=== PATIENT | female | born 1990 | race Caucasian/White ===

== ENCOUNTER 2021-09-10 18:12 | Inpatient (IN) | payer OTHER, SELFPAY ==
--- NOTE | ~2021-09-10 | CT_ITS ---
EXAMINATION: CT HEAD WITHOUT CONTRAST CLINICAL INFORMATION: Altered mental status. COMPARISON: CT head from 08/01/2019. TECHNIQUE: Contiguous axial imaging was performed from the skull base to vertex without intravenous administration of contrast. This CT examination was performed using dose optimization techniques as appropriate, variously including the following: *Automated exposure control. *Adjustment of mA and/or kV according to patient size (this includes techniques or standardized protocols for targeted exams where dose is matched to indication/reason for exam; i.e. extremities or head). *Use of iterative reconstruction technique. DLP: 600 mGy-cm FINDINGS: There is no evidence of acute intracranial hemorrhage or edematous territorial infarction. Chronic small white matter hypoattenuation within the deep white matter of the left parietal lobe. No additional attenuation within the brain parenchyma. Garcia-white matter differentiation is preserved. The ventricles are normal in size and configuration. No evidence for obstructive hydrocephalus. No abnormal mass effect or midline shift. No extra-axial fluid collections. No acute soft tissue or osseous abnormalities. The mastoid air cells and paranasal sinuses are clear. CT/CT head/brain wo con IMPRESSION: 1. No evidence of acute intracranial hemorrhage or edematous territorial infarction. 2. Chronic single nonspecific focus of hypoattenuation within the deep white matter of the left parietal lobe. No additional CT abnormalities to explain the patient's symptoms.
--- NOTE | ~2021-09-10 | XR_ITS ---
EXAMINATION: XR FOOT, RIGHT CLINICAL INFORMATION: Second toe swollen. COMPARISON: None TECHNIQUE: AP, lateral, and oblique views of the right foot. FINDINGS: There is no acute fracture or dislocation. Mild soft tissue swelling is seen in the second digit. The joint spaces are unremarkable. No radiopaque foreign body is seen. XR/XR foot RT 2V IMPRESSION: Mild soft tissue swelling in the second digit without acute underlying osseous abnormality.
[2021-09-10 18:26] VITALS: BP 118/72; PULSE 97; O2SAT 98
[2021-09-10 18:51] VITALS: BP 107/74; PULSE 88; RESP 16; O2SAT 100; BMI 23.1
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
[2021-09-10 20:15] LABS: Appearance Urine CLEAR; Color Urine YELLOW; Glucose Urine UA NEG (NEG); Leukocyte Esterase Urine NEG (NEG); Nitrite Urine NEG (NEG); Specific Gravity - Urine 1.015 (1.005-1.025); Urine Blood NEG (NEG); Urine Ketones 15 MG/DL (NEG); Urine Protein NEG (NEG-TRACE)
[2021-09-10 20:17] LABS: UPreg QC Valid YES; Urine Pregnancy NEGATIVE (NEGATIVE)
[2021-09-10 20:22] LABS: Amphetamine Screen Urine POSITIVE (Not Detect); Barbiturates, Urine Not Detected (Not Detect); Benzodiazepines Screen Urine Not Detected (Not Detect); Cannabinoid Screen Urine Not Detected (Not Detect); Cocaine Screen Urine Not Detected (Not Detect); Fentanyl, urine Not Detected (Not Detect); Opiate Screen Urine Not Detected (Not Detect); Phencyclidine Screen Urine Not Detected (Not Detect)
[2021-09-10 20:31] LABS: COVID-19 Test Negative (Negative)
--- NOTE | 2021-09-11 04:52 | PC.NURSE ---
Patient slept through the night, no distress observed/reported, behavior appropriate and non concerning at this time, med rec completed/pending provider's approval, disposition per [facility] is section 12 inpatient bed search, VSS, patient encouraged to shower but refused, will continue to monitor.
[2021-09-11 06:28] VITALS: BP 113/64; PULSE 59; RESP 18; TEMP 36.9; O2SAT 99
--- NOTE | 2021-09-11 07:01 | PC.NURSE ---
patient appears to remain asleep at present respirations appear to be even and unlabored, patient appears in no distress
[2021-09-11] MEDS: ARIPiprazole 30 MG TABLET PO (12:22)
[2021-09-11 12:44] LABS: COVID-19 Test Negative (Negative); IDNOW Serial# 9DD0AD1C
[2021-09-11 16:00] LABS: MANUAL DIFF FLAG NO
[2021-09-11 16:08] LABS: Basophils Percent Auto 0.5 % (0-2); Eosinophils Absolute Auto 0.1 X10*3/uL (0.0-0.4); Eosinophils Percent Auto 1.1 % (0-4); Hematocrit 38.7 % (37.0-47.0); Hemoglobin 13.1 g/dl (12.0-16.0); Imm Gran Abs Auto 0.01 X10*3/uL (0.00-0.03); Imm Gran Pct Auto 0.2 % (0.0-0.4); Lymphocytes Absolute Auto 1.3 X10*3/uL (1.2-4.9); Lymphocytes Percent Auto 23.3 % (20-40); Mean Corpuscular HGB Conc 33.9 g/dl (31.0-35.0); Mean Corpuscular Hemoglobin 31.5 pg (27.0-33.0); Mean Platelet Volume 10.7 fL (9.4-12.3); Monocytes Absolute Auto 0.3 X10*3/uL (0.1-1.2); Neutrophils Absolute Auto 3.8 x10*3/uL (2.0-8.3); Neutrophils Percent Auto 68.9 % (45-73); Platelet Count 245 X10*3/uL (160-400); Red Blood Count 4.16 X10*6/uL (4.20-5.50); Red Cell Distribution Width 12.1 % (11.0-16.0); White Blood Count 5.5 X10*3/uL (4.8-10.8)
[2021-09-11 16:18] LABS: Alanine Aminotransferase 9 U/L (0-31); Albumin Level 3.6 g/dL (3.5-5.0); Alkaline Phosphatase 58 U/L (39-117); Anion Gap 8 (12-20); Aspartate Amino Transferase 11 U/L (5-31); Bilirubin Total 0.8 mg/dL (0.0-1.0); Blood Urea Nitrogen 7 mg/dL (9-16); Calcium 9.1 mg/dL (8.4-10.2); Carbon Dioxide 27 mmol/L (22-29); Chloride 107 mmol/L (96-108); Creatinine Clr Calc Pharmacy 95.9; Estimated Glomerular Filt Rate > 60; Glucose Random 106 mg/dL (60-115); Sodium 138 mmol/L (135-145); Total Protein 5.8 g/dL (6.5-8.0)
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
[2021-09-12 06:00] VITALS: BP 86/61; PULSE 55; RESP 16; TEMP 36.3; O2SAT 100
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
[2021-09-12 09:03] LABS: Cholesterol 151 mg/dL; HDL Cholesterol 44 mg/dL; LDL Cholesterol Calculated 95 mg/dl; Triglycerides 60 mg/dL
[2021-09-12 09:04] LABS: Estimated Average Glucose 88 mg/dL; Hemoglobin A1c % 4.7 %
[2021-09-12 11:32] LABS: Folate 9.1 ng/mL (> or = 4.0); Vitamin B12 496 pg/mL (200-900)
[2021-09-12 21:51] VITALS: BP 102/64; PULSE 92; TEMP 36.8; O2SAT 98
--- NOTE | 2021-09-12 23:42 | PC.NURSE ---
REFUSED hs risperdal stating she takes abilify.
[2021-09-13 08:57] VITALS: BP 152/68; PULSE 84; RESP 16; TEMP 36.2; O2SAT 97
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
[2021-09-13 20:24] VITALS: BP 108/65; PULSE 98; TEMP 36.6; O2SAT 99
[2021-09-13] MEDS: risperiDONE 1 MG TABLET PO (21:59)
[2021-09-14 10:10] VITALS: BP 116/71; PULSE 101; RESP 14; TEMP 36.8; O2SAT 100
[2021-09-14] MEDS: risperiDONE 1 MG TABLET PO ×2 (10:12→21:59)
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
[2021-09-14 21:50] VITALS: BP 83/61; PULSE 99; TEMP 36.4; O2SAT 96
[2021-09-15] MEDS: risperiDONE 1 MG TABLET PO (10:01)
[2021-09-15 10:55] VITALS: BP 108/69; PULSE 111; RESP 20; TEMP 36.2; O2SAT 100
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
[2021-09-15] MEDS: risperiDONE 2 MG TABLET PO (22:24)
[2021-09-15 22:30] VITALS: BP 119/65; PULSE 112; TEMP 36.6; O2SAT 97
[2021-09-16 09:00] VITALS: BP 104/72; PULSE 105; RESP 20; TEMP 36.6; O2SAT 99
[2021-09-16] MEDS: risperiDONE 2 MG TABLET PO ×2 (09:34→21:11)
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
--- NOTE | 2021-09-16 15:46 | PC.NURSE ---
Patient reports she does not smoke.
[2021-09-16 18:00] VITALS: BP 116/80; PULSE 104; RESP 18; TEMP 36.8; O2SAT 98
--- NOTE | 2021-09-16 18:12 | PC.NURSE ---
Patient agreed to shower and have clothes laundered, linens changed.
[2021-09-16] MEDS: traZODone HCL 50 MG TABLET PO (21:11)
[2021-09-17 10:00] VITALS: BP 119/68; PULSE 117; RESP 16; TEMP 36.8; O2SAT 96
[2021-09-17] MEDS: risperiDONE 2 MG TABLET PO ×2 (10:07→20:04)
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
[2021-09-17 20:08] VITALS: BP 111/83; PULSE 120; TEMP 36.8; O2SAT 99
[2021-09-18 09:30] VITALS: BP 95/53; PULSE 79; RESP 16; TEMP 36.2; O2SAT 98
[2021-09-18] MEDS: risperiDONE 2 MG TABLET PO ×2 (09:32→20:41)
[2021-09-18 12:02] VITALS: BMI 23.6
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
[2021-09-18 20:59] VITALS: BP 125/75; PULSE 120; TEMP 36.6; O2SAT 95
[2021-09-19] MEDS: risperiDONE 2 MG TABLET PO ×2 (08:46→20:47)
[2021-09-19 11:38] VITALS: BP 118/72; PULSE 119; RESP 16; TEMP 36.4; O2SAT 95
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
[2021-09-19 20:51] VITALS: BP 118/79; PULSE 109; TEMP 36.6; O2SAT 96
[2021-09-20 09:49] VITALS: BP 125/76; PULSE 111; RESP 16; TEMP 36.5; O2SAT 98
[2021-09-20] MEDS: risperiDONE 2 MG TABLET PO ×2 (09:49→20:34)
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
[2021-09-20 20:35] VITALS: BP 116/84; PULSE 116; RESP 15; TEMP 36.7; O2SAT 100
[2021-09-21] MEDS: risperiDONE 2 MG TABLET PO ×2 (10:32→21:12)
[2021-09-21 11:09] VITALS: BP 122/73; PULSE 111; RESP 18; TEMP 36.4; O2SAT 95
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
[2021-09-21 18:00] VITALS: BP 139/70; PULSE 98; RESP 18; TEMP 37; O2SAT 98
[2021-09-22] MEDS: risperiDONE 2 MG TABLET PO ×2 (10:04→20:31)
[2021-09-22 10:11] VITALS: BP 125/73; PULSE 123; RESP 16; TEMP 36.6; O2SAT 98
[2021-09-22 18:00] VITALS: BP 107/69; PULSE 114; RESP 16; TEMP 36.8; O2SAT 98
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
[2021-09-23] MEDS: risperiDONE 2 MG TABLET PO ×2 (10:08→21:11)
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
[2021-09-23 22:12] VITALS: BP 127/73; PULSE 112; TEMP 36.6; O2SAT 98
[2021-09-24 08:00] VITALS: BP 120/76; PULSE 104; RESP 14; TEMP 36.4; O2SAT 98
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
[2021-09-24] MEDS: risperiDONE 2 MG TABLET PO (09:38)
[2021-09-24 20:59] VITALS: BP 116/71; PULSE 102; O2SAT 97
[2021-09-24] MEDS: risperiDONE 3 MG TABLET PO (21:06)
[2021-09-24] MEDS: Acetaminophen 325 MG TABLET 650 MG PO (21:14)
[2021-09-24 21:25] VITALS: TEMP 36.6
[2021-09-24] MEDS: guaiFENesin DM 600/30 1 TAB TAB.ER.12H PO (22:46)
[2021-09-24 22:59] LABS: COVID-19 Test Negative (Negative)
[2021-09-25 07:00] VITALS: BMI 24.0
[2021-09-25] MEDS: risperiDONE 3 MG TABLET PO ×2 (10:55→21:24)
[2021-09-25 11:25] VITALS: BP 114/75; PULSE 102; RESP 18; TEMP 36.2; O2SAT 96
[2021-09-25] MEDS: guaiFENesin DM 600/30 1 TAB TAB.ER.12H PO ×2 (12:55→21:24)
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
[2021-09-25 18:00] VITALS: BP 118/67; PULSE 108; RESP 18; TEMP 36.8; O2SAT 97
[2021-09-25] MEDS: Acetaminophen 325 MG TABLET 650 MG PO (21:24)
[2021-09-26] MEDS: risperiDONE 3 MG TABLET PO ×2 (09:59→20:18)
[2021-09-26] MEDS: guaiFENesin DM 600/30 1 TAB TAB.ER.12H PO ×2 (10:04→20:18)
[2021-09-26] MEDS: Acetaminophen 325 MG TABLET 650 MG PO ×2 (10:04→20:18)
[2021-09-26 10:27] VITALS: BP 111/68; PULSE 96; RESP 17; TEMP 36.3; O2SAT 96
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
[2021-09-26 20:14] VITALS: BP 116/70; PULSE 110; TEMP 36.6; O2SAT 96
[2021-09-27 08:30] VITALS: BP 115/62; PULSE 90; RESP 16; TEMP 36.8; O2SAT 96
[2021-09-27] MEDS: risperiDONE 3 MG TABLET PO ×2 (08:30→21:20)
[2021-09-27] MEDS: guaiFENesin DM 600/30 1 TAB TAB.ER.12H PO ×2 (08:33→21:20)
[2021-09-27] MEDS: Acetaminophen 325 MG TABLET 650 MG PO ×2 (08:33→21:20)
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
[2021-09-27] MEDS: Loratadine 10 MG TABLET PO (16:27)
[2021-09-27 21:00] VITALS: BP 113/60; PULSE 112; TEMP 36.7; O2SAT 97
[2021-09-28] MEDS: risperiDONE 3 MG TABLET PO ×2 (08:26→21:09)
[2021-09-28] MEDS: Loratadine 10 MG TABLET PO (08:26)
[2021-09-28 08:30] VITALS: BP 106/71; PULSE 76; RESP 16; TEMP 36.6; O2SAT 97
[2021-09-28] MEDS: Acetaminophen 325 MG TABLET 650 MG PO ×2 (08:44→21:09)
[2021-09-28] MEDS: guaiFENesin DM 600/30 1 TAB TAB.ER.12H PO ×2 (08:44→21:09)
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
[2021-09-28 18:00] VITALS: BP 109/72; PULSE 102; RESP 18; TEMP 36.8; O2SAT 99
[2021-09-29] MEDS: risperiDONE 3 MG TABLET PO ×2 (10:22→21:29)
[2021-09-29] MEDS: Loratadine 10 MG TABLET PO (10:22)
[2021-09-29] MEDS: Acetaminophen 325 MG TABLET 650 MG PO ×2 (10:25→21:29)
[2021-09-29 10:28] VITALS: BP 106/58; PULSE 91; RESP 14; TEMP 36.1; O2SAT 96
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
[2021-09-29 18:00] VITALS: BP 127/65; PULSE 104; RESP 18; TEMP 36.6; O2SAT 99
[2021-09-29] MEDS: guaiFENesin DM 600/30 1 TAB TAB.ER.12H PO (21:29)
[2021-09-30] MEDS: Loratadine 10 MG TABLET PO ×2 (10:09→21:44)
[2021-09-30] MEDS: risperiDONE 3 MG TABLET PO ×2 (10:09→21:50)
[2021-09-30 10:10] VITALS: BP 116/76; PULSE 110; RESP 16; TEMP 36.7; O2SAT 97
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
[2021-09-30 18:00] VITALS: BP 108/43; PULSE 140; RESP 18; TEMP 36.6; O2SAT 98
[2021-09-30] MEDS: Acetaminophen 325 MG TABLET 650 MG PO (23:43)
[2021-10-01 01:40] VITALS: BP 97/56; PULSE 102; RESP 14; O2SAT 97
[2021-10-01 08:37] VITALS: BP 114/72; PULSE 91; RESP 16; TEMP 36.7; O2SAT 98
[2021-10-01] MEDS: guaiFENesin DM 600/30 1 TAB TAB.ER.12H PO ×2 (08:39→20:40)
[2021-10-01] MEDS: risperiDONE 3 MG TABLET PO ×2 (08:40→20:36)
[2021-10-01] MEDS: Loratadine 10 MG TABLET PO (08:55)
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
[2021-10-01 18:00] VITALS: BP 101/68; PULSE 131; RESP 20; TEMP 36.6; O2SAT 98
--- NOTE | 2021-10-01 20:12 | PC.NURSE ---
At 20:00 pt was seen with money in her hand. T/w asked pt how much money she had, stated $21. Pt refused to give t/w the money to be put in the safe with security. Pt reported she has been carrying it around for days
[2021-10-01] MEDS: Acetaminophen 325 MG TABLET 650 MG PO (22:04)
--- NOTE | 2021-10-02 00:20 | PC.NURSE ---
Pt was noted by PC to be tracking blood on the floor from a cut upon her foot. Upon assessment by this RN, pt was found to have a round cut on the tip of her 2nd right toe. Wound was cleansed with normal saline, bacitracin applied and bandaids also applied. Pt was monitored throughout shift. Pt stated no pain.
[2021-10-02 08:30] VITALS: BP 123/78; PULSE 80; RESP 16; TEMP 36.3; O2SAT 99
[2021-10-02] MEDS: risperiDONE 3 MG TABLET PO ×2 (08:38→20:11)
[2021-10-02] MEDS: guaiFENesin DM 600/30 1 TAB TAB.ER.12H PO ×2 (08:38→20:11)
[2021-10-02] MEDS: Loratadine 10 MG TABLET PO (08:38)
[2021-10-02 09:00] VITALS: BMI 24.9
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
[2021-10-02 18:00] VITALS: BP 131/59; PULSE 137; RESP 18; TEMP 36.7; O2SAT 96
[2021-10-02] MEDS: Acetaminophen 325 MG TABLET 650 MG PO (20:11)
[2021-10-03 09:50] VITALS: BP 116/78; PULSE 97; RESP 15; TEMP 36.9; O2SAT 95
[2021-10-03] MEDS: risperiDONE 3 MG TABLET PO (09:53)
[2021-10-03] MEDS: Loratadine 10 MG TABLET PO (09:53)
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
[2021-10-03 18:00] VITALS: BP 116/72; PULSE 106; RESP 18; O2SAT 98
[2021-10-03] MEDS: Benztropine Mesylate 1 MG TABLET PO (18:25)
[2021-10-03] MEDS: Lithium Carbonate ER 450 MG TABLET.ER PO (20:39)
[2021-10-03] MEDS: OLANZapine ODT 10 MG TAB.RAPDIS TRANSLINGU (20:39)
[2021-10-03] MEDS: Acetaminophen 325 MG TABLET 650 MG PO (21:12)
[2021-10-04 08:30] VITALS: BP 108/66; PULSE 107; RESP 16; TEMP 36.6; O2SAT 96
[2021-10-04] MEDS: risperiDONE 1 MG TABLET PO (09:35)
[2021-10-04] MEDS: Loratadine 10 MG TABLET PO (09:35)
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
[2021-10-04] MEDS: Benztropine Mesylate 1 MG TABLET PO (18:02)
[2021-10-04] MEDS: Lithium Carbonate ER 450 MG TABLET.ER PO (20:22)
[2021-10-04] MEDS: OLANZapine ODT 10 MG TAB.RAPDIS TRANSLINGU (20:22)
[2021-10-04] MEDS: Acetaminophen 325 MG TABLET 650 MG PO (20:22)
[2021-10-04 20:26] VITALS: BP 96/74; PULSE 120; RESP 16; TEMP 36.3; O2SAT 98
[2021-10-05 08:15] VITALS: BP 112/77; PULSE 78; RESP 14; TEMP 36.9; O2SAT 97
[2021-10-05] MEDS: Loratadine 10 MG TABLET PO (08:36)
[2021-10-05] MEDS: risperiDONE 1 MG TABLET PO (08:37)
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
[2021-10-05 18:00] VITALS: BP 110/66; PULSE 108; RESP 16; TEMP 36.3; O2SAT 95
[2021-10-05] MEDS: Lithium Carbonate ER 450 MG TABLET.ER PO (20:10)
[2021-10-05] MEDS: OLANZapine ODT 10 MG TAB.RAPDIS TRANSLINGU (20:10)
[2021-10-06 08:14] VITALS: BP 102/68; PULSE 107; RESP 16; TEMP 37.1; O2SAT 97
[2021-10-06] MEDS: Loratadine 10 MG TABLET PO (08:15)
[2021-10-06] MEDS: risperiDONE 1 MG TABLET PO (08:15)
[2021-10-06 18:00] VITALS: BP 105/69; PULSE 108; RESP 16; TEMP 36.8; O2SAT 96
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
[2021-10-06 19:11] LABS: Lithium 0.22 mmol/L (0.60-1.20)
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
[2021-10-06] MEDS: OLANZapine ODT 10 MG TAB.RAPDIS TRANSLINGU (20:24)
[2021-10-06] MEDS: Lithium Carbonate ER 450 MG TABLET.ER PO (20:24)
[2021-10-06] MEDS: HaloperidoL 5 MG TABLET PO (20:24)
[2021-10-07 08:19] VITALS: BP 106/66; PULSE 87; RESP 16; O2SAT 98
[2021-10-07] MEDS: Loratadine 10 MG TABLET PO (08:25)
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
[2021-10-07 20:42] VITALS: BP 87/52; PULSE 84; TEMP 36.2; O2SAT 96
[2021-10-07] MEDS: Lithium Carbonate ER 450 MG TABLET.ER PO (20:53)
[2021-10-07] MEDS: OLANZapine ODT 10 MG TAB.RAPDIS TRANSLINGU (20:53)
[2021-10-07] MEDS: HaloperidoL 5 MG TABLET PO (20:53)
[2021-10-07 22:56] VITALS: BP 92/51; PULSE 90
[2021-10-08 08:19] VITALS: BP 85/56; PULSE 58; RESP 16; TEMP 36.6; O2SAT 98
[2021-10-08 08:34] VITALS: BP 79/50; PULSE 71
[2021-10-08 08:35] VITALS: BP 91/65; BP 97/66; PULSE 77; PULSE 99
[2021-10-08] MEDS: Loratadine 10 MG TABLET PO (08:38)
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
[2021-10-08] MEDS: Benztropine Mesylate 1 MG TABLET PO (20:47)
[2021-10-08] MEDS: OLANZapine ODT 10 MG TAB.RAPDIS TRANSLINGU (21:38)
[2021-10-08] MEDS: Lithium Carbonate ER 450 MG TABLET.ER PO (21:39)
[2021-10-08] MEDS: HaloperidoL 5 MG TABLET PO (21:39)
[2021-10-08 21:45] VITALS: BP 103/69; PULSE 97; RESP 18; TEMP 36.7; O2SAT 97
[2021-10-09] MEDS: Loratadine 10 MG TABLET PO (09:01)
[2021-10-09 09:03] VITALS: BP 110/69; PULSE 65; RESP 15; TEMP 36.4; O2SAT 100
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
[2021-10-09] MEDS: Benztropine Mesylate 1 MG TABLET PO ×2 (16:44→22:03)
[2021-10-09] MEDS: HaloperidoL 5 MG TABLET PO (20:40)
[2021-10-09] MEDS: OLANZapine ODT 10 MG TAB.RAPDIS TRANSLINGU (20:40)
[2021-10-09] MEDS: Lithium Carbonate ER 450 MG TABLET.ER PO (20:40)
[2021-10-09 20:41] VITALS: BP 105/66; PULSE 111; RESP 18; TEMP 36.5; O2SAT 94
[2021-10-09] MEDS: traZODone HCL 50 MG TABLET PO (21:19)
[2021-10-10] MEDS: Loratadine 10 MG TABLET PO (08:30)
[2021-10-10 08:41] VITALS: BP 97/55; PULSE 56; RESP 16; TEMP 36.8; O2SAT 100
[2021-10-10 12:07] LABS: Erythrocyte Sedimentation Rate 2 MM/HR (0-20)
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
[2021-10-10] MEDS: LORazepam 2 MG/ML VIAL IM (17:38)
[2021-10-10 20:15] VITALS: BP 103/51; PULSE 93; RESP 16; TEMP 36.7; O2SAT 95
[2021-10-10] MEDS: hydrOXYzine HCL 25 MG TABLET PO (21:07)
[2021-10-10] MEDS: OLANZapine ODT 10 MG TAB.RAPDIS 15 MG TRANSLINGU (21:08)
[2021-10-10] MEDS: LORazepam 1 MG TABLET PO (21:08)
[2021-10-10] MEDS: Lithium Carbonate ER 450 MG TABLET.ER PO (21:08)
[2021-10-11 09:20] VITALS: BP 108/73; PULSE 92; RESP 16; TEMP 36.1; O2SAT 97
[2021-10-11] MEDS: Loratadine 10 MG TABLET PO (09:20)
[2021-10-11] MEDS: LORazepam 1 MG TABLET PO ×2 (09:20→21:01)
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
[2021-10-11 20:11] VITALS: BP 91/51; PULSE 91; RESP 16; TEMP 36.8; O2SAT 98
[2021-10-11] MEDS: Lithium Carbonate ER 450 MG TABLET.ER PO (21:01)
[2021-10-11] MEDS: OLANZapine ODT 10 MG TAB.RAPDIS 15 MG TRANSLINGU (21:01)
[2021-10-11] MEDS: hydrOXYzine HCL 25 MG TABLET PO (21:58)
[2021-10-12 09:47] VITALS: BP 96/57; PULSE 72; RESP 15; TEMP 36.1; O2SAT 97
[2021-10-12] MEDS: Loratadine 10 MG TABLET PO (09:49)
[2021-10-12] MEDS: LORazepam 1 MG TABLET PO ×2 (09:49→21:12)
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
[2021-10-12 21:04] VITALS: BP 102/55; PULSE 87; RESP 18; TEMP 36.4; O2SAT 98
[2021-10-12] MEDS: Lithium Carbonate ER 450 MG TABLET.ER PO (21:12)
[2021-10-12] MEDS: OLANZapine ODT 10 MG TAB.RAPDIS 15 MG TRANSLINGU (21:14)
[2021-10-12] MEDS: hydrOXYzine HCL 25 MG TABLET PO (21:25)
[2021-10-13 08:45] VITALS: BP 102/67; PULSE 75; RESP 12; TEMP 36.6; O2SAT 97
[2021-10-13] MEDS: Loratadine 10 MG TABLET PO (08:50)
[2021-10-13] MEDS: LORazepam 1 MG TABLET PO ×2 (08:50→21:51)
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
[2021-10-13] MEDS: Benztropine Mesylate 1 MG TABLET PO (18:59)
[2021-10-13] MEDS: Lithium Carbonate ER 450 MG TABLET.ER PO (21:51)
[2021-10-13] MEDS: hydrOXYzine HCL 25 MG TABLET PO (21:52)
[2021-10-13] MEDS: OLANZapine ODT 10 MG TAB.RAPDIS 15 MG TRANSLINGU (21:52)
[2021-10-13 21:53] VITALS: BP 105/73; PULSE 110; RESP 17; TEMP 36.4; O2SAT 96
[2021-10-14] MEDS: Acetaminophen 325 MG TABLET 650 MG PO (00:52)
[2021-10-14 08:00] VITALS: BP 96/59; PULSE 72; RESP 16; TEMP 36.3; O2SAT 99
[2021-10-14] MEDS: Loratadine 10 MG TABLET PO (08:27)
[2021-10-14] MEDS: LORazepam 1 MG TABLET PO ×2 (08:27→21:02)
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
--- NOTE | 2021-10-14 10:00 | PM.EVENT ---
Event Note Date of Service: 10/14/21 Event Note: For [employer] Application- Section 3 Ms. Zhang is a 31 year-old woman with hx of schizoaffective disorder. Pt admitted to [facility] on 09/25 due to pentecostal preoccupation, inability to care for herself- poor hygiene, mostly in room. Pt had trial of risperidone up to 3mg po BID for about 3-4 weeks with no response. Pt continued to present as disheveled, religiously preoccupied, minimal interaction with peers. Pt declined switching medications. She was committed on 10/09. She was started on olanzapine, lithium. Ativan added for catatonic like symptoms including long periods of staring, mutism (minimally spontaneous speech), psychomotor retardation. No change in presentation so far.
[2021-10-14 11:01] LABS: Anti Nuclear Antibody Screen NEGATIVE (NEGATIVE)
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
[2021-10-14 20:51] VITALS: BP 106/57; PULSE 84; RESP 16; TEMP 36.6; O2SAT 96
[2021-10-14] MEDS: Lithium Carbonate ER 450 MG TABLET.ER PO (21:02)
[2021-10-14] MEDS: hydrOXYzine HCL 25 MG TABLET PO (21:02)
[2021-10-14] MEDS: OLANZapine ODT 10 MG TAB.RAPDIS 15 MG TRANSLINGU (21:03)
[2021-10-15] MEDS: Acetaminophen 325 MG TABLET 650 MG PO ×3 (01:22→20:45)
[2021-10-15 07:45] VITALS: BP 111/73; BP 112/67; BP 85/51; PULSE 110; PULSE 74; PULSE 90; RESP 14; TEMP 36.6; O2SAT 98
[2021-10-15] MEDS: LORazepam 1 MG TABLET PO ×2 (07:59→20:45)
[2021-10-15] MEDS: Loratadine 10 MG TABLET PO (07:59)
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
[2021-10-15 14:17] LABS: Cardiolipin IgG Ab <2.0 GPL-U/mL; Cardiolipin IgM Ab 2.5 MPL-U/mL
[2021-10-15] MEDS: Benztropine Mesylate 1 MG TABLET PO (18:32)
[2021-10-15 19:23] LABS: MANUAL DIFF FLAG NO
[2021-10-15 19:25] LABS: Basophils Absolute Auto 0.1 X10*3/uL (0.0-0.2); Basophils Percent Auto 0.8 % (0-2); Eosinophils Absolute Auto 0.3 X10*3/uL (0.0-0.4); Eosinophils Percent Auto 4.7 % (0-4); Hematocrit 39.2 % (37.0-47.0); Imm Gran Abs Auto 0.03 X10*3/uL (0.00-0.03); Imm Gran Pct Auto 0.5 % (0.0-0.4); Lymphocytes Absolute Auto 1.7 X10*3/uL (1.2-4.9); Lymphocytes Percent Auto 25.5 % (20-40); Mean Corpuscular HGB Conc 33.2 g/dl (31.0-35.0); Mean Corpuscular Volume 96.6 fL (80.0-98.0); Mean Platelet Volume 10.9 fL (9.4-12.3); Monocytes Absolute Auto 0.5 X10*3/uL (0.1-1.2); Monocytes Percent Auto 8.1 % (2-11); Neutrophils Percent Auto 60.4 % (45-73); Platelet Count 255 X10*3/uL (160-400); Red Blood Count 4.06 X10*6/uL (4.20-5.50); Red Cell Distribution Width 12.3 % (11.0-16.0); White Blood Count 6.6 X10*3/uL (4.8-10.8)
[2021-10-15 19:40] LABS: Lithium 0.21 mmol/L (0.60-1.20)
[2021-10-15 19:48] LABS: Alanine Aminotransferase 59 U/L (0-31); Albumin Level 4.1 g/dL (3.5-5.0); Alkaline Phosphatase 81 U/L (39-117); Anion Gap 14 (12-20); Aspartate Amino Transferase 27 U/L (5-31); Bilirubin Total 0.7 mg/dL (0.0-1.0); Blood Urea Nitrogen 12 mg/dL (9-16); Calcium 9.3 mg/dL (8.4-10.2); Carbon Dioxide 25 mmol/L (22-29); Chloride 104 mmol/L (96-108); Creatinine Clr Calc Pharmacy 97.2; Estimated Glomerular Filt Rate > 60; Glucose Random 134 mg/dL (60-115); Potassium 4.2 mmol/L (3.3-5.1); Sodium 139 mmol/L (135-145); Total Protein 6.7 g/dL (6.5-8.0)
[2021-10-15 20:11] LABS: Thyroid Stimulating Hormone 1.36 uIU/mL (0.32-4.0)
[2021-10-15] MEDS: hydrOXYzine HCL 25 MG TABLET PO (20:45)
[2021-10-15] MEDS: HaloperidoL 5 MG TABLET PO (20:45)
[2021-10-15] MEDS: Lithium Carbonate ER 450 MG TABLET.ER PO (20:45)
[2021-10-15 21:10] VITALS: BP 109/75; PULSE 112; RESP 18; TEMP 36.4; O2SAT 96
[2021-10-15] MEDS: traZODone HCL 100 MG TABLET PO (23:48)
[2021-10-16] MEDS: Benztropine Mesylate 1 MG TABLET PO ×2 (01:46→18:48)
[2021-10-16 06:00] VITALS: BP 106/72; PULSE 84; RESP 16; TEMP 34.8; O2SAT 100
[2021-10-16 07:00] VITALS: BMI 26.4
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
[2021-10-16 18:00] VITALS: BP 114/72; PULSE 118; RESP 16; TEMP 36.4; O2SAT 97
[2021-10-16] MEDS: Lithium Carbonate ER 450 MG TABLET.ER PO (20:47)
[2021-10-16] MEDS: HaloperidoL 5 MG TABLET PO (20:47)
[2021-10-16] MEDS: LORazepam 1 MG TABLET PO (20:47)
[2021-10-16] MEDS: hydrOXYzine HCL 25 MG TABLET PO (20:48)
[2021-10-16] MEDS: traZODone HCL 100 MG TABLET PO (22:31)
[2021-10-17 08:00] VITALS: BP 103/71; BP 98/76; PULSE 106; PULSE 80; RESP 16; TEMP 36.7; O2SAT 98
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
[2021-10-17] MEDS: Benztropine Mesylate 1 MG TABLET PO (15:10)
[2021-10-17 20:05] VITALS: BP 110/68; PULSE 95; RESP 17; TEMP 36.4; O2SAT 97
[2021-10-17] MEDS: HaloperidoL 5 MG TABLET PO (20:12)
[2021-10-17] MEDS: Lithium Carbonate ER 450 MG TABLET.ER PO (20:12)
[2021-10-17] MEDS: LORazepam 1 MG TABLET PO (20:12)
[2021-10-17] MEDS: hydrOXYzine HCL 25 MG TABLET PO (20:12)
[2021-10-17] MEDS: Acetaminophen 325 MG TABLET 650 MG PO (20:30)
[2021-10-17] MEDS: traZODone HCL 100 MG TABLET PO (22:43)
[2021-10-18 09:33] VITALS: BP 116/70; PULSE 85; RESP 20; TEMP 36.1; O2SAT 96
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
[2021-10-18] MEDS: Benztropine Mesylate 1 MG TABLET PO (16:28)
[2021-10-18] MEDS: HaloperidoL 5 MG TABLET PO ×2 (17:12→20:30)
[2021-10-18 18:00] VITALS: BP 104/70; PULSE 72; RESP 20; TEMP 36.6; O2SAT 97
[2021-10-18] MEDS: Acetaminophen 325 MG TABLET 650 MG PO (18:33)
[2021-10-18] MEDS: Lithium Carbonate ER 450 MG TABLET.ER PO (20:31)
[2021-10-18] MEDS: LORazepam 1 MG TABLET PO (20:31)
[2021-10-18] MEDS: hydrOXYzine HCL 25 MG TABLET PO (20:31)
[2021-10-19 06:00] VITALS: BP 82/54; PULSE 75; RESP 16; TEMP 36.6; O2SAT 97
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
[2021-10-19] MEDS: Benztropine Mesylate 1 MG TABLET PO (15:22)
[2021-10-19] MEDS: HaloperidoL 5 MG TABLET PO ×3 (16:22→22:22)
[2021-10-19] MEDS: Acetaminophen 325 MG TABLET 650 MG PO (18:28)
[2021-10-19 21:14] VITALS: BP 106/54; PULSE 101; RESP 16; TEMP 36.4; O2SAT 98
[2021-10-19] MEDS: Lithium Carbonate ER 450 MG TABLET.ER PO (21:19)
[2021-10-19] MEDS: LORazepam 1 MG TABLET PO (21:19)
[2021-10-19] MEDS: hydrOXYzine HCL 25 MG TABLET PO (21:35)
[2021-10-20 06:00] VITALS: BP 98/51; PULSE 64; RESP 18; TEMP 36.4; O2SAT 96
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
[2021-10-20] MEDS: Benztropine Mesylate 1 MG TABLET PO (15:07)
[2021-10-20] MEDS: Acetaminophen 325 MG TABLET 650 MG PO (15:23)
[2021-10-20] MEDS: HaloperidoL 5 MG TABLET PO (21:10)
[2021-10-20] MEDS: hydrOXYzine HCL 25 MG TABLET PO (21:11)
[2021-10-20] MEDS: cloZAPine 25 MG TABLET 12.5 MG PO (21:11)
[2021-10-20] MEDS: LORazepam 1 MG TABLET PO (21:11)
[2021-10-20 21:30] VITALS: BP 108/71; PULSE 111; RESP 18; TEMP 36.6; O2SAT 98
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
[2021-10-21 09:40] VITALS: BP 102/58; PULSE 70; RESP 17; TEMP 35.9; O2SAT 95
[2021-10-21] MEDS: Acetaminophen 325 MG TABLET 650 MG PO (14:56)
[2021-10-21] MEDS: Benztropine Mesylate 1 MG TABLET PO (14:56)
[2021-10-21] MEDS: LORazepam 1 MG TABLET PO ×2 (18:06→20:17)
[2021-10-21 20:17] VITALS: BP 111/68; PULSE 118; RESP 20; TEMP 36.6; O2SAT 98
[2021-10-21] MEDS: HaloperidoL 5 MG TABLET PO (20:17)
[2021-10-21] MEDS: hydrOXYzine HCL 25 MG TABLET PO (20:17)
[2021-10-21] MEDS: cloZAPine 25 MG TABLET 12.5 MG PO (20:17)
[2021-10-22 08:30] VITALS: BP 106/70; PULSE 72; RESP 16; TEMP 36.7; O2SAT 98
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
[2021-10-22 09:01] LABS: Neut%MD 52.8 %; Neutrophils Absolute Auto 3.4 x10*3/uL (2.0-8.3); WBCANC 6.5 X10*3/uL
[2021-10-22] MEDS: LORazepam 1 MG TABLET PO ×2 (15:48→20:11)
[2021-10-22] MEDS: Benztropine Mesylate 1 MG TABLET PO (19:28)
[2021-10-22 20:05] VITALS: BP 116/78; PULSE 129; RESP 18; TEMP 36.3; O2SAT 97
[2021-10-22] MEDS: HaloperidoL 5 MG TABLET PO (20:11)
[2021-10-22] MEDS: hydrOXYzine HCL 25 MG TABLET PO (20:11)
[2021-10-22] MEDS: cloZAPine 25 MG TABLET PO (20:11)
[2021-10-23] MEDS: traZODone HCL 100 MG TABLET PO (00:39)
[2021-10-23] MEDS: LORazepam 1 MG TABLET PO (00:39)
[2021-10-23 08:37] VITALS: BP 87/52; PULSE 87; RESP 16; TEMP 36.5; O2SAT 96
[2021-10-23 12:05] VITALS: BMI 26.9
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
[2021-10-23 18:00] VITALS: BP 98/56; PULSE 106; RESP 18; TEMP 36.8; O2SAT 97
[2021-10-23] MEDS: LORazepam 1 MG TABLET 2 MG PO (20:41)
[2021-10-23] MEDS: cloZAPine 25 MG TABLET PO (20:41)
[2021-10-23] MEDS: Benztropine Mesylate 1 MG TABLET PO (20:41)
[2021-10-23] MEDS: hydrOXYzine HCL 25 MG TABLET PO (20:41)
[2021-10-23] MEDS: HaloperidoL 5 MG TABLET 2.5 MG PO (20:43)
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
[2021-10-24 11:19] VITALS: BP 87/52; PULSE 79
[2021-10-24 11:24] VITALS: BP 103/72; BP 117/74; PULSE 120; PULSE 94
[2021-10-24] MEDS: LORazepam 1 MG TABLET PO (14:31)
[2021-10-24 17:51] VITALS: BP 117/74; PULSE 80
[2021-10-24 17:52] VITALS: BP 119/83; PULSE 89
[2021-10-24 17:53] VITALS: BP 133/78; PULSE 98
[2021-10-24] MEDS: Benztropine Mesylate 1 MG TABLET PO (18:21)
[2021-10-24] MEDS: HaloperidoL 5 MG TABLET 2.5 MG PO (20:14)
[2021-10-24] MEDS: LORazepam 1 MG TABLET 2 MG PO (20:14)
[2021-10-24] MEDS: cloZAPine 25 MG TABLET PO (20:15)
[2021-10-24] MEDS: hydrOXYzine HCL 25 MG TABLET PO (20:18)
[2021-10-24 20:22] VITALS: BP 117/64; PULSE 105; TEMP 36.8; O2SAT 95
[2021-10-25] MEDS: LORazepam 1 MG TABLET PO ×3 (00:35→23:42)
[2021-10-25] MEDS: traZODone HCL 100 MG TABLET PO (00:35)
[2021-10-25 09:59] VITALS: BP 85/53; PULSE 68; TEMP 36.6; O2SAT 97
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
[2021-10-25 20:09] VITALS: BP 115/61; PULSE 102; TEMP 36.6; O2SAT 95
[2021-10-25] MEDS: cloZAPine 25 MG TABLET 37.5 MG PO (20:12)
[2021-10-25] MEDS: HaloperidoL 5 MG TABLET 2.5 MG PO (20:13)
[2021-10-26 13:02] VITALS: BP 101/60; PULSE 96; RESP 12; TEMP 35.9; O2SAT 100
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
--- NOTE | 2021-10-26 16:04 | ECG_ITS ---
Test Reason : medication trial Blood Pressure : / mmHG Vent. Rate : 102 BPM Atrial Rate : 102 BPM P-R Int : 134 ms QRS Dur : 078 ms QT Int : 346 ms P-R-T Axes : 073 074 053 degrees QTc Int : 450 ms Sinus tachycardia with occasional Premature ventricular complexes Otherwise normal ECG No previous ECGs available Referred By: Elida Jackson Electronically Signed By:BOLIVAR HOLDEN
[2021-10-26] MEDS: Benztropine Mesylate 1 MG TABLET PO (16:23)
[2021-10-26] MEDS: LORazepam 1 MG TABLET PO ×2 (17:30→20:21)
[2021-10-26 20:17] VITALS: BP 112/68; PULSE 138; RESP 18; TEMP 36.4; O2SAT 97
[2021-10-26] MEDS: HaloperidoL 5 MG TABLET 2.5 MG PO (20:20)
[2021-10-26] MEDS: cloZAPine 25 MG TABLET 37.5 MG PO (20:20)
[2021-10-26] MEDS: hydrOXYzine HCL 25 MG TABLET PO (20:21)
[2021-10-26] MEDS: traZODone HCL 100 MG TABLET PO (21:55)
[2021-10-27 09:16] VITALS: BP 109/70; PULSE 74; RESP 18; TEMP 36.4; O2SAT 98
[2021-10-27] MEDS: LORazepam 1 MG TABLET PO ×2 (15:32→20:09)
[2021-10-27] MEDS: Benztropine Mesylate 1 MG TABLET PO (15:32)
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
[2021-10-27 20:08] VITALS: BP 117/72; PULSE 133; RESP 18; TEMP 36.6; O2SAT 99
[2021-10-27] MEDS: HaloperidoL 5 MG TABLET 2.5 MG PO (20:09)
[2021-10-27] MEDS: cloZAPine 25 MG TABLET 50 MG PO (20:09)
[2021-10-27] MEDS: hydrOXYzine HCL 25 MG TABLET PO (20:10)
[2021-10-27] MEDS: traZODone HCL 100 MG TABLET PO ×2 (20:10→23:32)
[2021-10-28] MEDS: LORazepam 1 MG TABLET PO ×3 (01:20→21:24)
[2021-10-28 09:21] LABS: Neut%MD 50.5 %; Neutrophils Absolute Auto 3.1 x10*3/uL (2.0-8.3); WBCANC 6.1 X10*3/uL
[2021-10-28 10:00] VITALS: BP 90/55; PULSE 68; RESP 18; TEMP 36.2; O2SAT 98
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
[2021-10-28] MEDS: Benztropine Mesylate 1 MG TABLET PO (16:29)
[2021-10-28 20:40] VITALS: BP 125/82; PULSE 124; RESP 20; TEMP 36.6; O2SAT 97
[2021-10-28] MEDS: HaloperidoL 5 MG TABLET 2.5 MG PO (21:24)
[2021-10-28] MEDS: hydrOXYzine HCL 25 MG TABLET PO (21:24)
[2021-10-28] MEDS: cloZAPine 25 MG TABLET 50 MG PO (21:24)
[2021-10-28] MEDS: traZODone HCL 100 MG TABLET PO (21:26)
[2021-10-28] MEDS: Acetaminophen 325 MG TABLET 650 MG PO (23:17)
[2021-10-29] MEDS: traZODone HCL 100 MG TABLET PO ×2 (00:04→20:17)
[2021-10-29] MEDS: LORazepam 1 MG TABLET PO ×3 (00:04→20:18)
[2021-10-29 12:23] VITALS: BP 97/59; PULSE 88; RESP 16; TEMP 36.5; O2SAT 97
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
[2021-10-29 20:14] VITALS: BP 111/85; PULSE 120; TEMP 36.7; O2SAT 94
[2021-10-29] MEDS: cloZAPine 25 MG TABLET 62.5 MG PO (20:17)
[2021-10-29] MEDS: hydrOXYzine HCL 25 MG TABLET PO (20:18)
[2021-10-30 08:30] VITALS: BP 100/62; PULSE 116; RESP 16; TEMP 36.6; O2SAT 97
[2021-10-30 10:00] VITALS: BMI 27.3
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
[2021-10-30] MEDS: Propranolol HCL 10 MG TABLET PO ×2 (15:45→20:22)
[2021-10-30 18:00] VITALS: BP 104/61; PULSE 103; RESP 18; TEMP 36.7; O2SAT 99
[2021-10-30] MEDS: Acetaminophen 325 MG TABLET 650 MG PO (18:00)
[2021-10-30] MEDS: traZODone HCL 100 MG TABLET PO (20:21)
[2021-10-30] MEDS: LORazepam 1 MG TABLET PO (20:22)
[2021-10-30] MEDS: hydrOXYzine HCL 25 MG TABLET PO (20:22)
[2021-10-30] MEDS: cloZAPine 25 MG TABLET 62.5 MG PO (20:22)
[2021-10-31 08:19] VITALS: BP 100/59; PULSE 75; RESP 16; TEMP 36.1; O2SAT 96
[2021-10-31] MEDS: Propranolol HCL 10 MG TABLET PO ×2 (08:21→20:43)
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
[2021-10-31] MEDS: LORazepam 1 MG TABLET PO ×2 (16:11→20:43)
[2021-10-31 20:38] VITALS: BP 106/66; PULSE 130; RESP 18; TEMP 36.4; O2SAT 96
[2021-10-31] MEDS: traZODone HCL 100 MG TABLET PO (20:42)
[2021-10-31] MEDS: cloZAPine 25 MG TABLET 75 MG PO (20:42)
[2021-10-31] MEDS: hydrOXYzine HCL 25 MG TABLET PO (20:42)
[2021-10-31] MEDS: Acetaminophen 325 MG TABLET 650 MG PO (21:59)
[2021-11-01 09:00] VITALS: BP 109/58; PULSE 80; RESP 20; TEMP 36.1; O2SAT 97
[2021-11-01] MEDS: Propranolol HCL 10 MG TABLET PO ×2 (09:11→20:31)
[2021-11-01] MEDS: LORazepam 1 MG TABLET PO ×2 (15:30→20:31)
[2021-11-01] MEDS: Benztropine Mesylate 1 MG TABLET PO (15:30)
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
[2021-11-01 20:28] VITALS: BP 106/66; PULSE 126; RESP 18; TEMP 36.6; O2SAT 98
[2021-11-01] MEDS: hydrOXYzine HCL 25 MG TABLET PO (20:31)
[2021-11-01] MEDS: traZODone HCL 100 MG TABLET PO (20:31)
[2021-11-01] MEDS: cloZAPine 25 MG TABLET 75 MG PO (20:31)
[2021-11-01] MEDS: Acetaminophen 325 MG TABLET 650 MG PO (20:31)
[2021-11-02 08:45] VITALS: BP 109/69; PULSE 78; RESP 20; O2SAT 97
[2021-11-02] MEDS: Propranolol HCL 10 MG TABLET PO ×2 (08:58→20:32)
[2021-11-02] MEDS: LORazepam 1 MG TABLET PO ×2 (15:15→20:32)
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
[2021-11-02 18:00] VITALS: BP 121/60; PULSE 112; RESP 18; TEMP 36.6; O2SAT 98
[2021-11-02] MEDS: traZODone HCL 100 MG TABLET PO (20:32)
[2021-11-02] MEDS: cloZAPine 25 MG TABLET 75 MG PO (20:32)
[2021-11-02] MEDS: hydrOXYzine HCL 25 MG TABLET PO (20:33)
[2021-11-02] MEDS: Acetaminophen 325 MG TABLET 650 MG PO (20:33)
[2021-11-02] MEDS: Benztropine Mesylate 1 MG TABLET PO (20:33)
[2021-11-03] MEDS: Propranolol HCL 10 MG TABLET PO ×2 (10:22→21:23)
[2021-11-03 10:35] VITALS: BP 109/59; PULSE 114; RESP 16; TEMP 36.8; O2SAT 94
[2021-11-03] MEDS: LORazepam 1 MG TABLET PO ×2 (12:21→21:23)
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
[2021-11-03 18:00] VITALS: BP 102/60; PULSE 98; RESP 16; TEMP 36.7; O2SAT 95
[2021-11-03] MEDS: cloZAPine 25 MG TABLET 75 MG PO (21:23)
[2021-11-03] MEDS: traZODone HCL 100 MG TABLET PO (21:23)
[2021-11-03] MEDS: Benztropine Mesylate 1 MG TABLET PO (21:23)
[2021-11-03] MEDS: hydrOXYzine HCL 25 MG TABLET PO (21:23)
[2021-11-04 08:33] VITALS: BP 83/53; PULSE 78; RESP 16; TEMP 36.7; O2SAT 96
[2021-11-04 09:06] LABS: Neut%MD 46.7 %; Neutrophils Absolute Auto 1.6 x10*3/uL (2.0-8.3); WBCANC 3.5 X10*3/uL
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
[2021-11-04 20:14] VITALS: BP 117/75; PULSE 110; TEMP 36.8; O2SAT 98
[2021-11-04] MEDS: Acetaminophen 325 MG TABLET 650 MG PO (20:23)
[2021-11-04] MEDS: cloZAPine 25 MG TABLET 75 MG PO (20:24)
[2021-11-04] MEDS: Propranolol HCL 10 MG TABLET PO (20:24)
[2021-11-04] MEDS: hydrOXYzine HCL 25 MG TABLET PO (20:24)
[2021-11-04] MEDS: LORazepam 1 MG TABLET PO (20:24)
[2021-11-04] MEDS: traZODone HCL 100 MG TABLET PO (20:24)
--- NOTE | 2021-11-05 03:33 | PC.NURSE ---
anc 1.6 will address level with team in am
[2021-11-05 08:39] VITALS: BP 83/51; PULSE 80; RESP 16; TEMP 36.6; O2SAT 97
[2021-11-05] MEDS: LORazepam 1 MG TABLET PO ×2 (14:02→20:34)
[2021-11-05 17:45] LABS: Neut%MD 52.2 %; Neutrophils Absolute Auto 2.5 x10*3/uL (2.0-8.3); WBCANC 4.8 X10*3/uL
[2021-11-05] MEDS: cloZAPine 25 MG TABLET 75 MG PO (20:33)
[2021-11-05] MEDS: traZODone HCL 100 MG TABLET PO (20:34)
[2021-11-05] MEDS: Acetaminophen 325 MG TABLET 650 MG PO (20:34)
[2021-11-05] MEDS: Propranolol HCL 10 MG TABLET PO (20:34)
[2021-11-05] MEDS: hydrOXYzine HCL 25 MG TABLET PO (20:34)
[2021-11-05 20:37] VITALS: BP 106/66; PULSE 109; TEMP 36.6; O2SAT 97
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
[2021-11-06 08:40] VITALS: BP 87/54; PULSE 71; RESP 17; TEMP 36.6; O2SAT 98
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
[2021-11-06 13:26] VITALS: BMI 27.5
[2021-11-06] MEDS: LORazepam 1 MG TABLET PO ×2 (13:45→20:40)
[2021-11-06 20:35] VITALS: BP 95/66; PULSE 120; RESP 17; TEMP 36.2; O2SAT 97
[2021-11-06] MEDS: Acetaminophen 325 MG TABLET 650 MG PO (20:40)
[2021-11-06] MEDS: hydrOXYzine HCL 25 MG TABLET PO (20:40)
[2021-11-06] MEDS: traZODone HCL 100 MG TABLET PO (20:40)
[2021-11-06] MEDS: cloZAPine 25 MG TABLET 75 MG PO (20:40)
[2021-11-06] MEDS: Propranolol HCL 10 MG TABLET PO (20:41)
[2021-11-07 08:37] LABS: Neut%MD 47.4 %; Neutrophils Absolute Auto 2.7 x10*3/uL (2.0-8.3); WBCANC 5.7 X10*3/uL
[2021-11-07 08:57] VITALS: BP 81/50; PULSE 76; RESP 15; TEMP 36.7; O2SAT 97
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
[2021-11-07 12:59] VITALS: BP 100/60; PULSE 92
[2021-11-07] MEDS: LORazepam 1 MG TABLET PO ×2 (13:47→20:19)
[2021-11-07 18:00] VITALS: BP 107/63; PULSE 110; TEMP 36.7; O2SAT 96
[2021-11-07] MEDS: cloZAPine 100 MG TABLET PO (20:19)
[2021-11-07] MEDS: Acetaminophen 325 MG TABLET 650 MG PO (20:19)
[2021-11-07] MEDS: Lithium Carbonate ER 300 MG TABLET.ER PO (20:20)
[2021-11-07] MEDS: hydrOXYzine HCL 25 MG TABLET PO (20:20)
[2021-11-07] MEDS: traZODone HCL 100 MG TABLET PO (20:20)
[2021-11-08 08:43] VITALS: BP 93/53; PULSE 69; RESP 16; TEMP 36.8; O2SAT 97
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
[2021-11-08] MEDS: LORazepam 1 MG TABLET PO ×2 (14:17→20:52)
[2021-11-08] MEDS: Acetaminophen 325 MG TABLET 650 MG PO (20:51)
[2021-11-08] MEDS: Lithium Carbonate ER 300 MG TABLET.ER PO (20:52)
[2021-11-08] MEDS: hydrOXYzine HCL 25 MG TABLET PO (20:52)
[2021-11-08] MEDS: traZODone HCL 100 MG TABLET PO (20:52)
[2021-11-08] MEDS: cloZAPine 100 MG TABLET PO (20:52)
[2021-11-08 20:55] VITALS: BP 108/65; PULSE 107; TEMP 36.7; O2SAT 97
[2021-11-09 08:00] VITALS: BP 93/57; PULSE 80; RESP 16; TEMP 36.2; O2SAT 95
[2021-11-09] MEDS: LORazepam 1 MG TABLET PO ×2 (12:41→20:33)
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
[2021-11-09 20:25] VITALS: BP 110/76; PULSE 130; RESP 18; TEMP 36.2; O2SAT 96
[2021-11-09] MEDS: cloZAPine 100 MG TABLET PO (20:33)
[2021-11-09] MEDS: traZODone HCL 100 MG TABLET PO (20:33)
[2021-11-09] MEDS: hydrOXYzine HCL 25 MG TABLET PO (20:34)
[2021-11-09] MEDS: Acetaminophen 325 MG TABLET 650 MG PO (20:34)
[2021-11-09] MEDS: Lithium Carbonate ER 300 MG TABLET.ER PO (20:34)
[2021-11-09] MEDS: Propranolol HCL 10 MG TABLET PO (20:34)
--- NOTE | 2021-11-10 | EEG_ITS ---
Waking background activity consists of a moderate voltage of 8 hertz alpha frequencies seen from the posterior quadrants intermixed with low voltage fast frequencies anteriorly. Photic stimulation is without activation. Hyperventilation was omitted. No focal, lateralizing, or paroxysmal discharges seen. IMPRESSION: This waking EEG is considered within normal limits. MD JAZMIN Mcmullen/PILAR / [id number]
[2021-11-10 08:10] VITALS: BP 107/64; PULSE 80; RESP 17; TEMP 36.7; O2SAT 97
[2021-11-10] MEDS: LORazepam 1 MG TABLET PO ×2 (08:11→20:53)
[2021-11-10] MEDS: Propranolol HCL 10 MG TABLET PO ×2 (08:11→20:53)
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
[2021-11-10 16:45] LABS: Alanine Aminotransferase 27 U/L (0-31); Alkaline Phosphatase 70 U/L (39-117); Anion Gap 12 (12-20); Aspartate Amino Transferase 18 U/L (5-31); Bilirubin Total 0.5 mg/dL (0.0-1.0); Blood Urea Nitrogen 11 mg/dL (9-16); Calcium 9.4 mg/dL (8.4-10.2); Carbon Dioxide 26 mmol/L (22-29); Chloride 107 mmol/L (96-108); Creatinine Clr Calc Pharmacy 107.6; Estimated Glomerular Filt Rate > 60; Glucose Random 131 mg/dL (60-115); Potassium 4.4 mmol/L (3.3-5.1); Rheumatoid Factor < 15.0 IU/mL (<15.0); Sodium 141 mmol/L (135-145); Total Protein 6.5 g/dL (6.5-8.0)
[2021-11-10 17:01] LABS: Syphilis Screen Nonreactive (Nonreactive)
[2021-11-10 20:48] VITALS: BP 108/73; PULSE 117; RESP 18; TEMP 36.6; O2SAT 96
[2021-11-10] MEDS: traZODone HCL 100 MG TABLET PO (20:53)
[2021-11-10] MEDS: Lithium Carbonate ER 300 MG TABLET.ER PO (20:53)
[2021-11-10] MEDS: hydrOXYzine HCL 25 MG TABLET PO (20:53)
[2021-11-10] MEDS: Acetaminophen 325 MG TABLET 650 MG PO (20:53)
[2021-11-10] MEDS: cloZAPine 100 MG TABLET PO (20:53)
[2021-11-11 04:51] LABS: HIV AB/AG Nonreactive (Nonreactive); HIV Num 1 0.08 S/CO (0.00-0.99)
[2021-11-11 08:00] VITALS: BP 107/72; PULSE 92; RESP 16; TEMP 36.3; O2SAT 98
[2021-11-11] MEDS: Propranolol HCL 10 MG TABLET PO ×2 (08:51→20:21)
[2021-11-11] MEDS: LORazepam 1 MG TABLET PO ×2 (08:55→20:20)
[2021-11-11 11:41] LABS: Neut%MD 65.2 %; WBCANC 9.2 X10*3/uL
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
[2021-11-11 20:00] VITALS: BP 108/70; PULSE 114; RESP 16; TEMP 36.8; O2SAT 97
[2021-11-11] MEDS: Lithium Carbonate ER 300 MG TABLET.ER PO (20:20)
[2021-11-11] MEDS: cloZAPine 100 MG TABLET PO (20:21)
[2021-11-11] MEDS: traZODone HCL 100 MG TABLET PO (20:34)
[2021-11-11] MEDS: Acetaminophen 325 MG TABLET 650 MG PO (20:34)
[2021-11-11] MEDS: hydrOXYzine HCL 25 MG TABLET PO (20:34)
[2021-11-12 04:57] LABS: Lyme Abs Screen <0.90 index
[2021-11-12 08:30] VITALS: BP 88/54; PULSE 97; RESP 16; TEMP 36.6; O2SAT 97
[2021-11-12] MEDS: LORazepam 1 MG TABLET PO ×2 (11:16→20:34)
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
[2021-11-12 20:26] VITALS: BP 98/68; PULSE 102; TEMP 36.8; O2SAT 98
[2021-11-12 20:28] VITALS: BP 94/72; PULSE 121; O2SAT 98
[2021-11-12] MEDS: Acetaminophen 325 MG TABLET 650 MG PO (20:33)
[2021-11-12] MEDS: hydrOXYzine HCL 25 MG TABLET PO (20:34)
[2021-11-12] MEDS: Lithium Carbonate ER 300 MG TABLET.ER PO (20:34)
[2021-11-12] MEDS: cloZAPine 100 MG TABLET PO (20:34)
[2021-11-12] MEDS: traZODone HCL 100 MG TABLET PO (20:34)
[2021-11-13 07:00] VITALS: BMI 27.8
[2021-11-13] MEDS: cloZAPine 25 MG TABLET PO (08:21)
[2021-11-13 08:48] VITALS: BP 97/58; PULSE 75; RESP 14; TEMP 36.5; O2SAT 95
[2021-11-13] MEDS: LORazepam 1 MG TABLET PO ×2 (09:08→20:43)
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
[2021-11-13 18:26] LABS: Lithium 0.16 mmol/L (0.60-1.20)
[2021-11-13] MEDS: Acetaminophen 325 MG TABLET 650 MG PO (20:17)
[2021-11-13] MEDS: cloZAPine 100 MG TABLET PO (20:18)
[2021-11-13] MEDS: hydrOXYzine HCL 25 MG TABLET PO (20:18)
[2021-11-13] MEDS: Lithium Carbonate ER 300 MG TABLET.ER PO (20:18)
[2021-11-13] MEDS: traZODone HCL 100 MG TABLET PO (20:18)
[2021-11-13 20:22] VITALS: BP 131/60; PULSE 120; TEMP 36.5; O2SAT 95
[2021-11-14] MEDS: cloZAPine 25 MG TABLET PO (09:06)
[2021-11-14] MEDS: LORazepam 1 MG TABLET PO ×2 (09:09→20:20)
[2021-11-14 10:13] VITALS: BP 85/53; PULSE 80; RESP 17; TEMP 36.6; O2SAT 98
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
[2021-11-14] MEDS: Acetaminophen 325 MG TABLET 650 MG PO (20:19)
[2021-11-14] MEDS: Lithium Carbonate ER 300 MG TABLET.ER PO (20:19)
[2021-11-14] MEDS: traZODone HCL 100 MG TABLET PO (20:20)
[2021-11-14] MEDS: hydrOXYzine HCL 25 MG TABLET PO (20:20)
[2021-11-14] MEDS: cloZAPine 100 MG TABLET PO (20:20)
[2021-11-14 20:40] VITALS: BP 119/66; PULSE 130; RESP 20; TEMP 36.4; O2SAT 96
--- NOTE | 2021-11-14 22:44 | PC.NURSE ---
Pt found to have an abrasion on each middle toe, bilaterally. Cleansed both, applied bacitracin and applied bandaids.
[2021-11-15 09:11] VITALS: BP 104/66; PULSE 73; RESP 20; TEMP 36.2; O2SAT 97
[2021-11-15] MEDS: cloZAPine 25 MG TABLET 50 MG PO (09:18)
[2021-11-15] MEDS: LORazepam 1 MG TABLET PO ×2 (09:29→21:19)
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
[2021-11-15 21:10] VITALS: BP 106/77; PULSE 120; RESP 18; TEMP 36.8; O2SAT 98
[2021-11-15] MEDS: hydrOXYzine HCL 25 MG TABLET PO (21:18)
[2021-11-15] MEDS: Lithium Carbonate ER 300 MG TABLET.ER PO (21:18)
[2021-11-15] MEDS: traZODone HCL 100 MG TABLET PO (21:18)
[2021-11-15] MEDS: cloZAPine 100 MG TABLET PO (21:19)
[2021-11-15] MEDS: Acetaminophen 325 MG TABLET 650 MG PO (21:19)
[2021-11-16 08:40] VITALS: BP 120/74; PULSE 88; RESP 20; TEMP 36.4; O2SAT 98
[2021-11-16] MEDS: LORazepam 1 MG TABLET PO ×2 (09:10→21:10)
[2021-11-16] MEDS: cloZAPine 25 MG TABLET 50 MG PO (09:10)
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
[2021-11-16 21:05] VITALS: BP 100/74; PULSE 116; RESP 18; TEMP 36.1; O2SAT 98
[2021-11-16] MEDS: traZODone HCL 100 MG TABLET PO (21:10)
[2021-11-16] MEDS: Acetaminophen 325 MG TABLET 650 MG PO (21:10)
[2021-11-16] MEDS: Lithium Carbonate ER 450 MG TABLET.ER PO (21:10)
[2021-11-16] MEDS: cloZAPine 100 MG TABLET PO (21:10)
[2021-11-16] MEDS: diphenhydrAMINE HCL 25 MG TABLET PO (22:59)
[2021-11-17] MEDS: cloZAPine 25 MG TABLET 50 MG PO (09:36)
[2021-11-17] MEDS: LORazepam 1 MG TABLET PO ×2 (09:36→20:26)
[2021-11-17 09:38] VITALS: BP 117/70; PULSE 106; RESP 20; TEMP 36.4; O2SAT 94
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
[2021-11-17] MEDS: Acetaminophen 325 MG TABLET 650 MG PO (20:25)
[2021-11-17] MEDS: traZODone HCL 100 MG TABLET PO (20:26)
[2021-11-17] MEDS: diphenhydrAMINE HCL 25 MG TABLET PO (20:26)
[2021-11-17] MEDS: cloZAPine 100 MG TABLET PO (20:26)
[2021-11-17] MEDS: Lithium Carbonate ER 450 MG TABLET.ER PO (20:26)
[2021-11-17 20:37] VITALS: BP 132/76; PULSE 120; TEMP 36.6; O2SAT 97
[2021-11-18 08:00] VITALS: BP 97/58; PULSE 85; RESP 16; TEMP 36.6; O2SAT 96
[2021-11-18] MEDS: cloZAPine 25 MG TABLET 50 MG PO (08:29)
[2021-11-18 08:47] LABS: Neut%MD 55.4 %; Neutrophils Absolute Auto 3.7 x10*3/uL (2.0-8.3); WBCANC 6.7 X10*3/uL
[2021-11-18] MEDS: Acetaminophen 325 MG TABLET 650 MG PO ×2 (09:31→20:17)
[2021-11-18] MEDS: LORazepam 1 MG TABLET PO ×2 (09:33→20:17)
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
[2021-11-18 18:00] VITALS: BP 101/72; PULSE 92; RESP 18; TEMP 36.6; O2SAT 97
[2021-11-18] MEDS: diphenhydrAMINE HCL 25 MG TABLET PO (20:16)
[2021-11-18] MEDS: cloZAPine 100 MG TABLET PO (20:16)
[2021-11-18] MEDS: Lithium Carbonate ER 450 MG TABLET.ER PO (20:17)
[2021-11-18] MEDS: traZODone HCL 100 MG TABLET PO (20:17)
[2021-11-18 20:21] VITALS: BP 109/74; PULSE 99; TEMP 36.2; O2SAT 97
[2021-11-19] MEDS: cloZAPine 25 MG TABLET 50 MG PO (08:50)
[2021-11-19 08:51] VITALS: BP 106/57; RESP 16; TEMP 36.4; O2SAT 97
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
[2021-11-19] MEDS: LORazepam 1 MG TABLET PO (20:55)
[2021-11-19] MEDS: cloZAPine 100 MG TABLET PO (20:55)
[2021-11-19] MEDS: Lithium Carbonate ER 450 MG TABLET.ER PO (20:55)
[2021-11-19 21:06] VITALS: BP 120/55; PULSE 130; RESP 18; TEMP 36.6; O2SAT 96
[2021-11-19] MEDS: Acetaminophen 325 MG TABLET 650 MG PO (21:19)
[2021-11-19] MEDS: diphenhydrAMINE HCL 25 MG TABLET PO (21:20)
[2021-11-19] MEDS: traZODone HCL 100 MG TABLET PO (21:20)
[2021-11-20 08:21] VITALS: BP 95/56; PULSE 70; RESP 14; TEMP 36.4; O2SAT 98
[2021-11-20] MEDS: cloZAPine 25 MG TABLET 50 MG PO (08:23)
[2021-11-20] MEDS: LORazepam 1 MG TABLET PO ×2 (08:23→20:41)
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
[2021-11-20 20:35] VITALS: BP 108/81; PULSE 131; RESP 18; TEMP 36.2; O2SAT 97
[2021-11-20] MEDS: Acetaminophen 325 MG TABLET 650 MG PO (20:41)
[2021-11-20] MEDS: diphenhydrAMINE HCL 25 MG TABLET PO (20:41)
[2021-11-20] MEDS: Lithium Carbonate ER 450 MG TABLET.ER PO (20:41)
[2021-11-20] MEDS: traZODone HCL 100 MG TABLET PO (20:41)
[2021-11-20] MEDS: cloZAPine 100 MG TABLET PO (20:41)
[2021-11-21] MEDS: cloZAPine 25 MG TABLET 50 MG PO (08:51)
[2021-11-21] MEDS: LORazepam 1 MG TABLET PO ×2 (08:52→20:14)
[2021-11-21 09:00] VITALS: BP 107/82; PULSE 96; RESP 18; TEMP 36.4; O2SAT 96
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
--- NOTE | 2021-11-21 14:14 | PC.NURSE ---
PPD planted right forearm Lot [id number] exp 16 Jan 2023 without difficulty.
--- NOTE | 2021-11-21 19:12 | PC.NURSE ---
Patient declined to shower or change linens throughout the day.
[2021-11-21 20:11] VITALS: BP 139/69; PULSE 100; TEMP 36.4; O2SAT 100
[2021-11-21] MEDS: cloZAPine 100 MG TABLET PO (20:13)
[2021-11-21] MEDS: diphenhydrAMINE HCL 25 MG TABLET PO (20:13)
[2021-11-21] MEDS: Lithium Carbonate ER 450 MG TABLET.ER PO (20:13)
[2021-11-21] MEDS: Acetaminophen 325 MG TABLET 650 MG PO (20:13)
[2021-11-21] MEDS: traZODone HCL 100 MG TABLET PO (20:14)
[2021-11-22 06:00] VITALS: BP 92/50; PULSE 111; RESP 16; TEMP 36.6; O2SAT 100
[2021-11-22] MEDS: Acetaminophen 325 MG TABLET 650 MG PO ×2 (08:38→20:38)
[2021-11-22] MEDS: cloZAPine 25 MG TABLET 50 MG PO (08:39)
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
[2021-11-22 20:28] VITALS: PULSE 120; TEMP 36.6; O2SAT 96
[2021-11-22 20:30] VITALS: BP 111/75
[2021-11-22] MEDS: traZODone HCL 100 MG TABLET PO (20:38)
[2021-11-22] MEDS: diphenhydrAMINE HCL 25 MG TABLET PO (20:38)
[2021-11-22] MEDS: cloZAPine 100 MG TABLET PO (20:38)
[2021-11-22] MEDS: LORazepam 1 MG TABLET PO (20:38)
[2021-11-22] MEDS: Lithium Carbonate ER 450 MG TABLET.ER PO (20:39)
[2021-11-23 08:50] VITALS: BP 81/51; PULSE 95; RESP 16; TEMP 36.2; O2SAT 96
[2021-11-23] MEDS: cloZAPine 25 MG TABLET 50 MG PO (08:51)
[2021-11-23] MEDS: LORazepam 1 MG TABLET PO ×2 (10:03→20:41)
[2021-11-23] MEDS: Acetaminophen 325 MG TABLET 650 MG PO ×2 (10:03→20:41)
[2021-11-23 11:54] LABS: Influenza A PCR NEGATIVE (Negative); Influenza B PCR NEGATIVE (Negative); Resp Syncy Virus RNA Qual PCR NEGATIVE (Negative); SARS COV2 PCR INHOUSE NEGATIVE (Negative)
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
--- NOTE | 2021-11-23 15:16 | PC.NURSE ---
PPD negative. 0mm. No induration.
[2021-11-23 16:59] LABS: Lithium 0.22 mmol/L (0.60-1.20)
[2021-11-23 17:26] LABS: TSH reflex Free T4 1.24 uIU/mL (0.32-4.0)
[2021-11-23 18:00] VITALS: BP 118/68; PULSE 108; RESP 18; TEMP 36.6; O2SAT 97
[2021-11-23] MEDS: Lithium Carbonate ER 450 MG TABLET.ER PO (20:41)
[2021-11-23] MEDS: traZODone HCL 100 MG TABLET PO (20:41)
[2021-11-23] MEDS: cloZAPine 100 MG TABLET PO (20:41)
[2021-11-23] MEDS: diphenhydrAMINE HCL 25 MG TABLET PO (20:41)
[2021-11-24 08:47] VITALS: BP 123/60; PULSE 84; RESP 18; TEMP 36.6; O2SAT 98
[2021-11-24] MEDS: cloZAPine 25 MG TABLET 50 MG PO (08:57)
[2021-11-24] MEDS: LORazepam 1 MG TABLET PO ×2 (09:04→20:37)
[2021-11-24] MEDS: Acetaminophen 325 MG TABLET 650 MG PO ×2 (09:04→20:37)
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
--- NOTE | 2021-11-24 15:49 | PC.NURSE ---
Patient had supervised shower, linens changed, clothes laundered.
[2021-11-24 18:00] VITALS: BP 118/64; PULSE 118; RESP 18; TEMP 36.7; O2SAT 97
[2021-11-24] MEDS: cloZAPine 100 MG TABLET PO (20:37)
[2021-11-24] MEDS: diphenhydrAMINE HCL 25 MG TABLET PO (20:37)
[2021-11-24] MEDS: Lithium Carbonate ER 450 MG TABLET.ER PO (20:37)
[2021-11-24] MEDS: traZODone HCL 100 MG TABLET PO (20:38)
[2021-11-25 08:54] LABS: COVID-19 Test Negative (Negative); IDNOW Serial# 55D5AD1C
[2021-11-25 08:55] LABS: Neut%MD 55.7 %; Neutrophils Absolute Auto 3.8 x10*3/uL (2.0-8.3); WBCANC 6.9 X10*3/uL
[2021-11-25] MEDS: cloZAPine 25 MG TABLET 50 MG PO (09:03)
[2021-11-25 09:11] VITALS: BP 121/83; PULSE 107; RESP 18; TEMP 35.9; O2SAT 98
[2021-11-25] MEDS: LORazepam 1 MG TABLET PO (10:16)
--- NOTE | 2021-11-25 11:24 | PC.NURSE ---
Patient alert, oriented x3. Denies SI/HI, denies AH/VH. Patient aware of upcoming discharge, denies having any anxiety related to transfer. Reviewed discharge instructions w/ patient- no concerns or questions reported.
--- NOTE | 2021-11-25 11:44 | PC.NURSE ---
EMS in to transfer patient to . Patient cooperative, and aware of discharge. No concerns reported.
--- NOTE | 2021-11-25 12:07 | PC.NURSE ---
Report given to JOAQUÍN Talavera at [facility].
[2021-11-25 15:36] LABS: Clozapine (Clozaril) 320 mcg/L; Norclozapine 184 mcg/L (25-400)
== END 2021-11-25 11:45 | disposition home or self-care (01) | DRG 750 ==
LOC: HO.ED 09-11 00:31 → HO.PADLT16 09-11 16:56
PROVIDERS: Physician Assistant; Registered Nurse; Admitting Provider Psychiatry & Neurology Psychiatry; Emergency Provider Internal Medicine; PCP Internal Medicine; Visit Provider Social Worker
DX: F25.0 Schizoaffective disorder, bipolar type (principal); Z20.822 Contact with and (suspected) exposure to COVID-19; Z88.0 Allergy status to penicillin; Z88.8 Allergy status to other drugs, medicaments and biological substances; Z79.899 Other long term (current) drug therapy
CPT/HCPCS: 0241U; 36415; 70450; 73620; 80053; 80061; 80159; 80178; 80307; 81003; 81025; 82607; 82746; 83036; 84443; 85025; 85048; 85652; 86038; 86039; 86147; 86431; 86617; 86618; 86780; 87389; 87635; 93005; 95816; 99285; J2060; Q0163

== ENCOUNTER 2023-02-12 11:13 | Outpatient (AMB) | payer OTHER, SELFPAY ==
--- NOTE | 2023-02-12 11:14 | A.OFFPC_ITS ---
Vital Signs 02/12/23 11:16 Height 5 ft 3 in Weight 182 lb BMI 32.2 BP 126/70 Blood Pressure Location Lt brachial Position Sitting Respiration 12 Pulse 109 H Pulse Source Pulse Oximeter Temp 98.2 F Temp Source Temporal Artery Scan Pulse Oximetry (%) 97 Oxygen Delivery Method Room Air Intake Visit Reasons: New patient- Med review Intake Note: Patient needs 2 new scripts for Tylenol 650MG and Claritin 10MG. Prospecting Driller Required: No Accompanied by: Self / Same As Patient Allergies penicillin V Allergy (Unknown, Verified 02/12/23 11:50) hives paroxetine [Paxil] Adverse Reaction (Unknown, Verified 02/12/23 11:50) anorgasmia Medication List - Last Reconciled 02/12/23 by Sandro Price CNP acetaminophen ER (Tylenol 8 Hour) 650 mg PO Q4H clozapine 50 mg (2 x 25 mg) PO DAILY clozapine 100 mg PO BEDTIME clozapine 300 mg PO BEDTIME dextroamphetamine-amphetamine 25 mg ER (Adderall XR) 25 mg PO BID fluoxetine (Prozac) 80 mg PO BEDTIME lamotrigine ER (Lamictal XR) 300 mg PO DAILY lithium carbonate 600 mg PO BEDTIME lithium carbonate ER 450 mg PO BEDTIME lithium carbonate ER 450 mg PO DAILY loratadine (Claritin) 10 mg PO DAILY Tobacco use date assessed: 02/12/23 Dental Screening Dental Screen Date: 02/12/23 Did you have a dental visit in the last 12 months?: No Did you have a dental problem in the last 6 months where you did not have access to dental care?: No HPI HPI Comments History of Present Illness Details 32-year-old female presents to [facility] She lives in [facility]. She was accompanied by the site technician She is a transfer by Dr. Oviedo; she notes that she was last evaluated in a year ago. She does not recall her last routine blood work She has history of ADD, schizoaffective disorder, bipolar type, psychosis, psoriasis She is followed by a psychiatrist who manages her psychotrophic medications She notes that she has been taking her medications as prescribed She states she uses an OTC shampoo for her psoriasis with significant improvement No acute symptoms today She notes she is not sexually active She notes that her last pap smear test was 3 years ago: normal [facility] Medical History (Updated 02/12/23 @ 12:29 by Sandro Price CNP) Generalized headaches Psoriasis Surgical History (Updated 02/12/23 @ 11:42 by Bess Gonzales MA) Hx of tonsillectomy Family History (Updated 02/12/23 @ 11:44 by Bess Gonzales MA) Father No problems noted. Mother Asthma Maternal Grandfather CVD (cardiovascular disease) Brother No problems noted. Brother No problems noted. Brother No problems noted. Brother No problems noted. Social History (Updated 02/12/23 @ 11:39 by Bess Gonzales MA) Household Members: Family Caregiver staying overnight: Yes Housing: Other Housing Other:: [facility] Are you a primary health care specialist to a significant other at home: No Do you presently have visiting nurse or other home services: No 75 years or older and lives alone: No Unable to assess alcohol history related to: Refusing to respond Alcohol intake: never Patient Tobacco Use Status: Former Tobacco user e-Cigarette/Vaping Use: Never Used Special kaylan needs: No Agree to transfusion: Yes service: No Current occupational status: disabled Sexual orientation: Straight/Heterosexual Gender identity: Female Cognitive needs: No Hearing needs: No Vision needs: No Questionnaire PHQ-9 Over the last 2 weeks, how often have you been bothered by any of the following problems? 1. Little interest or pleasure in doing things: not at all 2. Feeling down, depressed, or hopeless: not at all 3. Trouble falling or staying asleep, or sleeping too much: not at all 4. Feeling tired or having little energy: several days 5. Poor appetite or overeating: several days 6. Feeling bad about yourself - or that you are a failure or have let yourself or your family down: not at all 7. Trouble concentrating on things, such as reading the newspaper or watching television: several days 8. Moving or speaking so slowly that other people could have noticed. Or the opposite - being so fidgety or restless that you have been moving around a lot more than usual: not at all 9. Thoughts that you would be better off or of hurting yourself in some way: not at all Total score: 3 Depression Screening Interpretation: Negative Source: Developed by Drs. Trey Contreras, Steve Miller and colleagues, with an educational jose from [employer]. Thrive Questionnaire Date Thrive assessed: 02/12/23 I am a: Patient What is your living situation today?: I have a steady place to live Within the past 12 months, did the food you bought not last and you didn't have the money to get more?: Often true Within the past 12 months, did you worry whether your food would run out before you got money to buy more?: Often true Do you have trouble paying for medicines?: No Do you have trouble getting transportation to medical appointments?: No Do you have trouble paying your heating and electricity bill?: No Do you have trouble taking care of your child, family member or friend?: No Do you have trouble with day-to-day activities such as bathing, preparing meals, shopping, managing finances, etc.?: No Are you currently unemployed and looking for a job?: I choose not to answer this question Are you interested in more education?: Yes Please select the resources that you would like help with: Food and Education AUDIT C Alcohol Use Questionnaire (AUDIT-C) 1. How often do you have a drink containing alcohol?: Never 3. How often do you have six or more drinks on one occasion?: Never Total Score: 0 TONYA-7 AMB Questionnaire TONYA-7 Date TONYA - 7 assessed: 02/12/23 Feeling nervous, anxious, or on edge: 0 = Not at all Not being able to stop or control worryin = Several days Worrying too much about different things: 1 = Several days Trouble relaxin = Several days Being so restless that it is hard to sit still: 0 = Not at all Becoming easily annoyed or irritable: 1 = Several days Feeling afraid as if something awful might happen: 0 = Not at all Total TONYA-7 score (0-4 normal; 5-9 mild; 10-14 moderate; 15-21 severe): 4 Source: Developed by Drs. Trey Contreras, Steve Miller and colleagues, with an educational jose from [employer]. Review of Systems Const Details: Denies chills, Denies fatigue, Denies fever(s), Denies headache(s) and Denies weakness HEENT Denies change in vision, Denies dizziness, Denies headache(s), Denies hearing loss, Denies nasal congestion, Denies sinus pain, Denies sinus pressure and Denies sore throat Card Denies chest pain, Denies lightheadedness, Denies dyspnea and Denies other (palpitations) Resp Denies cough, Denies dyspnea and Denies wheezing GI Denies abdominal pain, Denies melena, Denies hematochezia, Denies change in bowel habits, Denies dyspepsia and Denies nausea Denies hematuria and Denies dysuria Musc Denies abnormal gait, Denies myalgias, Denies arthralgias, Denies numbness and Denies tingling Skin/Breast Reports psoriasis, Denies unusual bruising and Denies wounds Neuro Denies abnormal gait, Denies dizziness, Denies headache(s), Denies memory loss, Denies numbness, Denies Sensory deficit (Neuro), Denies tingling and Denies weakness Psych Denies anxiety, Denies depression and Denies memory loss Endo Denies cold intolerance, Denies fatigue, Denies heat intolerance, Denies polydipsia and Denies polyuria Louis/Lymph Denies easy bleeding and Denies easy bruising Aller/Immun Denies wheezing Physical exam (Primary Care) Vital Signs: Last Vital Signs Temp 98.2 F 02/12/23 11:16 Pulse 109 H 02/12/23 11:16 Resp 12 02/12/23 11:16 BP 126/70 02/12/23 11:16 Pulse Ox 97 02/12/23 11:16 Oxygen Delivery Method Room Air 02/12/23 11:16 BMI result Body Mass Index 32.2 Tobacco/Smoking Status: Tobacco use Status Tobacco use date assessed 02/12/23 02/12/23 11:40 Patient Tobacco Use Status Former Tobacco user 02/12/23 11:40 e-Cigarette/Vaping Use Never Used 02/12/23 11:40 PHQ-9: PHQ-9 Score PHQ-9: Total score 3 02/12/23 11:46 Depression Screening Interpretation: Negative Thrive Assessment: Date of Thrive Assessment Date Thrive assessed 02/12/23 02/12/23 11:46 Const Other: General: no acute distress, well developed, alert and awake Nutritional Appearance: well nourished Orientation/consciousness: patient oriented x3 HENMT Head: Yes normocephalic and Yes atraumatic Ears: hearing grossly normal bilaterally and TM's normal bilaterally General nose exam: Normal external nose present and Normal nares present Mouth: Normal oral and palatal mucosa present and moist mucous membranes Teeth and gingiva: dentition normal Throat: Yes oropharynx normal Eyes Pupils: Equal, round and reactive pupils present and Pupil accommodation reflex normal EOM: EOMs intact bilaterally Neck Neck: Yes normal visual inspection, Yes no lymphadenopathy and Yes trachea midline Thyroid: Thyroid normal Carotids: no bruits Lymphatic: no lymphadenopathy noted Chest Chest palpation & inspection: normal inspection of the chest Resp Effort & Inspection: normal respiratory effort Auscultation: clear to auscultation bilaterally Cardio Rate: regular rate Rhythm: regular rhythm Heart sounds: S1 normal heart sound present, S2 normal heart sound present, no gallops, no murmurs and no rubs Bruits: no abdominal aortic bruits and no carotid bruits GI Palpation (GI): No Abdominal aortic bruit present, Soft to palpation, nontender, No hepatosplenomegaly present and No Rebound tenderness present Auscultation: normal bowel sounds General: Yes no CVA tenderness Back/Spine/Pelvis Back: no CVA tenderness Cervical Spine: cervical ROM normal and No Cervical spine tenderness Thoracic/Lumbar Spine: thoraco-lumbar ROM normal, No pain with thoraco-lumbar ROM, No thoracic spinal tenderness and No lumbar spinal tenderness Skin General: warm and dry. Normal skin color. Normal skin turgor Lesions: no lesions Rashes: Dry, scaly patches on a red base noted on anterior and posterior hairline, significant with psoriasis Trauma: no lacerations or abrasions Wounds: no wounds Nails: normal Neuro General: patient oriented x3, gait normal and CN's II-XI intact bilaterally Cranial nerves: Yes Equal, round and reactive pupils present Cognition (Neuro): normal cognition Gait exam (Neuro): Normal gait present Motor exam (neuro): 5/5 motor strength present throughout Sensory Exam: No Sensory deficit (Neuro) Deep tendon reflexes (DTR's): Right patellar reflex intensity grade: 2+ and Left patellar reflex intensity grade: 2+ Extrem General: Yes normal to inspection, No edema and No calf tenderness Psych Appearance: grossly normal Affect: normal affect Attitude: cooperative Thought process: Normal thought process present Assessment and Plan Assessment & Plan (1) Normal physical examination, routine: Code(s): Z00.00 - Encounter for general adult medical examination without abnormal findings Plan: No significant physical restrictions or limitations noted Advised to get fasting blood work done before next visit Follow-up in 1 month for labs review Return sooner with symptoms or concerns Verbalized understanding and agreed with treatment plan. (2) Schizoaffective disorder, bipolar type: Code(s): F25.0 - Schizoaffective disorder, bipolar type Plan: Reports history of schizoaffective disorder and ADD No acute symptoms PHQ-9 and TONYA-7 scores are normal She is followed by a psychiatrist who manages her psychotrophic medications Continue to take medications as prescribed Continue follow-up with psychiatrist as planned Return with new or worsening symptoms Verbalized understanding and agreed with treatment plan. (3) ADD (attention deficit disorder): Code(s): F98.8 - Other specified behavioral and emotional disorders with onset usually occurring in childhood and adolescence Plan: As above (4) Psoriasis: Code(s): L40.9 - Psoriasis, unspecified Plan: Reports psoriasis for which she uses an OTC shampoo for her psoriasis with significant improvement Dry, scaly patches on a red base noted on anterior and posterior hairline, significant with psoriasis Continue with current regimen as needed Follow-up with new or worsening signs and symptoms Verbalized understanding and agreed with treatment plan. (5) Laboratory tests ordered as part of a complete physical exam (CPE): Code(s): Z00.00 - Encounter for general adult medical examination without abnormal findings Plan: Fasting labs ordered as part of a complete physical exam. Advised to fast for at least 10 hours before getting labs drawn. May drink water Verbalized understanding and agreed with treatment plan. (6) Pap smear for cervical cancer screening: Code(s): Z12.4 - Encounter for screening for malignant neoplasm of cervix Plan: She notes that her last pap smear test was 3 years ago: normal Referred to gynecology Orders: Orders Comprehensive [place]. Panel Fast Today Z00.00 - Encounter for general adult medical examination without abnormal findings Lipid Panel Today Z00.00 - Encounter for general adult medical examination without abnormal findings TSH reflex Free T4 Today Z00.00 - Encounter for general adult medical examination without abnormal findings Complete Blood Count Auto Diff Today Z00.00 - Encounter for general adult medical examination without abnormal findings UA CC w/rflx Micro + Cult Today Z00.00 - Encounter for general adult medical examination without abnormal findings Referrals CONTENT CURATOR Referral Z12.4 - Encounter for screening for malignant neoplasm of cervix Medications: New acetaminophen ER (Tylenol 8 Hour) 650 mg PO Q4H 60 tabs 4RF loratadine (Claritin) 10 mg PO DAILY 90 tabs 1RF 90 days Coding Level of Care Code Est Pt Prev Care 18-39y(01905) Diagnoses Normal physical examination, routine Z00.00 Schizoaffective disorder, bipolar type F25.0 ADD (attention deficit disorder) F98.8 Psoriasis L40.9 Laboratory tests ordered as part of a complete physical exam (CPE) Z00.00 Pap smear for cervical cancer screening Z12.4
[2023-02-12 11:16] VITALS: BP 126/70; PULSE 109; RESP 12; TEMP 36.8; O2SAT 97; BMI 32.2
== END 2023-02-12 12:24 | disposition home or self-care (01) ==
PROVIDERS: PCP Nurse Practitioner Family; Visit Provider Nurse Practitioner Family
DX: Z00.00 Encounter for general adult medical examination without abnormal findings (principal); F25.0 Schizoaffective disorder, bipolar type; F98.8 Other specified behavioral and emotional disorders with onset usually occurring in childhood and adolescence; L40.9 Psoriasis, unspecified; Z12.4 Encounter for screening for malignant neoplasm of cervix
CPT/HCPCS: 99395

== ENCOUNTER 2023-03-25 11:36 | Outpatient (AMB) | payer OTHER, SELFPAY ==
[2023-03-25 11:41] VITALS: BP 102/64; PULSE 102; RESP 12; TEMP 36.4; O2SAT 98; BMI 32.4
--- NOTE | 2023-03-25 11:41 | MHC.PC.OV ---
Vital Signs 03/25/23 11:41 Height 5 ft 3 in Weight 183 lb BMI 32.4 BP 102/64 Blood Pressure Location Lt brachial Position Sitting Respiration 12 Pulse 102 H Pulse Source Pulse Oximeter Temp 97.5 F Temp Source Temporal Artery Scan Pulse Oximetry (%) 98 Oxygen Delivery Method Room Air Intake Visit Reasons: 1 mos labs review [place] Required: No Accompanied by: Self / Same As Patient Allergies penicillin V Allergy (Unknown, Verified 03/25/23 12:30) hives paroxetine [Paxil] Adverse Reaction (Unknown, Verified 03/25/23 12:30) anorgasmia Medication List - Last Reconciled 03/25/23 by Sandro Price CNP acetaminophen ER 650 mg PO DAILY clozapine 50 mg (2 x 25 mg) PO DAILY clozapine 100 mg PO BEDTIME clozapine 300 mg PO BEDTIME dextroamphetamine-amphetamine 25 mg ER (Adderall XR) 25 mg PO BID fluoxetine (Prozac) 80 mg PO BEDTIME lamotrigine ER (Lamictal XR) 300 mg PO DAILY lithium carbonate 600 mg PO BEDTIME lithium carbonate ER 450 mg PO DAILY loratadine (Claritin) 10 mg PO DAILY 90 days Tobacco use date assessed: 02/12/23 Dental Screening Dental Screen Date: 03/25/23 Did you have a dental visit in the last 12 months?: No Did you have a dental problem in the last 6 months where you did not have access to dental care?: No Was dental information given to patient?: Yes HPI HPI Comments History of Present Illness Details 32-year-old female presents recent blood work follow up. She resides in [facility]. She has history of ADD, schizoaffective disorder, bipolar type, and psychosis. She is followed by a psychiatrist every 3 months. Her psychiatrist manages her psychotropic medications. She has not followed by therapist. She notes that she has been taking her medications as prescribed. According to the staff, the company has therapist available if the patient decides to connect with one. Acute symptoms today. She has an appointment with application development intern for pap smear test in May. [facility] Medical History Generalized headaches Psoriasis Surgical History Hx of tonsillectomy Family History Father No problems noted. Mother Asthma Maternal Grandfather CVD (cardiovascular disease) Brother No problems noted. Brother No problems noted. Brother No problems noted. Brother No problems noted. Social History Household Members: Family Caregiver staying overnight: Yes Housing: Other Housing Other:: [facility] Are you a primary md do resident urgent care to a significant other at home: No Do you presently have visiting nurse or other home services: No 75 years or older and lives alone: No Unable to assess alcohol history related to: Refusing to respond Alcohol intake: never Patient Tobacco Use Status: Former Tobacco user e-Cigarette/Vaping Use: Never Used Special kaylan needs: No Agree to transfusion: Yes service: No Current occupational status: disabled Sexual orientation: Straight/Heterosexual Gender identity: Female Cognitive needs: No Hearing needs: No Vision needs: No Questionnaire Thrive Questionnaire Date Thrive assessed: 02/12/23 TONYA-7 AMB Questionnaire TONYA-7 Date TONYA - 7 assessed: 02/12/23 Source: Developed by Drs. Trey Contreras, Lyly Kang, Steve Canchola and colleagues, with an educational jose from [employer]. Review of Systems Const Details: Const Denies chills, Denies fatigue, Denies fever(s), Denies headache(s) and Denies weakness ENT Denies dizziness and Denies headache(s) Card Denies chest pain, Denies lightheadedness, Denies dyspnea and Denies other (Palpitations) Resp Denies cough, Denies dyspnea, Denies wheezing and Denies other ( shortness of breath) GI Denies abdominal pain, Denies melena, Denies hematochezia, Denies change in bowel habits, Denies dyspepsia and Denies nausea Denies hematuria and Denies dysuria Musc Denies abnormal gait, Denies myalgias, Denies arthralgias, Denies numbness and Denies tingling Skin/Breast Denies rash, Denies unusual bruising and Denies wounds Neuro Denies abnormal gait, Denies dizziness, Denies headache(s), Denies memory loss, Denies numbness, Denies Sensory deficit (Neuro), Denies tingling and Denies weakness Psych Denies anxiety, Denies depression, Denies memory loss Endo Denies cold intolerance, Denies fatigue, Denies heat intolerance, Denies polydipsia and Denies polyuria Aller/Immun Denies wheezing Physical exam (Primary Care) Vital Signs: Last Vital Signs Temp 97.5 F 03/25/23 11:41 Pulse 102 H 03/25/23 11:41 Resp 12 03/25/23 11:41 BP 102/64 03/25/23 11:41 Pulse Ox 98 03/25/23 11:41 Oxygen Delivery Method Room Air 03/25/23 11:41 BMI result Body Mass Index 32.4 Tobacco/Smoking Status: Tobacco use Status Tobacco use date assessed 02/12/23 03/25/23 11:49 Patient Tobacco Use Status Former Tobacco user 03/25/23 11:49 e-Cigarette/Vaping Use Never Used 03/25/23 11:49 Thrive Assessment: Date of Thrive Assessment Date Thrive assessed 02/12/23 03/25/23 11:49 Const Other: General: no acute distress and well developed Nutritional Appearance: well nourished Orientation/consciousness: patient oriented x3 HENMT Head: Yes normocephalic and Yes atraumatic Eyes General: appearance normal, both eyes and all related structures Pupils: Equal, round and reactive pupils present EOM: EOMs intact bilaterally Resp Effort & Inspection: normal respiratory effort Auscultation: clear to auscultation bilaterally Cardio Rate: regular rate Rhythm: regular rhythm Heart sounds: S1 normal heart sound present, S2 normal heart sound present, no gallops, no murmurs and no rubs GI Palpation (GI): No Abdominal aortic bruit present, Soft to palpation, nontender, No hepatosplenomegaly present and No Rebound tenderness present Auscultation: normal bowel sounds General: Yes no CVA tenderness Back/Spine/Pelvis Back: no CVA tenderness Cervical Spine: cervical ROM normal and No Cervical spine tenderness Thoracic/Lumbar Spine: thoraco-lumbar ROM normal, No pain with thoraco-lumbar ROM, No thoracic spinal tenderness and No lumbar spinal tenderness Extrem General: Yes normal to inspection, No edema and No calf tenderness Skin General: warm and dry. Normal skin color. Normal skin turgor Lesions: no lesions Rashes: no rashes Trauma: no lacerations or abrasions Wounds: no wounds Nails: normal Neuro General: patient oriented x3, gait normal and no focal neuro deficit Cranial nerves: Yes Equal, round and reactive pupils present Cognition (Neuro): normal cognition Gait exam (Neuro): Normal gait present Sensory Exam: No Sensory deficit (Neuro) Psych Appearance: grossly normal Affect: normal affect Attitude: cooperative Thought process: Normal thought process present Assessment and Plan Assessment & Plan (1) Laboratory tests ordered as part of a complete physical exam (CPE): Code(s): Z00.00 - Encounter for general adult medical examination without abnormal findings Plan: Recent lab results reviewed the patient. Results were unremarkable. Encouraged to continue to take her medications as prescribed Continue to follow up with Psychiatry as planned May connect with therapist as needed Advised to schedule her next physical for neck year Follow-up with OBGYN as planned Return with symptoms or concerns Verbalized understanding and agreed with treatment plan. Coding Level of Care Code Est Pt Level 3 (70156) Diagnoses Laboratory tests ordered as part of a complete physical exam (CPE) Z00.00
== END 2023-03-25 12:48 | disposition home or self-care (01) ==
PROVIDERS: PCP Nurse Practitioner Family; Visit Provider Nurse Practitioner Family
DX: F25.0 Schizoaffective disorder, bipolar type (principal); F98.8 Other specified behavioral and emotional disorders with onset usually occurring in childhood and adolescence
CPT/HCPCS: 99213

== ENCOUNTER 2024-04-13 09:59 | Outpatient (AMB) | payer OTHER, SELFPAY ==
--- NOTE | 2024-04-13 10:03 | MHC.PC.OV ---
Vital Signs 04/13/24 10:24 Height 5 ft 3 in Weight 186 lb 2 oz BMI 33.0 BP 114/70 Blood Pressure Location Rt brachial Position Sitting Respiration 16 Pulse 101 H Pulse Source Pulse Oximeter Temp 98.1 F Temp Source Oral Pulse Oximetry (%) 95 Oxygen Delivery Method Room Air Intake Visit Reasons: cpe with excersize clearance Intake Note: patient here for CPE with exercise clearance. 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 Is last menstrual period known: Yes Last menstrual period: 04/13/24 Post menopausal: No Patient : No Allergies penicillin V Allergy (Unknown, Verified 04/13/24 10:26) hives paroxetine [Paxil] Adverse Reaction (Unknown, Verified 04/13/24 10:26) anorgasmia Medication List - Last Reconciled 04/13/24 by Sandro Price CNP acetaminophen ER 650 mg PO DAILY clozapine 50 mg (2 x 25 mg) PO DAILY clozapine 100 mg PO BEDTIME clozapine 300 mg PO BEDTIME dextroamphetamine-amphetamine 25 mg ER (Adderall XR) 25 mg PO BID fluoxetine (Prozac) 80 mg PO BEDTIME lamotrigine ER (Lamictal XR) 300 mg PO DAILY lithium carbonate ER 450 mg PO DAILY loratadine (Claritin) 10 mg PO DAILY 90 days Tobacco use date assessed: 04/13/24 Dental Screening Dental Screen Date: 04/13/24 Did you have a dental visit in the last 12 months?: No Did you have a dental problem in the last 6 months where you did not have access to dental care?: No Was dental information given to patient?: Yes HPI HPI Comments History of Present Illness Details 33-year-old female presents for an extended physical exam She lives in a long-term and accompanied by long-term staff She has history of ADD, schizoaffective disorder, bipolar type, and psychosis She is followed by a psychiatrist every 3 months and therapist weekly at [facility]. Her psychiatrist manages her psychotropic medications She notes that she has been taking her medications as prescribed without adverse reactions She notes that she generally eats and sleeps well. She has not been exercising. She plans to join a wellness center for physical exercise and nutritional coaching once her physical exam is update She offers no complaints and denies acute symptoms at this time Former smoker. She does not drink alcohol. No recreational drugs Last Pap smear test is unknown. She was referred last January but did not go for her appointment She has not had an eye exam in several years r. [facility] Medical History Psoriasis Generalized headaches Surgical History Hx of tonsillectomy Family History Father No problems noted. Mother Asthma Maternal Grandfather CVD (cardiovascular disease) Brother No problems noted. Brother No problems noted. Brother No problems noted. Brother No problems noted. Social History Household Members: Family Housing: Other Housing Other:: [facility] Are you a primary restorative care technician to a significant other at home: No Do you presently have visiting nurse or other home services: No Unable to assess alcohol history related to: Refusing to respond Alcohol intake: never Patient Tobacco Use Status: Former Tobacco user e-Cigarette/Vaping Use: Never Used Special kaylan needs: No Agree to transfusion: Yes service: No Current occupational status: disabled Current occupational exposures/hazards: No Sexual orientation: Straight/Heterosexual Gender identity: Female Cognitive needs: No Hearing needs: No Vision needs: No Female Reproductive History Menstrual Date of last menstrual period: 04/13/24 Questionnaire PHQ-9 Over the last 2 weeks, how often have you been bothered by any of the following problems? 1. Little interest or pleasure in doing things: not at all 2. Feeling down, depressed, or hopeless: not at all 3. Trouble falling or staying asleep, or sleeping too much: not at all 4. Feeling tired or having little energy: several days 5. Poor appetite or overeating: not at all 6. Feeling bad about yourself - or that you are a failure or have let yourself or your family down: not at all 7. Trouble concentrating on things, such as reading the newspaper or watching television: several days 8. Moving or speaking so slowly that other people could have noticed. Or the opposite - being so fidgety or restless that you have been moving around a lot more than usual: several days 9. Thoughts that you would be better off or of hurting yourself in some way: not at all Total score: 3 Depression Screening Interpretation: Negative Depression Screening Done: Yes 35286 - PHQ-9 Billing: Yes Source: Developed by Drs. Trey Contreras, Lyly Kang, Steve Canchola and colleagues, with an educational jose from [employer]. Thrive Questionnaire Date Thrive assessed: 04/13/24 I am a: Patient What is your living situation today?: I have a steady place to live Within the past 12 months, did the food you bought not last and you didn't have the money to get more?: Sometimes True Within the past 12 months, did you worry whether your food would run out before you got money to buy more?: Sometimes True Do you have trouble paying for medicines?: No Do you have trouble getting transportation to medical appointments?: No Do you have trouble paying your heating and electricity bill?: No Do you have trouble taking care of your child, family member or friend?: No Do you have trouble with day-to-day activities such as bathing, preparing meals, shopping, managing finances, etc.?: No Are you currently unemployed and looking for a job?: No Are you interested in more education?: Yes Please select the resources that you would like help with: Education Currently or been in a relationship where the following occur: No concerns reported THRIVE Score: 2 AUDIT C Alcohol Use Questionnaire (AUDIT-C) 1. How often do you have a drink containing alcohol?: Never Total Score: 0 Score Reviewed/Action Taken: Yes TONYA-7 AMB Questionnaire TONYA-7 Date TONYA - 7 assessed: 04/13/24 Feeling nervous, anxious, or on edge: 0 = Not at all Not being able to stop or control worryin = Not at all Worrying too much about different things: 0 = Not at all Trouble relaxin = Several days Being so restless that it is hard to sit still: 0 = Not at all Becoming easily annoyed or irritable: 1 = Several days Feeling afraid as if something awful might happen: 0 = Not at all Total TONYA-7 score (0-4 normal; 5-9 mild; 10-14 moderate; 15-21 severe): 2 Source: Developed by Lyly Coronado Kurt Kroenke and colleagues, with an educational jose from [employer]. TONYA-7 Assessment Billing TONYA-7 Assessment Tool: TONYA-7 Assessment 53808 Review of Systems Const Details: Denies chills, Denies fatigue, Denies fever(s), Denies headache(s) and Denies weakness HEENT Denies change in vision, Denies dizziness, Denies headache(s), Denies hearing loss, Denies nasal congestion, Denies sinus pain, Denies sinus pressure and Denies sore throat Card Denies chest pain, Denies lightheadedness, Denies dyspnea and Denies other (palpitations) Resp Denies cough, Denies dyspnea and Denies wheezing GI Denies abdominal pain, Denies melena, Denies hematochezia, Denies change in bowel habits, Denies dyspepsia and Denies nausea Denies hematuria and Denies dysuria Musc Denies abnormal gait, Denies myalgias, Denies arthralgias, Denies numbness and Denies tingling Skin/Breast Denies rash, Denies unusual bruising and Denies wounds Neuro Denies abnormal gait, Denies dizziness, Denies headache(s), Denies memory loss, Denies numbness, Denies Sensory deficit (Neuro), Denies tingling and Denies weakness Psych Denies anxiety, Denies depression and Denies memory loss Endo Denies cold intolerance, Denies fatigue, Denies heat intolerance, Denies polydipsia and Denies polyuria Louis/Lymph Denies easy bleeding and Denies easy bruising Aller/Immun Denies wheezing Physical exam (Primary Care) Vital Signs: Last Vital Signs Temp 98.1 F 04/13/24 10:24 Pulse 101 H 04/13/24 10:24 Resp 16 04/13/24 10:24 BP 114/70 04/13/24 10:24 Pulse Ox 95 04/13/24 10:24 Oxygen Delivery Method Room Air 04/13/24 10:24 BMI result Body Mass Index 33.0 Tobacco/Smoking Status: Tobacco use Status Tobacco use date assessed 04/13/24 04/13/24 10:21 Patient Tobacco Use Status Former Tobacco user 04/13/24 10:06 e-Cigarette/Vaping Use Never Used 04/13/24 10:06 Depression Screening Interpretation: Negative Thrive Assessment: Date of Thrive Assessment Date Thrive assessed 02/12/23 04/13/24 10:06 Currently or been in a relationship where the following occur: No concerns reported Const Other: General: no acute distress, well developed, alert and awake Nutritional Appearance: well nourished Orientation/consciousness: patient oriented x3 [facility] Head: Yes normocephalic and Yes atraumatic Ears: hearing grossly normal bilaterally and TM's normal bilaterally General nose exam: Normal external nose present and Normal nares present Mouth: Normal oral and palatal mucosa present and moist mucous membranes Teeth and gingiva: dentition normal Throat: Yes oropharynx normal Eyes Pupils: Equal, round and reactive pupils present and Pupil accommodation reflex normal EOM: EOMs intact bilaterally Neck Neck: Yes normal visual inspection, Yes no lymphadenopathy and Yes trachea midline Thyroid: Thyroid normal Carotids: no bruits Lymphatic: no lymphadenopathy noted Chest Chest palpation & inspection: normal inspection of the chest Resp Effort & Inspection: normal respiratory effort Auscultation: clear to auscultation bilaterally Cardio Rate: regular rate Rhythm: regular rhythm Heart sounds: S1 normal heart sound present, S2 normal heart sound present, no gallops, no murmurs and no rubs Bruits: no abdominal aortic bruits and no carotid bruits GI Palpation (GI): No Abdominal aortic bruit present, Soft to palpation, nontender, No hepatosplenomegaly present and No Rebound tenderness present Auscultation: normal bowel sounds General: Yes no CVA tenderness Back/Spine/Pelvis Back: no CVA tenderness Cervical Spine: cervical ROM normal and No Cervical spine tenderness Thoracic/Lumbar Spine: thoraco-lumbar ROM normal, No pain with thoraco-lumbar ROM, No thoracic spinal tenderness and No lumbar spinal tenderness Skin General: warm and dry. Normal skin color. Normal skin turgor Lesions: no lesions Rashes: no rashes Trauma: no lacerations or abrasions Wounds: no wounds Nails: normal Neuro General: patient oriented x3, gait normal and CN's II-XI intact bilaterally Cranial nerves: Yes Equal, round and reactive pupils present Cognition (Neuro): normal cognition Gait exam (Neuro): Normal gait present Motor exam (neuro): 5/5 motor strength present throughout Sensory Exam: No Sensory deficit (Neuro) Deep tendon reflexes (DTR's): Right patellar reflex intensity grade: 2+ and Left patellar reflex intensity grade: 2+ Extrem General: Yes normal to inspection, No edema and No calf tenderness Psych Appearance: grossly normal Affect: normal affect Attitude: cooperative Thought process: Normal thought process present Assessment and Plan Assessment & Plan (1) Normal physical examination, routine: Code(s): Z00.00 - Encounter for general adult medical examination without abnormal findings Plan: No significant physical restrictions or limitations noted Continue current treatment regimen Continue to follow-up with therapist and psychiatrist as planned Encouraged to establish with a dentist for routine dental care She brought documentation for wellness center clearance which has been signed for clearance Advised to get lab work done and follow-up for telehealth visit in 2-3 weeks for labs review Return with symptoms or concerns Verbalized understanding and agreed with treatment plan (2) Pap smear for cervical cancer screening: Code(s): Z12.4 - Encounter for screening for malignant neoplasm of cervix Plan: Last Pap smear test is unknown. She was referred last January but did not go for her appointment Referred to [facility] [place] [place] delicatessen slicer for a Pap smear test. Encouraged to schedule an appointment when contacted and follow-up (3) Eye exam, routine: Code(s): Z01.00 - Encounter for examination of eyes and vision without abnormal findings Plan: She has not had an eye exam in several years Referred to Ophthalmology for eye care (4) Obesity (BMI 30-39.9): Code(s): E66.9 - Obesity, unspecified Plan: She currently weighs 186 lb, BMI is 33.0 Healthy diet and routine exercise encouraged She plans to join a wellness center for physical exercise and nutritional coaching once her physical exam is updated (5) Laboratory tests ordered as part of a complete physical exam (CPE): Code(s): Z00.00 - Encounter for general adult medical examination without abnormal findings Plan: Fasting labs ordered as part of a complete physical exam. Advised to fast for at least 10 hours before getting labs drawn. May drink water Verbalized understanding and agreed with treatment plan. Orders: Orders Comprehensive [place]. Panel Fast Today Z00.00 - Encounter for general adult medical examination without abnormal findings TSH reflex Free T4 Today Z00.00 - Encounter for general adult medical examination without abnormal findings UA CC w/rflx Micro + Cult Today Z00.00 - Encounter for general adult medical examination without abnormal findings Complete Blood Count Auto Diff Today Z00.00 - Encounter for general adult medical examination without abnormal findings Lipid Panel Today Z00.00 - Encounter for general adult medical examination without abnormal findings Referrals Ophthalmology Referral Z01.00 - Encounter for examination of eyes and vision without abnormal findings 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
[2024-04-13 10:24] VITALS: BP 114/70; PULSE 101; RESP 16; TEMP 36.7; O2SAT 95; BMI 33.0
== END 2024-04-13 10:49 | disposition home or self-care (01) ==
PROVIDERS: PCP Nurse Practitioner Family; Visit Provider Nurse Practitioner Family
DX: Z00.00 Encounter for general adult medical examination without abnormal findings (principal); E66.9 Obesity, unspecified; F25.0 Schizoaffective disorder, bipolar type; Z68.33 Body mass index [BMI] 33.0-33.9, adult
CPT/HCPCS: 99395

== ENCOUNTER 2024-04-13 11:03 | Outpatient (REF) | payer OTHER, SELFPAY ==
[2024-04-13 14:13] LABS: Appearance Urine Clear; Color Urine Dark Yellow; Glucose Urine UA Negative (Negative); Leukocyte Esterase Urine Small (1+) (Negative); Nitrite Urine Negative (Negative); UMIC TRIGGER UACC YES; Urine Blood Large (3+) (Negative); Urine Ketones Trace mg/dL (Negative); Urine Protein Trace mg/dL (Neg-Trace)
[2024-04-13 14:20] LABS: Bacteria Urine Trace (None Seen); Hyaline Casts Urine 0-2 /LPF (0-2); RBC Urine >20 /HPF (0-2); UACC Culture Trigger YES
[2024-04-13 14:20] LABS: MANUAL DIFF FLAG NO
[2024-04-13 14:28] LABS: Basophils Absolute Auto 0.1 X10*3/uL (0.0-0.2); Basophils Percent Auto 0.4 % (0-2); Eosinophils Absolute Auto 0.4 X10*3/uL (0.0-0.4); Eosinophils Percent Auto 2.9 % (0-4); Hemoglobin 12.2 g/dl (12.0-16.0); Imm Gran Abs Auto 0.05 X10*3/uL (0.00-0.03); Imm Gran Pct Auto 0.4 % (0.0-0.4); Lymphocytes Absolute Auto 1.2 X10*3/uL (1.2-4.9); Lymphocytes Percent Auto 9.5 % (20-40); Mean Corpuscular HGB Conc 32.1 g/dl (31.0-35.0); Mean Corpuscular Hemoglobin 30.2 pg (27.0-33.0); Mean Corpuscular Volume 94.1 fL (80.0-98.0); Mean Platelet Volume 10.7 fL (9.4-12.3); Monocytes Absolute Auto 0.7 X10*3/uL (0.1-1.2); Monocytes Percent Auto 5.3 % (2-11); Neutrophils Absolute Auto 10.2 x10*3/uL (2.0-8.3); Neutrophils Percent Auto 81.5 % (45-73); Platelet Count 291 X10*3/uL (160-400); Red Blood Count 4.04 X10*6/uL (4.20-5.50); White Blood Count 12.5 X10*3/uL (4.8-10.8)
[2024-04-13 14:49] LABS: Alanine Aminotransferase 32 U/L (0-31); Albumin Level 4.1 g/dL (3.5-5.0); Alkaline Phosphatase 99 U/L (39-117); Anion Gap 11 (12-20); Aspartate Amino Transferase 24 U/L (5-31); Bilirubin Total 0.4 mg/dL (0.0-1.0); Blood Urea Nitrogen 9 mg/dL (9-16); Calcium 9.3 mg/dL (8.4-10.2); Carbon Dioxide 25 mmol/L (22-29); Chloride 109 mmol/L (96-108); Cholesterol 203 mg/dL (<200); Estimated Glomerular Filt Rate > 60; Glucose Fasting 100 mg/dL (60-99); HDL Cholesterol 67 mg/dL (>40); LDL Cholesterol Calculated 121 mg/dL (<100); Potassium 3.8 mmol/L (3.3-5.1); Sodium 141 mmol/L (135-145); Total Protein 6.6 g/dL (6.5-8.0); Triglycerides 79 mg/dL (<150)
[2024-04-13 15:05] LABS: TSH reflex Free T4 1.35 uIU/mL (0.32-4.0)
== END 2024-04-13 11:04 | disposition home or self-care (01) ==
LOC: HO.WFDLDS 11:03
PROVIDERS: Visit Provider Nurse Practitioner Family
DX: Z00.00 Encounter for general adult medical examination without abnormal findings (principal)
CPT/HCPCS: 36415; 80053; 80061; 81001; 84443; 85025; 87086

== ENCOUNTER 2024-05-04 14:40 | Outpatient (AMB) | payer OTHER, SELFPAY ==
--- NOTE | 2024-05-04 08:54 | MHC.PC.OV ---
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 [place] and had her phone on speaker phone [place] staff who was present She admits to taking her medications as prescribed without adverse reactions She offers no complaints and denies acute symptoms at this time [facility] Medical History Psoriasis Generalized headaches Surgical History Hx of tonsillectomy Family History Father No problems noted. Mother Asthma Maternal Grandfather CVD (cardiovascular disease) Brother No problems noted. Brother No problems noted. Brother No problems noted. Brother No problems noted. Social History Household Members: Family Caregiver staying overnight: Yes Housing: Other Housing Other:: [facility] Are you a primary urgent care physician to a significant other at home: No Do you presently have visiting nurse or other home services: No 75 years or older and lives alone: No Unable to assess alcohol history related to: Refusing to respond Alcohol intake: never Patient Tobacco Use Status: Former Tobacco user e-Cigarette/Vaping Use: Never Used Special kaylan needs: No Agree to transfusion: Yes service: No Current occupational status: disabled Current occupational exposures/hazards: No Sexual orientation: Straight/Heterosexual Gender identity: Female Cognitive needs: No Hearing needs: No Vision needs: No Questionnaire Thrive Questionnaire Date Thrive assessed: 04/13/24 TONYA-7 AMB Questionnaire TONYA-7 Date TONYA - 7 assessed: 04/13/24 Source: Developed by Drs. Trey Contreras, Lyly Kang, Steve Canchola and colleagues, with an educational jose from [employer]. Review of Systems Const Details: Const Denies chills, Denies fatigue, Denies fever(s), Denies headache(s) and Denies weakness ENT Denies dizziness and Denies headache(s) Card Denies chest pain, Denies lightheadedness, Denies dyspnea and Denies other (Palpitations) Resp Denies cough, Denies dyspnea, Denies wheezing and Denies other ( shortness of breath) GI Denies abdominal pain, Denies melena, Denies hematochezia, Denies change in bowel habits, Denies dyspepsia and Denies nausea Denies hematuria and Denies dysuria Musc Denies abnormal gait, Denies myalgias, Denies arthralgias, Denies numbness and Denies tingling Skin/Breast Denies rash, Denies unusual bruising and Denies wounds Neuro Denies abnormal gait, Denies dizziness, Denies headache(s), Denies memory loss, Denies numbness, Denies Sensory deficit (Neuro), Denies tingling and Denies weakness Psych Denies anxiety, Denies depression, Denies memory loss Endo Denies cold intolerance, Denies fatigue, Denies heat intolerance, Denies polydipsia and Denies polyuria Aller/Immun Denies wheezing Physical exam (Primary Care) Tobacco/Smoking Status: Tobacco use Status Tobacco use date assessed 04/13/24 05/04/24 08:56 Patient Tobacco Use Status Former Tobacco user 05/04/24 08:56 e-Cigarette/Vaping Use Never Used 05/04/24 08:56 Thrive Assessment: Date of Thrive Assessment Date Thrive assessed 04/13/24 05/04/24 08:56 Const Other: Telehealth visit. No physical exam Telehealth Telehealth Telehealth Platform: Telephone Location of provider rendering services: practice address Location of patient: address on file Patient Identification confirmed using: Name, : Yes Telehealth method: voice only Patient verbally consented to treatment: Yes Patient verbally consented to billing insurance company: Yes Patient informed of any privacy concerns related to visit: Yes Coding Level of Care Code Tele Est Pt Level 3 (86649) Diagnoses Hypercholesterolemia E78.00 Leukocytosis D72.829 Time Spent (min) 10 Assessment & Plan Assessment & Plan (1) Hypercholesterolemia: Code(s): E78.00 - Pure hypercholesterolemia, unspecified Category: Medical Plan: Recent labs reviewed with the patient; unrevealing findings except for slightly elevated cholesterol, 203 Advised to limit foods high in saturated fat and avoid foods high in trans fat Routine exercise encouraged Encouraged to schedule an extended physical exam for on/after 04/13/2025 or return sooner with symptoms or concerns Verbalized understanding and agreed with the plan (2) Leukocytosis: Code(s): D72.829 - Elevated white blood cell count, unspecified Category: Medical Plan: Recent WBC is slightly elevated, 12.5. Neutrophil is elevated, 81.5. Lymphocytes is low, 9.5 Patient denies acute symptoms Infection or inflammation is likely when she had blood work done. Her psychotropic medications may have also influenced her current CBC results Will repeat CBC and make changes or recommendations as needed. Encouraged to get blood work done at her earliest convenience Follow-up with symptoms or concerns Verbalized understanding and agreed with the plan Orders: Orders Complete Blood Count Auto Diff Today D72.829 - Elevated white blood cell count, unspecified
== END 2024-05-04 15:23 | disposition home or self-care (01) ==
LOC: HO.HMCFM 14:41
PROVIDERS: PCP Nurse Practitioner Family; Visit Provider Nurse Practitioner Family
DX: E78.00 Pure hypercholesterolemia, unspecified (principal); D72.829 Elevated white blood cell count, unspecified

== ENCOUNTER → 2024-05-04 14:40 | Outpatient (BNVA) | payer OTHER, SELFPAY | PROVIDERS: PCP Nurse Practitioner Family; Visit Provider Nurse Practitioner Family ==

== ENCOUNTER 2024-07-19 12:15 | Outpatient (AMB) | payer OTHER, SELFPAY ==
--- NOTE | 2024-07-19 12:19 | A.OFFVIS_ITS ---
Vital Signs 07/19/24 12:28 Height 5 ft 3 in Weight 173 lb 4 oz BMI 30.7 BP 137/69 Blood Pressure Location Rt brachial Position Sitting Respiration 16 Pulse 103 H Pulse Source Pulse Oximeter Temp 98.1 F Temp Source Temporal Artery Scan Pulse Oximetry (%) 97 Oxygen Delivery Method Room Air Intake Visit Reasons: sprained ankle Intake Note: patient here c/o sprained ankle she went to ED was seen and given ibuprofen but ankle still bothering her. 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 Patient reports frequent unexpected falls for about 2 years. She notes that it feels as though her knees collapsed before the fall. Last fall was on 07/07/2024. She had a consultation with her psychiatrist regarding her frequent fall and made adjustment with her clozapine, increased to 100mg at 6pm instead of 50mg; continue 300mg at HS. [place] level was normal. She denies dizziness or unsteady gait. She was evaluated at [facility] ED on 07/07/2024 after she fell and lost control of her knees and body and injured her left ankle. X-ray She was administered Ibuprofen and Tylenol and discharge home with instructions to take Tylenol ibuprofen as needed. She has been ambulating with the boot that was given to her in the ED. she is able to bear full weight to the left ankle although with significant amount of pain. She has been taking Tylenol without improvement; pain has not worsened. She describes the pain as soreness. X-ray in the ED revealed the following: Findings/impression: Linear osseous fragment along the medial aspect of the medial malleolus concerning for small avulsion fracture given recent trauma. Additional osseous irregularity along the medial aspect of the navicular seen only on AP view of the ankle may reflect an additional site of avulsion injury. No displaced fracture of the distal fibula or the posterior malleolus. Ankle mortise is congruent. Mild diffuse soft tissue edema at the distal left lower extremity and particularly periarticular at the ankle. [facility] Medical History Psoriasis Generalized headaches Surgical History Hx of tonsillectomy Family History Father No problems noted. Mother Asthma Maternal Grandfather CVD (cardiovascular disease) Brother No problems noted. Brother No problems noted. Brother No problems noted. Brother No problems noted. Social History Household Members: Family Caregiver staying overnight: Yes Housing: Other Housing Other:: [facility] Are you a primary customer care agent to a significant other at home: No Do you presently have visiting nurse or other home services: No 75 years or older and lives alone: No Unable to assess alcohol history related to: Refusing to respond Alcohol intake: never Patient Tobacco Use Status: Former Tobacco user e-Cigarette/Vaping Use: Never Used Special kaylan needs: No Agree to transfusion: Yes service: No Current occupational status: disabled Current occupational exposures/hazards: No Sexual orientation: Straight/Heterosexual Gender identity: Female Cognitive needs: No Hearing needs: No Vision needs: No Female Reproductive History Menstrual Date of last menstrual period: 07/05/24 Review of Systems Const Details: Const Denies chills, Denies fatigue, Denies fever(s), Denies headache(s) and Denies weakness ENT Denies dizziness and Denies headache(s) Card Denies chest pain, Denies lightheadedness, Denies dyspnea and Denies other (Palpitations) Resp Denies cough, Denies dyspnea, Denies wheezing and Denies other ( shortness of breath) GI Denies abdominal pain, Denies melena, Denies hematochezia, Denies change in bowel habits, Denies dyspepsia and Denies nausea Denies hematuria and Denies dysuria Musc Reports as per HPI Skin/Breast Denies rash, Denies unusual bruising and Denies wounds Neuro Denies abnormal gait, Denies dizziness, Denies headache(s), Denies memory loss, Denies numbness, Denies Sensory deficit (Neuro), Denies tingling and Denies weakness Psych Denies anxiety, Denies depression, Denies memory loss Endo Denies cold intolerance, Denies fatigue, Denies heat intolerance, Denies polydipsia and Denies polyuria Aller/Immun Denies wheezing Physical Exam Const Other: General: no acute distress and well developed Nutritional Appearance: well nourished Orientation/consciousness: [facility]: Yes normocephalic and Yes atraumatic Eyes General: appearance normal, both eyes and all related structures Pupils: Equal, round and reactive pupils present EOM: EOMs intact bilaterally Resp Effort & Inspection: normal respiratory effort Auscultation: clear to auscultation bilaterally Cardio Rate: regular rate Rhythm: regular rhythm Heart sounds: S1 normal heart sound present, S2 normal heart sound present, no gallops, no murmurs and no rubs GI Palpation (GI): No Abdominal aortic bruit present, Soft to palpation, nontender, No hepatosplenomegaly present and No Rebound tenderness present Auscultation: normal bowel sounds General: Yes no CVA tenderness Back/Spine/Pelvis Back: no CVA tenderness Cervical Spine: cervical ROM normal and No Cervical spine tenderness Thoracic/Lumbar Spine: thoraco-lumbar ROM normal, No pain with thoraco-lumbar ROM, No thoracic spinal tenderness and No lumbar spinal tenderness Extrem General: Yes normal to inspection, No calf tenderness LLE: Left ankle and foot swelling and tenderness Skin General: warm and dry. Normal skin color. Normal skin turgor Lesions: no lesions Rashes: no rashes Trauma: no lacerations or abrasions Wounds: no wounds Nails: normal Neuro General: patient oriented x3, gait normal and no focal neuro deficit Cranial nerves: Yes Equal, round and reactive pupils present Cognition (Neuro): normal cognition Gait exam (Neuro): Normal gait present Sensory Exam: No Sensory deficit (Neuro) Psych Appearance: grossly normal Affect: normal affect Attitude: cooperative Thought process: Normal thought process present Assessment & Plan Assessment & Plan (1) Left ankle sprain: Code(s): S93.402A - Sprain of unspecified ligament of left ankle, initial encounter Category: Medical Plan: Left ankle and foot with moderate edema; tenderness to palpation. Naproxen 500 mg twice daily as needed ordered; advised to take as prescribed with food. May take Tylenol every 4 hours as needed after naproxen. Encouraged to rest, ice, compress, and elevate. Referred to physical therapy for lower extremity strengthening. Follow-up with worsening or new symptoms. Verbalized understanding and agreed with the plan. (2) Weakness of both lower extremities: Code(s): R29.898 - Other symptoms and signs involving the musculoskeletal system Category: Medical Plan: Plan as above. Orders: Orders PT Evaluation and Treatment Today R29.898 - Other symptoms and signs involving the musculoskeletal system, S93.402A - Sprain of unspecified ligament of left ankle, initial encounter Medications: New naproxen 500 mg PO BID PRN 30 tabs 0RF pain Coding Level of Care Code Est Pt Level 4 (18304) Diagnoses Left ankle sprain S93.402A Weakness of both lower extremities R29.898
[2024-07-19 12:28] VITALS: BP 137/69; PULSE 103; RESP 16; TEMP 36.7; O2SAT 97; BMI 30.7
== END 2024-07-19 13:14 | disposition home or self-care (01) ==
PROVIDERS: PCP Nurse Practitioner Family; Visit Provider Nurse Practitioner Family
DX: S93.402A Sprain of unspecified ligament of left ankle, initial encounter (principal); R29.898 Other symptoms and signs involving the musculoskeletal system

== ENCOUNTER → 2024-07-19 12:15 | Outpatient (BNVA) | payer OTHER, SELFPAY | PROVIDERS: PCP Nurse Practitioner Family; Visit Provider Nurse Practitioner Family | DX: S93.402A Sprain of unspecified ligament of left ankle, initial encounter (principal); R29.898 Other symptoms and signs involving the musculoskeletal system | CPT/HCPCS: 99212 ==

== ENCOUNTER 2025-04-17 09:57 | Outpatient (REF) | payer OTHER, SELFPAY ==
[2025-04-17 14:26] LABS: MANUAL DIFF FLAG NO
[2025-04-17 14:31] LABS: Hematocrit 38.8 % (37.0-47.0); Hemoglobin 12.4 g/dl (12.0-16.0); Imm Gran Abs Auto 0.02 X10*3/uL (0.00-0.03); Imm Gran Pct Auto 0.3 % (0.0-0.4); Lymphocytes Absolute Auto 1.4 X10*3/uL (1.2-4.9); Mean Corpuscular HGB Conc 32.0 g/dl (31.0-35.0); Mean Corpuscular Hemoglobin 28.6 pg (27.0-33.0); Mean Corpuscular Volume 89.6 fL (80.0-98.0); NRBC Abs Auto 0.000 X10*3/uL (0.0-0.012); NRBC Pct Auto 0.0 /100WBC (0.0-0.2); Platelet Count 291 X10*3/uL (160-400); Red Blood Count 4.33 X10*6/uL (4.20-5.50); White Blood Count 6.4 X10*3/uL (4.8-10.8)
[2025-04-17 14:56] LABS: Appearance Urine Clear; Glucose Urine UA Negative (Negative); PH 7.5 (5.0-9.0); Specific Gravity - Urine <= 1.005 (1.005-1.025)
[2025-04-17 14:58] LABS: Alanine Aminotransferase 28 U/L (0-31); Albumin Level 4.6 g/dL (3.5-5.0); Alkaline Phosphatase 93 U/L (39-117); Anion Gap 11 (12-20); Aspartate Amino Transferase 24 U/L (5-31); Blood Urea Nitrogen 8 mg/dL (9-16); Calcium 9.5 mg/dL (8.4-10.2); Carbon Dioxide 28 mmol/L (22-29); Chloride 107 mmol/L (96-108); Cholesterol 249 mg/dL (<200); Estimated Glomerular Filt Rate > 60; HDL Cholesterol 72 mg/dL (>40); Potassium 4.2 mmol/L (3.3-5.1); Sodium 142 mmol/L (135-145); Total Protein 7.2 g/dL (6.5-8.0); Triglycerides 97 mg/dL (<150)
== END 2025-04-17 09:58 | disposition home or self-care (01) ==
LOC: HO.WFDLDS 09:57
PROVIDERS: PCP Nurse Practitioner Family; Visit Provider Nurse Practitioner Family
DX: Z00.00 Encounter for general adult medical examination without abnormal findings (principal); Z12.4 Encounter for screening for malignant neoplasm of cervix; D72.829 Elevated white blood cell count, unspecified; R09.81 Nasal congestion; E66.9 Obesity, unspecified; Z79.1 Long term (current) use of non-steroidal anti-inflammatories (NSAID); Z79.899 Other long term (current) drug therapy; Z68.33 Body mass index [BMI] 33.0-33.9, adult
CPT/HCPCS: 36415; 80053; 80061; 81003; 82043; 82306; 82570; 84443; 85025; 96127; 99212; 99395

== ENCOUNTER 2025-04-17 09:57 | Outpatient (AMB) | payer OTHER, SELFPAY ==
--- NOTE | 2025-04-17 10:12 | MHC.PC.OV ---
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: No Is last menstrual period known: Yes Last menstrual period: 04/03/25 Post menopausal: No Patient : No Allergies penicillin V Allergy (Unknown, Verified 04/17/25 10:41) hives paroxetine (Paxil) Adverse Reaction (Unknown, Verified 04/17/25 10:41) anorgasmia Medication List - Last Reconciled 04/17/25 by Sandro Price CNP acetaminophen ER 650 mg PO DAILY benztropine 1 mg PO BID clozapine 300 mg PO BEDTIME dextroamphetamine-amphetamine 25 mg ER (Adderall XR) 25 mg PO BID fluoxetine (Prozac) 80 mg PO BEDTIME glycopyrrolate 3 mg PO BID lamotrigine ER (Lamictal XR) 300 mg PO DAILY loratadine (Claritin) 10 mg PO DAILY 90 days naproxen 500 mg PO BID PRN Tobacco use date assessed: 04/17/25 Dental Screening Dental Screen Date: 04/17/25 Did you have a dental visit in the last 12 months?: No Did you have a dental problem in the last 6 months where you did not have access to dental care?: No Was dental information given to patient?: Patient has dentist HPI HPI Comments History of Present Illness Details 34-year-old female, accompanied by her aunt, presents for an extended physical exam. She lives in a nursing home. She admits to taking her medications as prescribed without adverse reactions. She reports controlled mood with current treatment regimen. Denies cough or constitutional symptoms. Acute issue(s) - Reports nasal congestion for the past couple of weeks. She is on Claritin 10 mg daily. Past Medical History - ADD, schizoaffective disorder, bipolar type, psychosis, hypercholesterolemia, left ankle sprain, psoriasis, leukocytosis, involuntary muscle collapse (r/t to medications/lithium per Neurology) Social History - Nonsmoker. Does not vape. Does not drink alcohol. Denies recreational drug use - Has been making healthy dietary choices. Does not exercise. Generally sleep well Health maintenance - Last eye exam was several years ago. Referred to Ophthalmology - Last dental visit was several years ago; encouraged to schedule an appointment with his dentist for routine dental care. - Last Tdap was in 10/03/2013 - Has not been vaccinated for the flu this season; declines vaccination - Last pap smear test unknown. Referred to [facility] senior construction estimator Specialists - Psychiatrist every 3 months at [facility] Neurology [facility] Medical History Psoriasis Generalized headaches Surgical History Hx of tonsillectomy Family History Father No problems noted. Mother Asthma Maternal Grandfather CVD (cardiovascular disease) Brother No problems noted. Brother No problems noted. Brother No problems noted. Brother No problems noted. Social History Household Members: Family Caregiver staying overnight: Yes Housing: Other Housing Other:: [facility] Are you a primary children's zoo caretaker to a significant other at home: No Do you presently have visiting nurse or other home services: No 75 years or older and lives alone: No Unable to assess alcohol history related to: Refusing to respond Alcohol intake: never Patient Tobacco Use Status: Former Tobacco user e-Cigarette/Vaping Use: Never Used Second Hand Smoke Exposure: No Special kaylan needs: No Agree to transfusion: Yes service: No Current occupational status: disabled Current occupational exposures/hazards: No Sexual orientation: Straight/Heterosexual Gender identity: Female Cognitive needs: No Hearing needs: No Vision needs: No Female Reproductive History Menstrual Date of last menstrual period: 04/03/25 Questionnaire PHQ-9 Over the last 2 weeks, how often have you been bothered by any of the following problems? 1. Little interest or pleasure in doing things: more than half the days 2. Feeling down, depressed, or hopeless: several days 3. Trouble falling or staying asleep, or sleeping too much: not at all 4. Feeling tired or having little energy: several days 5. Poor appetite or overeating: several days 6. Feeling bad about yourself - or that you are a failure or have let yourself or your family down: not at all 7. Trouble concentrating on things, such as reading the newspaper or watching television: several days 8. Moving or speaking so slowly that other people could have noticed. Or the opposite - being so fidgety or restless that you have been moving around a lot more than usual: several days 9. Thoughts that you would be better off or of hurting yourself in some way: not at all Total score: 7 Depression Screening Interpretation: Positive Depression Screening Done: Yes 27091 - PHQ-9 Billing: Yes Source: Developed by Drs. Trey Contreras, Lyly Kang, Steve Canchola and colleagues, with an educational jose from [employer]. Thrive Questionnaire Date Thrive assessed: 04/17/25 I am a: Patient What is your living situation today?: I have a steady place to live Within the past 12 months, did the food you bought not last and you didn't have the money to get more?: Never true Within the past 12 months, did you worry whether your food would run out before you got money to buy more?: Never true Do you have trouble paying for medicines?: No Do you have trouble getting transportation to medical appointments?: No Do you have trouble paying your heating and electricity bill?: No Do you have trouble taking care of your child, family member or friend?: No Do you have trouble with day-to-day activities such as bathing, preparing meals, shopping, managing finances, etc.?: No Are you currently unemployed and looking for a job?: No Are you interested in more education?: Yes Please select the resources that you would like help with: None Currently or been in a relationship where the following occur: No concerns reported THRIVE Score: 0 AUDIT C Alcohol Use Questionnaire (AUDIT-C) 1. How often do you have a drink containing alcohol?: Never 3. How often do you have six or more drinks on one occasion?: Never Total Score: 0 Score Reviewed/Action Taken: Yes TONYA-7 AMB Questionnaire TONYA-7 Date TONYA - 7 assessed: 04/17/25 Feeling nervous, anxious, or on edge: 1 = Several days Not being able to stop or control worryin = Several days Worrying too much about different things: 1 = Several days Trouble relaxin = Several days Being so restless that it is hard to sit still: 0 = Not at all Becoming easily annoyed or irritable: 0 = Not at all Feeling afraid as if something awful might happen: 0 = Not at all Total TONYA-7 score (0-4 normal; 5-9 mild; 10-14 moderate; 15-21 severe): 4 Source: Developed by Drs. Trey Contreras, Lyly Kang, Steve Canchola and colleagues, with an educational jose from [employer]. TONYA-7 Assessment Billing TONYA-7 Assessment Tool: TONYA-7 Assessment 77540 Review of Systems Const Details: Denies chills, Denies fatigue, Denies fever(s), Denies headache(s) and Denies weakness HEENT Denies change in vision, Denies dizziness, Denies headache(s), Denies hearing loss, Denies nasal congestion, Denies sinus pain, Denies sinus pressure and Denies sore throat Card Denies chest pain, Denies lightheadedness, Denies dyspnea and Denies other (palpitations) Resp Denies cough, Denies dyspnea and Denies wheezing GI Denies abdominal pain, Denies melena, Denies hematochezia, Denies change in bowel habits, Denies dyspepsia and Denies nausea Denies hematuria and Denies dysuria Musc Denies abnormal gait, Denies myalgias, Denies arthralgias, Denies numbness and Denies tingling Skin/Breast Denies rash, Denies unusual bruising and Denies wounds Neuro Denies abnormal gait, Denies dizziness, Denies headache(s), Denies memory loss, Denies numbness, Denies Sensory deficit (Neuro), Denies tingling and Denies weakness Psych Denies anxiety, Denies depression and Denies memory loss Endo Denies cold intolerance, Denies fatigue, Denies heat intolerance, Denies polydipsia and Denies polyuria Louis/Lymph Denies easy bleeding and Denies easy bruising Aller/Immun Denies wheezing Physical exam (Primary Care) Vital Signs: Last Vital Signs Temp 97.7 F 04/17/25 10:20 Pulse 96 04/17/25 10:20 Resp 16 04/17/25 10:20 BP 104/74 04/17/25 10:20 Pulse Ox 98 04/17/25 10:20 Oxygen Delivery Method Room Air 04/17/25 10:20 BMI result Body Mass Index 33.3 Tobacco/Smoking Status: Tobacco use Status Tobacco use date assessed 04/17/25 04/17/25 10:23 Patient Tobacco Use Status Former Tobacco user 04/17/25 10:14 e-Cigarette/Vaping Use Never Used 04/17/25 10:14 PHQ-9: PHQ-9 Score PHQ-9: Total score 7 04/17/25 10:44 Depression Screening Interpretation: Positive Thrive Assessment: Date of Thrive Assessment Date Thrive assessed 04/17/25 04/17/25 10:15 Currently or been in a relationship where the following occur: No concerns reported Const Other: General: no acute distress, well developed, alert and awake Nutritional Appearance: well nourished Orientation/consciousness: patient oriented x3 HENMT Head: Yes normocephalic and Yes atraumatic Ears: hearing grossly normal bilaterally and TM's normal bilaterally General nose exam: Normal external nose present and Normal nares present Mouth: Normal oral and palatal mucosa present and moist mucous membranes Teeth and gingiva: dentition normal Throat: Yes oropharynx normal Eyes Pupils: Equal, round and reactive pupils present and Pupil accommodation reflex normal EOM: EOMs intact bilaterally Neck Neck: Yes normal visual inspection, Yes no lymphadenopathy and Yes trachea midline Thyroid: Thyroid normal Carotids: no bruits Lymphatic: no lymphadenopathy noted Chest Chest palpation & inspection: normal inspection of the chest Resp Effort & Inspection: normal respiratory effort Auscultation: clear to auscultation bilaterally Cardio Rate: regular rate Rhythm: regular rhythm Heart sounds: S1 normal heart sound present, S2 normal heart sound present, no gallops, no murmurs and no rubs Bruits: no abdominal aortic bruits and no carotid bruits GI Palpation (GI): No Abdominal aortic bruit present, Soft to palpation, nontender, No hepatosplenomegaly present and No Rebound tenderness present Auscultation: normal bowel sounds General: Yes no CVA tenderness Back/Spine/Pelvis Back: no CVA tenderness Cervical Spine: cervical ROM normal and No Cervical spine tenderness Thoracic/Lumbar Spine: thoraco-lumbar ROM normal, No pain with thoraco-lumbar ROM, No thoracic spinal tenderness and No lumbar spinal tenderness Skin General: warm and dry. Normal skin color. Normal skin turgor Lesions: no lesions Rashes: no rashes Trauma: no lacerations or abrasions Wounds: no wounds Nails: normal Neuro General: patient oriented x3, gait normal and CN's II-XI intact bilaterally Cranial nerves: Yes Equal, round and reactive pupils present Cognition (Neuro): normal cognition Gait exam (Neuro): Normal gait present Motor exam (neuro): 5/5 motor strength present throughout Sensory Exam: No Sensory deficit (Neuro) Deep tendon reflexes (DTR's): Right patellar reflex intensity grade: 2+ and Left patellar reflex intensity grade: 2+ Extrem General: Yes normal to inspection, No edema and No calf tenderness Psych Appearance: grossly normal Affect: normal affect Attitude: cooperative Thought process: Normal thought process present Coding Level of Care Code Est Pt Level 4 (93723) Est Pt Prev Care 18-39y(78910) Diagnoses Normal physical examination, routine Z00.00 Nasal congestion R09.81 Obesity (BMI 30-39.9) E66.9 Eye exam, routine Z01.00 Pap smear for cervical cancer screening Z12.4 Laboratory tests ordered as part of a complete physical exam (CPE) Z00.00 Additional Codes TONYA-7 Assessment Billing - TONYA-7 Assessment Tool: TONYA-7 Assessment 09311 ([id number]) PHQ-9 - 51097 - PHQ-9 Billing: Yes ([id number]) Assessment & Plan Assessment & Plan (1) Normal physical examination, routine: Code(s): Z00.00 - Encounter for general adult medical examination without abnormal findings Category: Medical Plan: No significant functional limitations noted. Continue current treatment regimen. Follow-up with specialists as planned. Perform lab work and follow-up for a telehealth visit for labs review in 2-4 weeks. Return sooner with symptoms or concerns. Verbalized understanding and agreed with the plan. (2) Nasal congestion: Code(s): R09.81 - Nasal congestion Category: Medical Plan: Reports nasal congestion for the past couple of weeks. She is on Claritin 10 mg daily. Normal physical exam. Likely allergies. Flonase ordered. Advised to take as prescribed. Continue to take Claritin as prescribed. Follow-up as needed. Verbalized understanding and agreed with the plan. (3) Obesity (BMI 30-39.9): Code(s): E66.9 - Obesity, unspecified Category: Medical Plan: She currently weighs 188 lb, BMI is 33.3. Healthy diet and routine exercise encouraged. Follow-up as needed. Verbalized understanding and agreed with the plan. (4) Eye exam, routine: Code(s): Z01.00 - Encounter for examination of eyes and vision without abnormal findings Category: Medical Plan: Last eye exam was several years ago. Referred to Ophthalmology. (5) Pap smear for cervical cancer screening: Code(s): Z12.4 - Encounter for screening for malignant neoplasm of cervix Category: Medical Plan: Last pap smear test unknown. Referred to [facility] senior construction estimator. (6) Laboratory tests ordered as part of a complete physical exam (CPE): Code(s): Z00.00 - Encounter for general adult medical examination without abnormal findings Category: Medical Plan: Fasting labs ordered as part of a complete physical exam. Advised to fast for at least 10 hours before getting labs drawn. May drink water Verbalized understanding and agreed with treatment plan. Orders: Orders Comprehensive [place]. Panel Fast Today Z00.00 - Encounter for general adult medical examination without abnormal findings Microalbumin, Random (w Creat) Today Z00.00 - Encounter for general adult medical examination without abnormal findings TSH reflex Free T4 Today Z00.00 - Encounter for general adult medical examination without abnormal findings Complete Blood Count Auto Diff Today Z00.00 - Encounter for general adult medical examination without abnormal findings Lipid Panel Today Z00.00 - Encounter for general adult medical examination without abnormal findings UA CC w/rflx Micro + Cult Today Z00.00 - Encounter for general adult medical examination without abnormal findings Vitamin D 25-OH Total Today Z00.00 - Encounter for general adult medical examination without abnormal findings Referrals METALLURGICAL ENGINEER Referral Z12.4 - Encounter for screening for malignant neoplasm of cervix Ophthalmology Referral Z01.00 - Encounter for examination of eyes and vision without abnormal findings Medications: New fluticasone propionate 50 mcg/actuation (Flonase Allergy Relief) Administer into each nostril. Two actuations in each nostril nostril daily 2 sprays intranasal DAILY 16 grams 2RF
[2025-04-17 10:20] VITALS: BP 104/74; PULSE 96; RESP 16; TEMP 36.5; O2SAT 98; BMI 33.3
--- OUTSIDE RECORDS SUMMARY | 2025-04-17 12:57 | XMS_ITS | Encounter Summary ---
Author Organization [facility] Address [address] [place] [address] Phone Care Team Providers Care Camp Tender Name Role Phone Belen Oviedo MD Primary Care Provider [phone] Sandro Price NP Primary Care Provider [phone] Encounter Details Date Type Department Care Team (Late st Contact Info) Description 01/17/2021 Procedure Pass [address] [address] Social History Tobacco Use Types Packs/Day Years Used Date Smoking Tobacco: Never Smokeless Tobacco: Never Alcohol Use Standard Drinks/Week Comments Not Currently 0 (1 standard drink = 0.6 oz pur e alcohol) Comments Unknown Sex and Gender Information Value Date Recorded Sex Assigned at Female 11/01/2020 8:57 PM EDT Legal Sex Female 9:07 PM EDT Gender Identity Female 11/01/2020 8:57 PM EDT Sexual Orientation Straight 11/01/2020 8: 57 PM EDT documented as of this encounter Plan of Treatment Upcoming Encounters Date Type Department Care Team (Late st Contact Info) Description 10/23/2025 11:00 AM EDT Office Visit [facility], Department of Neurology [address] [place] [address] Yany Edmond MD [address] [place] [address] [email or web address] documented as of this encounter Visit Diagnoses Not on filedocumented in this encounter Additional Health Concerns Infection Onset Date Last Indicated Resolved Time CoV-Exposed Comment:Exposed by staff on 06/26/21 06/26/2021 07/04/202112/2020 1:22 AM EST documented as of this encounter Care Teams Camp Tender Relationship Specialty Start Date End Date Belen Oviedo MD [facility] [address] PCP - General 10/31/20 02/08/23 Sandro Price NP [address] [place] [address] [place] [address] PCP - General Nurse Practitioner 02/09/23 documented as of this encounter Additional Source Comments The information contained in this document represents components of the legal health record. It is not the complete legal health record.[facility]
--- OUTSIDE RECORDS SUMMARY | 2025-04-17 12:57 | XMS_ITS | Clinical Summary ---
Author Organization [facility] Address [address] [address] Phone Care Team Providers Care Vp Of Digital Marketing Name Role Phone Sandro Price COIL CONNECTOR REPAIRER Primary Care Provider [phone] Allergies Active Allergy Reactions Criticality Noted Date Comments Penicillins 10/31/2020 Medications * This document contains information received from the source organization and may not represent a complete record from that organization. dextroamphetami ne-amphetamine (ADDERALL XR) 25 MG 24 hr capsuleIndicati ons:BRAND NAME ONLY MEDICALLY NECESSARY Take 1 capsule (25 mg total) by mouth 2 (two) times a day. Indications: BRAND NAME ONLY MEDICALLY NECESSARY 60 capsule 1 Active cloZAPine (CLOZARIL) 100 MG tablet 4 Active FLUoxetine (PROZAC) 40 MG capsule Take 80 mg by mouth daily. 4 Active acetaminophen (TYLENOL) 325 mg tablet Take 650 mg by mouth every 6 (six) hours as needed. Active lamoTRIgine (LAMICTAL) 150 MG IMMEDIATE release tablet 4 Active glycopyrrolate (ROBINUL) 1 mg tablet 4 Active lithium (LITHOBID) 450 MG ER tablet 4 Active loratadine (CLARITIN) 10 mg tablet 4 Active benztropine (COGENTIN) 1 MG tablet Take 1 mg by mouth 2 (two) times a day. Active naproxen (EC NAPROSYN) 500 MG EC tablet Take 500 mg by mouth 2 (two) times a day as needed (pain). 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 Encounters Date Type Department Care Team Description 03/14/2025 7:57 AM EDT - 03/14/2025 11:59 PM EDT Hospital Encounter [facility] [address] [place] [address] Carl Whitley NP Discharge Disposition: Home or Self Care from Last 3 Months Immunizations Immunization Administration Dates Next Due Td (adult) 5 Lf Tetanus Toxoid, PF, Adsorbed 10/2013 Social History Tobacco Use Types Packs/Day Years Used Date Smoking Tobacco: Former Cigarettes Smokeless Tobacco: Never Tobacco Cessation:Counseling Given: Not Answered Alcohol Use Standard Drinks/Week Comments Not Currently 0 (1 standard drink = 0.6 oz pur e alcohol) Education Answer Date Recorded Are you interested in more education? Not on jackeline e 11/27/2022 Are you concerned about learning? Not on file 11/27/2022 No 11/27/2022 No 11/27/2022 Digital Access Answer Date Recorded No 12/28/2022 No 12/28/2022 Reliable internet access at home? Not on file 12/28/2022 Device with a working camera? Not on file Intimate Partner Violence Answer Date R ecorded Are you denied basic needs s uch as food, clothing, or medical care? No 07/07/2024 In the past 12 months have y ou been in a relationship with a person who hurts, threatens, or tries to control you? No 07/07/2024 Are you denied basic needs s uch as food, clothing, or medical care? No 07/07/2024 In the past 12 months have y ou been in a relationship with a person who hurts, threatens, or tries to control you? No 07/07/2024 Comments No Sex and Gender Information Value Date Recorded Sex Assigned at Female 11/01/2020 8:57 PM EDT Legal Sex Female 9:07 PM EDT Gender Identity Female 11/01/2020 8:57 PM EDT Sexual Orientation Straight 11/01/2020 8: 57 PM EDT Last Filed Vital Signs Vital Sign Reading Time Taken Comments Blood Pressure 114/74 11/23/2024 8:26 AM EDT Pulse 93 11/23/2024 8:26 AM EDT Temperature 36.6 C (97.9 F) 07/08/2024 12:00 AM EST Respiratory Rate 16 11/23/2024 8:23 AM EDT Oxygen Saturation 96% 11/23/2024 8:26 AM EDT Inhaled Oxygen Concentration - - Weight 81.6 kg (180 lb) 01/10/2025 3:10 PM EDT Height 160 cm (5' 3 ) 01/10/2025 3:10 PM EDT Body Mass Index 31.89 01/10/2025 3:10 PM EDT Plan of Treatment Upcoming Encounters Date Type Department Care Team (Late st Contact Info) Description 10/23/2025 11:00 AM EDT Office Visit [facility], Department of Neurology [address] [place] [address] Yany Edmond MD [address] [place] [address] [email or web address] Due Date Last Done Comments SMOKING Hx and SMOKELESS TOBACCO SCREENING 2001 HEPATITIS C SCREENING 2006 HIV ONE-TIME SCREENING (18-65 YEARS) 2006 PAP SMEAR 2009 Adult Td,Tdap Booster 10/04/2023 10/03/2013 TSH LEVEL 02/17/2024 02/16/2023, 05/17/2021 ABSOLUTE NEUTROPHIL COUNT (ANC) 02/07/2025 01/10/2025, 11/23/2024, 09/12/2024, Additional history exists INFLUENZA VACCINE (#1) 2025 COVID-19 VACCINE ( season) 2025 07/31/2021 DEPRESSION SCREENING 11/23/2025 11/23/2024 CREATININE LEVEL 03/14/2026 03/14/2025, , 06/22/2024, Additional history exists LITHIUM LEVEL 03/14/2026 03/14/2025, 11/01, 06/22/2024 SCREENING FOR DIABETES 03/14/2028 03/14/2025 HEPATITIS A VACCINES Aged Out No long er eligible based on patient's age to complete this topic HIB VACCINES Aged Out No longer eligi ble based on patient's age to complete this topic MENINGOCOCCAL VACCINES (ACWY) Aged Out No longer eligible based on patient's age to complete this topic MENINGOCOCCAL VACCINES (B) Aged Out N o longer eligible based on patient's age to complete this topic PNEUMOCOCCAL VACCINES (0-49 years) Aged Out No longer eligible based on patient's age to complete this topic Medical Devices Not on file Procedures Procedure Name Priority Date/Time Associated Diagnosis Comments BASIC METABOLIC PANEL Routine 03/14/2025 8:25 AM EDT Diagnosis unknown LITHIUM LEVEL Routine 03/14/2025 8:25 AM EDT Diagnosis unknown CLOZAPINE LEVEL Routine 03/14/2025 8:25 AM EDT Diagnosis unknown LAMOTRIGINE LEVEL Routine 03/14/2025 8:2 5 AM EDT Diagnosis unknown CBC AND DIFFERENTIAL Routine 01/10/2025 8:33 AM EDT Schizoaffective disorder, bipolar type Encounter for long-term (current) use of high-risk medication TSH WITH REFLEX Routine 02/16/2023 7:42 AM EDT Routine general medical examination at a [facility] care facility from Last 3 Months or Most Recently Relevant to Health Maintenance Results * (ABNORMAL) Clozapine level (03/14/2025 8:25 AM EDT) CLOZAPINE 1,370(H) 350 - 600 ng/mL [facility] NORCLOZAPINE 446 Not well established ng/mL [facility] CLOZ/NORCLOZ TOTAL 1,816 Not well established ng/mL [facility] Comment: (NOTE) ADDITIONAL INFORMATION This test was developed and its performance characteristics determined by [facility] in a manner consistent with CLIA requirements. This test has not been cleared or approved by the U.S. Food and Drug Administration. Blood 03/14/2025 8:25 AM EDT 03/14/2025 8:32 AM EDT Carl Whitley NP LAB BLOOD ORDERABLES Final Result [facility] [address] [address] [place] [address] * Lamotrigine level (03/14/2025 8:25 AM EDT) LAMOTRIGINE 5.5 4.0 - 18.0 mcg/mL [facility] Comment:This test was develo ped and its performance characteristics determined by the [facility]. It has not been cleared or approved by the US Food and Drug Administration. This laboratory is certified under CLIA as qualified to perform high complexity clinical laboratory testing. Blood 03/14/2025 8:25 AM EDT 03/14/2025 8:32 AM EDT Carl Whitley NP LAB BLOOD ORDERABLES Final Result Performing Organization Address City/[facility]/ZIP Co de Phone Number [facility] [address] [place] [address] * (ABNORMAL) [place] level (03/14/2025 8:25 AM EDT) LITHIUM 0.25(L) 0.5 - 1.00 mmol/L [facility] Blood 03/14/2025 8:25 AM EDT 03/14/2025 8:32 AM EDT Carl Whitley COIL CONNECTOR REPAIRER LAB BLOOD ORDERABLES Final Result Performing Organization Address City/[facility]/ZIP Co de Phone Number [facility] [address] [place] [address] * (ABNORMAL) Basic metabolic panel (03/14/2025 8:25 AM EDT) SODIUM 139 133 - 146 mmol/L [facility] CHLORIDE 105 96 - 108 mmol/L [facility] POTASSIUM 4.0 3.3 - 5.1 mmol/L [facility] CO2 23 21 - 35 mmol/L [facility] BUN 10 6 - 19 mg/dL [facility] CREATININE 0.90 0.5 - 1.5 mg/dL [facility] GLUCOSE 109(H) 70 - 99 mg/dL [facility] CALCIUM 8.9 8.4 - 10.3 mg/dL [facility] EGFR 85 >59 mL/min/1.7 3m2 [facility] Comment:Estimated glomerular filtration rate calculated using the CKD-EPI refit equation. ANION GAP 15 10 - 20 mmol/L [facility] Blood 03/14/2025 8:25 AM EDT 03/14/2025 8:32 AM EDT us Carl Whitley COIL CONNECTOR REPAIRER LAB BLOOD ORDERABLES Final Result Performing Organization Address City/State/[facility] Co de Phone Number [facility] [address] [place] [address] * (ABNORMAL) CBC and differential (01/10/2025 8:33 AM EDT) WBC 7.19 4.00 - 11.00 K/uL [facility] RBC 4.18 4.00 - 5.20 M/uL [facility] HGB 11.5(L) 12.0 - 16.0 g/dL [facility] HCT 38.1 36.0 - 46.0 % [facility] PLT 297 150 - 450 K/uL [facility] MCV 91.1 80.0 - 100.0 fL [facility] MCH 27.5 27.0 - 31.0 pg [facility] MCHC 30.2(L) 32.0 - 36.0 g/dL [facility] RDW 14.6(H) 11.5 - 14.5 % [facility] MPV 10.5 8.4 - 12.0 fL [facility] NRBC 0.00 0.00 /100 WBCs [facility] ABSOLUTE NRBC 0.00 0.00 K/uL [facility] DIFF METHOD Auto [facility] NEUTS 58.0 48.0 - 76.0 % [facility] LYMPHS 28.2 18.0 - 41.0 % [facility] MONOS 7.6 4.0 - 11.0 % [facility] EOS 5.1(H) 0.0 - 5.0 % [facility] BASOS 0.8 0.0 - 1.5 % [facility] Granulocytes, immature (%) 0.3 0.0 - 0.9 % [facility] ABSOLUTE NEUTS 4.16 1.92 - 7.60 K/uL [facility] ABSOLUTE LYMPHS 2.03 0.72 - 4.10 K/uL [facility] ABSOLUTE MONOS 0.55 0.16 - 1.10 K/uL [facility] ABSOLUTE EOS 0.37 0.00 - 0.50 K/uL [facility] ABSOLUTE BASOS 0.06 0.00 - 0.15 K/uL [facility] Granulocytes, immature 0.02 0.00 - 0.09 K/uL [facility] Blood 01/10/2025 8:33 AM EDT 01/10/2025 8:37 AM EDT us Karin Linn MD LAB BLOOD ORDERABLES F inal Result [address] [address] * TSH with reflex (02/16/2023 7:42 AM EDT) TSH 3.31 0.27 - 4.20 uIU/mL [facility] Blood 02/16/2023 7:42 AM EDT 02/16/2023 7:47 AM EDT us Sandro Price COIL CONNECTOR REPAIRER LAB BLOOD ORDERABLES Final Result Performing Organization Address City/[facility]/ZIP Co de Phone Number [address] [address] from Last 3 Months or Most Recently Relevant to Health Maintenance Insurance [place] [address] [place] [address] [place] [address] [place] [address] [place] [address] [place] [address] [place] [address] [place] [address] [employer] A[employer] Advance Directives For more information, please contact: [phone] (9AM - 5PM [place], Wednesday-Wednesday) * Full Code (Latest Code Status on File) Date Activated Date Inactivated Comments 06/06/2021 5:54 PM Question Answer Comments Code Status Confirmed With: Patient Code Status Communicated To: Inpatient Attending * Full Code Date Activated Date Inactivated Comments 05/16/2021 2:35 PM 06/06/2021 5:54 PM Question Answer Comments Code Status Confirmed With: Patient * Full Code Date Activated Date Inactivated Comments 11/07/2020 8:49 AM 05/16/2021 2:35 PM Question Answer Comments Code Status Confirmed With: Patient Care Teams Vp Of Digital Marketing Relationship Specialty Start Date End Date Sandro Price NP [address] [place] [address] PCP - General Nurse Practitioner 02/09/23 Additional Source Comments The information contained in this document represents components of the legal health record. It is not the complete legal health record.[facility]
--- OUTSIDE RECORDS SUMMARY | 2025-04-17 12:57 | XMS_ITS | Encounter Summary ---
Author Organization [facility] Address [address] [place] [address] Phone Care Team Providers Care Revival Clerk Name Role Phone Sandro Price FRUIT DUMPER Primary Care Provider [phone] Encounter Details Date Type Department Care Team (Late st Contact Info) Description 11/23/2024 Procedure Pass [facility], [address] [address] Social History Tobacco Use Types Packs/Day Years Used Date Smoking Tobacco: Former Cigarettes Smokeless Tobacco: Never Alcohol Use Standard Drinks/Week [...] Description 10/23/2025 11:00 AM EDT Office Visit [facility], Department of Neurology [address] [place] [address] Yany Edmond MD [address] [place] [address] [email or web address] documented as of this encounter Visit Diagnoses Not on filedocumented in this encounter Care Teams Revival Clerk Relationship Specialty Start Date End Date Sandro Price NP [address] [place] [address] PCP - General Nurse Practitioner 02/09/23 documented as of this encounter Additional Source Comments The information contained in this document represents components of the legal health record. It is not the complete legal health record.[facility]
--- OUTSIDE RECORDS SUMMARY | 2025-04-17 12:57 | XMS_ITS | Encounter Summary ---
Author Organization [facility] Address [address] [place] [address] Phone Care Team Providers Care News Videotape Editor Name Role Phone Belen Oviedo MD Primary Care Provider [phone] Sandro Price NP Primary Care Provider [phone] Encounter Details Date Type Department Care Team (Late st Contact Info) Description 01/10/2021 Procedure Pass [facility], Ct Scan - [address] [address] Social History Tobacco Use Types Packs/Day Years [...] 10/23/2025 11:00 AM EDT Office Visit [facility], Department of Neurology [address] [place] [address] Yany Edmond MD [address] [place] [address] [email or web address] documented as of this encounter Visit Diagnoses Not on filedocumented in this encounter Additional Health Concerns Infection Onset Date Last Indicated Resolved Time CoV-Exposed Comment:Exposed by staff on 06/26/21 06/26/2021 07/04/202112/2020 1:22 AM EST documented as of this encounter Care Teams News Videotape Editor Relationship Specialty Start Date End Date Belen Oviedo MD [facility] [place] [address] PCP - General 10/31/20 02/08/23 Sandro Price NP [address] [place] [address] [place] [address] PCP - General Nurse Practitioner 02/09/23 documented as of this encounter Additional Source Comments The information contained in this document represents components of the legal health record. It is not the complete legal health record.[facility]
== END 2025-04-17 11:07 | disposition home or self-care (01) ==
LOC: HO.HMCFM 09:58
PROVIDERS: PCP Nurse Practitioner Family; Visit Provider Nurse Practitioner Family
DX: Z00.00 Encounter for general adult medical examination without abnormal findings (principal); R09.81 Nasal congestion; E66.9 Obesity, unspecified; Z68.33 Body mass index [BMI] 33.0-33.9, adult

== ENCOUNTER 2025-06-08 15:32 | Outpatient (AMB) | payer OTHER, SELFPAY ==
--- NOTE | 2025-06-08 15:28 | MHC.PC.OV ---
Intake Visit Reasons: Tele 2-4 wks labs review Intake Note: patient here for 2-4 wks follow up on labs review Allergist/Md Required: No Is last menstrual period known: Yes Last menstrual period: 05/23/25 Post menopausal: No Patient : No Allergies penicillin V Allergy (Unknown, Verified 06/08/25 15:29) hives paroxetine (Paxil) Adverse Reaction (Unknown, Verified 06/08/25 15:29) anorgasmia Tobacco use date assessed: 06/08/25 Dental Screening Dental Screen Date: 06/08/25 Did you have a dental visit in the last 12 months?: No Did you have a dental problem in the last 6 months where you did not have access to dental care?: No Was dental information given to patient?: No HPI HPI Comments History of Present Illness Details 34-year-old female presents for a telehealth visit for review of recent lab results. Her aunt is present with patient and involved in the visit. No acute symptoms at this time. [facility] Medical History Psoriasis Generalized headaches Surgical History Hx of tonsillectomy Family History Father No problems noted. Mother Asthma Maternal Grandfather CVD (cardiovascular disease) Brother No problems noted. Brother No problems noted. Brother No problems noted. Brother No problems noted. Social History Household Members: Family Caregiver staying overnight: Yes Housing: Other Housing Other:: [facility] Are you a primary grounds caretaker to a significant other at home: No Do you presently have visiting nurse or other home services: No 75 years or older and lives alone: No Alcohol intake: never Patient Tobacco Use Status: Former Tobacco user e-Cigarette/Vaping Use: Never Used Second Hand Smoke Exposure: No Special kaylan needs: No Agree to transfusion: Yes service: No Current occupational status: disabled Current occupational exposures/hazards: No Sexual orientation: Straight/Heterosexual Gender identity: Female Cognitive needs: No Hearing needs: No Vision needs: No Female Reproductive History Menstrual Date of last menstrual period: 05/23/25 Questionnaire Thrive Questionnaire Date Thrive assessed: 04/17/25 TONYA-7 AMB Questionnaire TONYA-7 Date TONYA - 7 assessed: 04/17/25 Source: Developed by Drs. Trey Contreras, Lyly Kang, Steve Canchola and colleagues, with an educational jose from [employer]. Review of Systems Const Details: Denies chills, Denies fatigue, Denies fever(s), Denies headache(s) and Denies weakness Cardiac Denies chest pain, Denies claudication, Denies leg edema, Denies lightheadedness, Denies palpitations, Denies dyspnea, Denies dyspnea on exertion, Denies orthopnea and Denies other (Loss of consciousness) Resp Denies cough, Denies excessive phlegm production, Denies dyspnea, Denies dyspnea on exertion, Denies snoring and Denies wheezing Physical exam (Primary Care) Tobacco/Smoking Status: Tobacco use Status Tobacco use date assessed 06/08/25 06/08/25 15:30 Patient Tobacco Use Status Former Tobacco user 06/08/25 15:30 e-Cigarette/Vaping Use Never Used 06/08/25 15:30 Thrive Assessment: Date of Thrive Assessment Date Thrive assessed 04/17/25 06/08/25 15:30 Const Other: Patient is alert and orient x4 Telehealth Telehealth Telehealth Platform: Telephone Location of provider rendering services: practice address Location of patient: address on file Patient Identification confirmed using: Name, : Yes Telehealth method: voice only Patient verbally consented to treatment: Yes Patient verbally consented to billing insurance company: Yes Patient informed of any privacy concerns related to visit: Yes Coding Level of Care Code Tele Est Pt Level 3 (15121) Diagnoses Hypercholesterolemia E78.00 Obesity (BMI 30-39.9) E66.9 Vitamin D deficiency E55.9 Time Spent (min) 20 Assessment & Plan Assessment & Plan (1) Hypercholesterolemia: Code(s): E78.00 - Pure hypercholesterolemia, unspecified Category: Medical Plan: Recent total cholesterol and LDL levels are elevated, 249 and 158 respectively. Diet and/clozapine may be a factor. Atorvastatin 10 mg daily ordered; advised to take as prescribed. Instructed on the risks, benefits, and potential adverse reactions of the medication. Advised to limit foods high in saturated fat and avoid foods high in trans fat. Routine exercise encouraged. Perform fasting blood work in 2 months and follow-up with PCP. She has a transfer of care scheduled next month with Dr. Mckeon. (2) Obesity (BMI 30-39.9): Code(s): E66.9 - Obesity, unspecified Category: Medical Plan: Diet and/clozapine may be a factor. Metformin 500 mg daily ordered; advised to take as prescribed. Instructed on the risks, benefits, and potential adverse reactions of the medication. Healthy diet/weight management encouraged. Follow-up with PCP as planned. Verbalized understanding and agreed with the plan. (3) Vitamin D deficiency: Code(s): E55.9 - Vitamin D deficiency, unspecified Category: Medical Plan: Recent vitamin-D level is low, 23.9. Vitamin D3 25 mcg daily ordered; advised to take as prescribed. Perform vitamin D blood work in 2 months and follow-up with PCP. Verbalized understanding and agreed with the plan. Orders: Orders Lipid Panel 2 Months E78.00 - Pure hypercholesterolemia, unspecified Vitamin D 25-OH Total 2 Months E55.9 - Vitamin D deficiency, unspecified Medications: New cholecalciferol (vitamin D3) 25 mcg PO DAILY 30 tabs 3RF 30 days atorvastatin (Lipitor) 10 mg PO BEDTIME 30 tabs 3RF 30 days metformin 500 mg PO DAILY 30 tabs 3RF 30 days
--- OUTSIDE RECORDS SUMMARY | 2025-06-08 16:35 | XMS_ITS | Encounter Summary ---
Author Organization [facility] Address [address] [place] [phone] Phone Care Team Providers Care Horticulture Teacher Name Role Phone Belen Oviedo MD Primary Care Provider [phone] Sandro Price NP Primary Care Provider [phone] Encounter Details Date Type Department Care Team (Late st Contact Info) Description 01/17/2021 Procedure Pass [address] [address] Social History Tobacco Use Types Packs/Day Years [...] Description 10/23/2025 11:00 AM EDT Office Visit [facility], Department of Neurology [address] [place] [address] Yany Edmond MD [address] [place] [address] [email or web address] documented as of this encounter Visit Diagnoses Not on filedocumented in this encounter Additional Health Concerns Infection Onset Date Last Indicated Resolved Time CoV-Exposed Comment:Exposed by staff on 06/26/21 06/26/2021 07/04/202112/2020 1:22 AM EST documented as of this encounter Care Teams Horticulture Teacher Relationship Specialty Start Date End Date Belen Oviedo MD [address] [place] [address] PCP - General 10/31/20 02/08/23 Sandro Price NP [address] [place] [address] PCP - General Nurse Practitioner 02/09/23 documented as of this encounter Additional Source Comments The information contained in this document represents components of the legal health record. It is not the complete legal health record.[facility]
--- OUTSIDE RECORDS SUMMARY | 2025-06-08 16:35 | XMS_ITS | Encounter Summary ---
Author Organization [facility] Address [address] [address] Phone Care Team Providers Care Patient Financial Rep Name Role Phone Sandro Price CLINICAL RN MANAGER Primary Care Provider [phone] Encounter Details Date Type Department Care Team (Late st Contact Info) Description 11/23/2024 Procedure Pass [facility], [address] [address] Social History Tobacco Use Types Packs/Day Years Used Date Smoking Tobacco: Former Cigarettes Smokeless Tobacco: Never Alcohol Use Standard Drinks/Week Comments Not Currently 0 (1 standard drink = 0.6 oz pur e alcohol) Education Answer Date Recorded Are you interested in more education? Not on jcakeline e 11/27/2022 Are you concerned about learning? [...] Description 10/23/2025 11:00 AM EDT Office Visit [facility], Department of Neurology [address] [place] [address] Yany Edmond MD [address] [place] [address] [email or web address] documented as of this encounter Visit Diagnoses Not on filedocumented in this encounter Care Teams Patient Financial Rep Relationship Specialty Start Date End Date Sandro Price NP [address] [place] [address] PCP - General Nurse Practitioner 02/09/23 documented as of this encounter Additional Source Comments The information contained in this document represents components of the legal health record. It is not the complete legal health record.[facility]
--- OUTSIDE RECORDS SUMMARY | 2025-06-08 16:35 | XMS_ITS | Clinical Summary ---
Author Organization [facility] Address [address] [address] Phone Care Team Providers Care Certified Flex Endoscope Reprocessor Name Role Phone Sandro Price FLARING MACHINE OPERATOR Primary Care Provider [phone] Allergies Active Allergy Reactions Criticality Noted Date [...] 03/14/2025 11:59 PM EDT Hospital Encounter [facility] [address] [place], [place] [address] Carl Whitley, DAYA Discharge Disposition: Home or Self Care from [...] Description 10/23/2025 11:00 AM EDT Office Visit [facility], Department of Neurology [address] [place] [address] Yany Edmond MD [address] [place] [address] [email or web address] Health Maintenance Due Date Last Done Comments SMOKING Hx and SMOKELESS TOBACCO SCREENING 2001 HEPATITIS C SCREENING 2006 HIV ONE-TIME SCREENING (18-65 YEARS) 2006 PAP SMEAR 2009 Adult Td,Tdap Booster 10/04/2023 10/03/2013 TSH LEVEL 02/17/2024 02/16/2023, 05/17/2021 ABSOLUTE NEUTROPHIL COUNT (ANC) 02/07/2025 01/10/2025, 11/23/2024, 09/12/2024, Additional history exists INFLUENZA VACCINE (#1) 2025 COVID-19 VACCINE (2 - season) 2025 07/31/2021 DEPRESSION SCREENING 11/23/2025 11/23/2024 CREATININE LEVEL 03/14/2026 03/14/2025, , 06/22/2024, Additional history exists LITHIUM LEVEL 03/14/2026 03/14/2025, 0410/2024, 06/22/2024 SCREENING FOR DIABETES 03/14/2028 03/14/2025 HEPATITIS [...] Date/Time Associated Diagnosis Comments BASIC METABOLIC PANEL (BMP) Routine 03/14/2025 8:25 AM EDT Diagnosis unknown [...] EDT Routine general medical examination at a health care facility from Last 3 Months or Most Recently Relevant to Health Maintenance Results * (ABNORMAL) Clozapine level (03/14/2025 8:25 AM EDT) CLOZAPINE 1,370(H) 350 - 600 ng/mL [facility] NORCLOZAPINE 446 Not well established ng/mL [facility] CLOZ/NORCLOZ TOTAL 1,816 Not well established ng/mL [facility] Comment: (NOTE) ADDITIONAL INFORMATION This test was developed and its performance characteristics determined by [facility] in a manner consistent with CLIA requirements. This test has not been cleared or approved by the U.S. Food and Drug Administration. Blood 03/14/2025 8:25 AM EDT 03/14/2025 8:32 AM EDT Carl Whitley NP LAB BLOOD ORDERABLES Final Result [facility] [address] [place] [address] * Lamotrigine level (03/14/2025 8:25 AM EDT) LAMOTRIGINE 5.5 4.0 - 18.0 mcg/mL [facility] Comment:This test was develo ped and its performance characteristics determined by the [facility]. It has not been cleared or approved by the US Food and Drug Administration. This laboratory is certified under CLIA as qualified to perform high complexity clinical laboratory testing. Blood 03/14/2025 8:25 AM EDT 03/14/2025 8:32 AM EDT Carl Whitley NP LAB BLOOD BKR ORDERA BLES Final Result Performing Organization Address [facility]/ZIP Co de Phone Number [facility] [address] [place] [address] * (ABNORMAL) [place] level (03/14/2025 8:25 AM EDT) LITHIUM 0.25(L) 0.5 - 1.00 mmol/L [facility] Blood 03/14/2025 8:25 AM EDT 03/14/2025 8:32 AM EDT Carl Whitley FLARING MACHINE OPERATOR LAB BLOOD BKR ORDERA BLES Final Result Performing Organization Address City/[facility]/ZIP Co de Phone Number [facility] [address] [place] [address] * (ABNORMAL) Basic metabolic panel (03/14/2025 8:25 AM EDT) SODIUM 139 133 - 146 mmol/L [facility] CHLORIDE 105 96 - 108 mmol/L [facility] POTASSIUM 4.0 3.3 - 5.1 mmol/L [facility] CO2 23 21 - 35 mmol/L [facility] BUN 10 6 - 19 mg/dL [facility] CREATININE 0.90 0.5 - 1.5 mg/dL [facility] GLUCOSE 109(H) 70 - 99 mg/dL [facility] CALCIUM 8.9 8.4 - 10.3 mg/dL [facility] EGFR 85 >59 mL/min/1.7 3m2 [facility] Comment:Estimated glomerular filtration rate calculated using the CKD-EPI refit equation. ANION GAP 15 10 - 20 mmol/L [facility] Blood 03/14/2025 8:25 AM EDT 03/14/2025 8:32 AM EDT Carl Whitley FLARING MACHINE OPERATOR LAB BLOOD BKR ORDERA BLES Final Result [facility] [address] [place] [address] * (ABNORMAL) CBC and differential (01/10/2025 8:33 AM EDT) WBC 7.19 4.00 - 11.00 K/uL [facility] RBC 4.18 4.00 - 5.20 M/uL [facility] HGB 11.5(L) 12.0 - 16.0 g/dL [facility] HCT 38.1 36.0 - 46.0 % [facility] PLT 297 150 - 450 K/uL [facility] MCV 91.1 80.0 - 100.0 fL [facility] MCH 27.5 27.0 - 31.0 pg [facility] MCHC 30.2(L) 32.0 - 36.0 g/dL [facility] RDW 14.6(H) 11.5 - 14.5 % [facility] MPV 10.5 8.4 - 12.0 fL [facility] NRBC 0.00 0.00 /100 WBCs [facility] ABSOLUTE NRBC 0.00 0.00 K/uL [facility] DIFF METHOD Auto [facility] NEUTS 58.0 48.0 - 76.0 % [facility] LYMPHS 28.2 18.0 - 41.0 % [facility] MONOS 7.6 4.0 - 11.0 % [facility] EOS 5.1(H) 0.0 - 5.0 % [facility] BASOS 0.8 0.0 - 1.5 % [facility] Granulocytes, immature (%) 0.3 0.0 - 0.9 % [facility] ABSOLUTE NEUTS 4.16 1.92 - 7.60 K/uL [facility] ABSOLUTE LYMPHS 2.03 0.72 - 4.10 K/uL [facility] ABSOLUTE MONOS 0.55 0.16 - 1.10 K/uL [facility] ABSOLUTE EOS 0.37 0.00 - 0.50 K/uL [facility] ABSOLUTE BASOS 0.06 0.00 - 0.15 K/uL [facility] Granulocytes, immature 0.02 0.00 - 0.09 K/uL [facility] Blood 01/10/2025 8:33 AM EDT 01/10/2025 8:37 AM EDT us Karin Linn MD LAB BLOOD BKR ORDERABL ES Final Result [address] [address] * TSH with reflex (02/16/2023 7:42 AM EDT) TSH 3.31 0.27 - 4.20 uIU/mL [facility] Blood 02/16/2023 7:42 AM EDT 02/16/2023 7:47 AM EDT us Sandro Price NP LAB BLOOD BKR ORDERABLES F inal Result [address] [address] from Last 3 Months or Most Recently Relevant to Health Maintenance Insurance ACO ACO ACO ACO ACO ACO ACO ACO ACO Advance Directives For more information, please contact: [phone] (9AM - 5PM [place], Wednesday-Wednesday) * Full [...] Code Status Confirmed With: Patient Care Teams Certified Flex Endoscope Reprocessor Relationship Specialty Start Date End Date Sandro Price NP [address] [place] [address] PCP - General Nurse Practitioner 02/09/23 Additional Source Comments The information contained in this document represents components of the legal health record. It is not the complete legal health record.[facility]
--- OUTSIDE RECORDS SUMMARY | 2025-06-08 16:35 | XMS_ITS | Encounter Summary ---
Author Organization [facility] Address [address] [place] [address] Phone Care Team Providers Care Pull Socket Assembler Name Role Phone Belen Oviedo MD Primary Care Provider [phone] Sandro Price NP Primary Care Provider [phone] Encounter Details Date Type Department Care Team (Late st Contact Info) Description 01/10/2021 Procedure Pass [facility], Ct Scan - [address] [address] Social History Tobacco Use Types Packs/Day Years [...] Description 10/23/2025 11:00 AM EDT Office Visit [facility], Department of Neurology [address] [place] [address] Yany Edmond MD [address] [place] [address] [email or web address] documented as of this encounter Visit Diagnoses Not on filedocumented in this encounter Additional Health Concerns Infection Onset Date Last Indicated Resolved Time CoV-Exposed Comment:Exposed by staff on 06/26/21 06/26/2021 07/04/202112/2020 1:22 AM EST documented as of this encounter Care Teams Pull Socket Assembler Relationship Specialty Start Date End Date Belen Oviedo MD [address] [place] [address] PCP - General 10/31/20 02/08/23 Sandro Price NP [address] [place] [address] PCP - General Nurse Practitioner 02/09/23 documented as of this encounter Additional Source Comments The information contained in this document represents components of the legal health record. It is not the complete legal health record.[facility]
== END 2025-06-08 15:52 | disposition home or self-care (01) ==
LOC: HO.HMCFM 15:32
PROVIDERS: PCP Nurse Practitioner Family; Visit Provider Nurse Practitioner Family
DX: E78.00 Pure hypercholesterolemia, unspecified (principal); E66.9 Obesity, unspecified; E55.9 Vitamin D deficiency, unspecified

== ENCOUNTER 2025-06-25 12:32 | Outpatient (AMB) | payer OTHER, SELFPAY ==
--- NOTE | 2025-06-25 12:40 | MHC.PC.OV ---
Vital Signs 06/25/25 12:51 06/25/25 13:20 Height 5 ft 3 in Weight 176 lb 4 oz BMI 31.2 BP 94/50 L 90/60 Blood Pressure Location Rt brachial Rt brachial Position Sitting Sitting Respiration 16 Pulse 97 Pulse Source Pulse Oximeter Temp 98.1 F Temp Source Oral Pulse Oximetry (%) 95 Oxygen Delivery Method Room Air Intake Visit Reasons: Hospital D/C F/U from [facility] Intake Note: patient here for HDF from [facility] Slot Key Person Required: No Accompanied by: Aunt Is last menstrual period known: Yes Last menstrual period: 06/18/25 Post menopausal: No Patient : No Allergies penicillin V Allergy (Unknown, Verified 06/25/25 13:33) hives paroxetine (Paxil) Adverse Reaction (Unknown, Verified 06/25/25 13:33) anorgasmia Medication List - Last Reconciled 06/25/25 by Sandro Price CNP acetaminophen ER 650 mg PO DAILY atorvastatin (Lipitor) 10 mg PO BEDTIME 30 days cholecalciferol (vitamin D3) 25 mcg PO DAILY 30 days dextroamphetamine-amphetamine 25 mg ER (Adderall XR) 25 mg PO BID fluoxetine (Prozac) 80 mg PO BEDTIME fluticasone propionate 50 mcg/actuation (Flonase Allergy Relief) 2 sprays intranasal DAILY glycopyrrolate 3 mg PO BID lamotrigine ER (Lamictal XR) 300 mg PO DAILY loratadine (Claritin) 10 mg PO DAILY 90 days metformin 500 mg PO DAILY 30 days naproxen 500 mg PO BID PRN paliperidone ER 3 mg PO BEDTIME Tobacco use date assessed: 06/25/25 Dental Screening Dental Screen Date: 06/25/25 Did you have a dental visit in the last 12 months?: No Did you have a dental problem in the last 6 months where you did not have access to dental care?: No Was dental information given to patient?: Patient has dentist HPI HPI Comments History of Present Illness Details 34-year-old female, accompanied by her aunt, presents for hospital follow-up visit. She was evaluated and treated at [facility] between 06/10/2025 and 06/18/2025 for pneumatosis and significant dilatation of the bowel (revealed by CT). She presented with abdominal pain. She underwent laparoscopic exploratory laparotomy; bowel was evaluated and all evaluated areas appeared viable per operative report. She recovered in PACU and was transferred to the ICU for ongoing close monitoring. The patient continued to have severe colonic dilatation and abdominal distention. She was given a bowel regimen without much success. GI was consulted and recommended changing her psychiatric medications. She was on Clozaril which is associated with colonic dysmotility. Psychiatry was consulted and recommended stopping the Clozaril. She has been transitioned to Invega. The patient had ongoing colonic distention. She was given GoLYTELY and had several large bowel movements with improvement in the distention. GI recommended follow-up as an outpatient and the colonoscopy. Exam improving bottle function daily back to normal. Today's visit: She notees that she has not had an abdominal pain or symptoms since her discharged from the hospital on 06/18/2025. She has been taking her medications as prescribed without adverse reactions. No acute symptoms at this time. Her aunt notes that the plan is for the patient to follow up with [facility] Gastroenterology. Patients aunt to call and schedule GI appotintment. REPLACED BY [facility] Medical History Psoriasis Generalized headaches Surgical History Hx of tonsillectomy Family History Father No problems noted. Mother Asthma Maternal Grandfather CVD (cardiovascular disease) Brother No problems noted. Brother No problems noted. Brother No problems noted. Brother No problems noted. Social History Household Members: Family Caregiver staying overnight: Yes Housing: Other Housing Other:: [facility] Are you a primary acute care physical therapist to a significant other at home: No Do you presently have visiting nurse or other home services: No 75 years or older and lives alone: No Alcohol intake: never Patient Tobacco Use Status: Former Tobacco user e-Cigarette/Vaping Use: Never Used Second Hand Smoke Exposure: No Special kaylan needs: No Agree to transfusion: Yes Patient : No service: No Current occupational status: disabled Current occupational exposures/hazards: No Sexual orientation: Straight/Heterosexual Gender identity: Female Cognitive needs: No Hearing needs: No Vision needs: No Female Reproductive History Menstrual Date of last menstrual period: 06/18/25 Questionnaire Thrive Questionnaire Date Thrive assessed: 04/17/25 I am a: Patient What is your living situation today?: I have a steady place to live Within the past 12 months, did the food you bought not last and you didn't have the money to get more?: Never true Within the past 12 months, did you worry whether your food would run out before you got money to buy more?: Never true Do you have trouble paying for medicines?: No Do you have trouble getting transportation to medical appointments?: No Do you have trouble paying your heating and electricity bill?: No Do you have trouble taking care of your child, family member or friend?: No Do you have trouble with day-to-day activities such as bathing, preparing meals, shopping, managing finances, etc.?: No Are you currently unemployed and looking for a job?: No Are you interested in more education?: Yes Please select the resources that you would like help with: None Currently or been in a relationship where the following occur: No concerns reported THRIVE Score: 0 TONYA-7 AMB Questionnaire TONYA-7 Date TONYA - 7 assessed: 04/17/25 Source: Developed by Drs. Trey Contreras, yLly Kang, Steve Canchola and colleagues, with an educational jose from [employer]. Review of Systems Const Details: Const Denies chills, Denies fatigue, Denies fever(s), Denies headache(s) and Denies weakness ENT Denies dizziness and Denies headache(s) Card Denies chest pain, Denies lightheadedness, Denies dyspnea and Denies other (Palpitations) Resp Denies cough, Denies dyspnea, Denies wheezing and Denies other ( shortness of breath) GI Denies abdominal pain, Denies melena, Denies hematochezia, Denies change in bowel habits, Denies dyspepsia and Denies nausea Denies hematuria and Denies dysuria Musc Denies abnormal gait, Denies myalgias, Denies arthralgias, Denies numbness and Denies tingling Skin/Breast Denies rash, Denies unusual bruising and Denies wounds Neuro Denies abnormal gait, Denies dizziness, Denies headache(s), Denies memory loss, Denies numbness, Denies Sensory deficit (Neuro), Denies tingling and Denies weakness Psych Denies anxiety, Denies depression, Denies memory loss Endo Denies cold intolerance, Denies fatigue, Denies heat intolerance, Denies polydipsia and Denies polyuria Aller/Immun Denies wheezing Physical exam (Primary Care) Vital Signs: Last Vital Signs Temp 98.1 F 06/25/25 12:51 Pulse 97 06/25/25 12:51 Resp 16 06/25/25 12:51 BP 94/50 L 06/25/25 12:51 Pulse Ox 95 06/25/25 12:51 Oxygen Delivery Method Room Air 06/25/25 12:51 BMI result Body Mass Index 31.2 Tobacco/Smoking Status: Tobacco use Status Tobacco use date assessed 06/25/25 06/25/25 12:54 Patient Tobacco Use Status Former Tobacco user 06/25/25 12:42 e-Cigarette/Vaping Use Never Used 06/25/25 12:42 Thrive Assessment: Date of Thrive Assessment Date Thrive assessed 04/17/25 06/25/25 12:42 Currently or been in a relationship where the following occur: No concerns reported Const Other: General: no acute distress and well developed Nutritional Appearance: well nourished Orientation/consciousness: patient oriented x3 HENMT Head: Yes normocephalic and Yes atraumatic Eyes General: appearance normal, both eyes and all related structures Pupils: Equal, round and reactive pupils present EOM: EOMs intact bilaterally Resp Effort & Inspection: normal respiratory effort Auscultation: clear to auscultation bilaterally Cardio Rate: regular rate Rhythm: regular rhythm Heart sounds: S1 normal heart sound present, S2 normal heart sound present, no gallops, no murmurs and no rubs GI Palpation (GI): No Abdominal aortic bruit present, Soft to palpation, nontender, No hepatosplenomegaly present and No Rebound tenderness present Auscultation: normal bowel sounds General: Yes no CVA tenderness Back/Spine/Pelvis Back: no CVA tenderness Cervical Spine: cervical ROM normal and No Cervical spine tenderness Thoracic/Lumbar Spine: thoraco-lumbar ROM normal, No pain with thoraco-lumbar ROM, No thoracic spinal tenderness and No lumbar spinal tenderness Extrem General: Yes normal to inspection, No edema and No calf tenderness Skin General: warm and dry. Normal skin color. Normal skin turgor Neuro General: patient oriented x3, gait normal and no focal neuro deficit Cranial nerves: Yes Equal, round and reactive pupils present Cognition (Neuro): normal cognition Gait exam (Neuro): Normal gait present Sensory Exam: No Sensory deficit (Neuro) Psych Appearance: grossly normal Affect: normal affect Attitude: cooperative Thought process: Normal thought process present Coding Level of Care Code Est Pt Level 3 (01059) Diagnoses Abdominal pain R10.9 Hospital discharge follow-up Z51.89 Assessment & Plan Assessment & Plan (1) Abdominal pain: Code(s): R10.9 - Unspecified abdominal pain Category: Medical Plan: Resolved. Continue current treatment regimen. Follow-up with Gastroenterology as planned. Schedule a transfer of care follow-up visit with a new provider within the practice. Return sooner with symptoms or concerns. Verbalized understanding and agreed with the plan. (2) Hospital discharge follow-up: Code(s): Z51.89 - Encounter for other specified aftercare Category: Medical Plan: Plan as above.
[2025-06-25 12:51] VITALS: BP 94/50; PULSE 97; RESP 16; TEMP 36.7; O2SAT 95; BMI 31.2
[2025-06-25 13:20] VITALS: BP 90/60
== END 2025-06-25 13:34 | disposition home or self-care (01) ==
LOC: HO.HMCFM 12:33
PROVIDERS: PCP Nurse Practitioner Family; Visit Provider Nurse Practitioner Family
DX: R10.9 Unspecified abdominal pain (principal); Z51.89 Encounter for other specified aftercare

== ENCOUNTER → 2025-06-25 12:32 | Outpatient (BNVA) | payer OTHER, SELFPAY | PROVIDERS: PCP Nurse Practitioner Family; Visit Provider Nurse Practitioner Family | DX: R10.9 Unspecified abdominal pain (principal); Z51.89 Encounter for other specified aftercare | CPT/HCPCS: 99212 ==

== ENCOUNTER 2025-07-17 14:40 | Outpatient (AMB) | payer OTHER, SELFPAY ==
[2025-07-17 14:43] VITALS: BP 104/64; PULSE 95; RESP 14; O2SAT 97; BMI 27.9
--- NOTE | 2025-07-17 14:43 | A.OFFPC_ITS ---
Vital Signs 07/17/25 14:43 Height 5 ft 3 in Weight 157 lb 6 oz BMI 27.9 BP 104/64 Blood Pressure Location Lt brachial Position Sitting Respiration 14 Pulse 95 Pulse Source Pulse Oximeter Pulse Oximetry (%) 97 Oxygen Delivery Method Room Air Intake Visit Reasons: shannan from [facility] Intake Note: Transfer of care Revenue Director Required: No Accompanied by: Aunt Allergies penicillin V Allergy (Unknown, Verified 07/17/25 14:45) hives paroxetine (Paxil) Adverse Reaction (Unknown, Verified 07/17/25 14:45) anorgasmia Tobacco use date assessed: 07/17/25 Dental Screening Dental Screen Date: 06/25/25 HPI HPI Comments History of Present Illness Details 34-year-old female with a past medical h istory of ADD, schizoaffective disorder, hyperlipidemia, left ankle sprain, psoriasis, leukocytosis, presenting to [facility]. BH: On adderall, prozac, lamictal, paliperidone. Hospitalized in June for colonic dilatation and abdominal distention. Clozaril was transitioned to Invega. She follows with psychiatrist at [facility] every 3 months. Sees neurology at [facility] She has continued issues with bowel movements. She is going everyday but very little. She feels they are no where near complete. She has a GI appt scheduled for September. Will add magnesium hydroxide today, if not effective then memo She is on metformin for weight management. She has been losing weight and potentially this could be stopped - Last eye exam was several years ago. R eferred to Ophthalmology - Last dental visit was several years ag o; encouraged to schedule an appointment with his dentist for routine dental care. - Last Tdap was in 10/03/2013 - Referral in place to [facility] ROS CONSTITUTIONAL: Denies weight loss, fever and chills. HEENT: Denies changes in vision and hearing. RESPIRATORY: Denies SOB and cough. CV: Denies palpitations and CP GI: Denies abdominal pain, nausea, vomiting and diarrhea. : Denies dysuria and urinary frequency. MSK: Denies new myalgia and joint pain. SKIN: Denies rash and pruritus. NEUROLOGICAL: Denies headache PSYCHIATRIC: Denies recent changes in mood. PHYSICAL EXAM: GENERAL: Alert and oriented x 3. NAD EYES: EOMI. Anicteric. HENT: Moist mucous membranes. No scleral icterus. No cervical lymphadenopathy. LUNGS: Clear to auscultation bilaterally. CARDIOVASCULAR: Regular rate and rhythm. No murmur. No JVD. ABDOMEN: Soft, non-tender +bs EXTREMITIES: No edema. Non-tender. SKIN: No rashes or lesions. Warm. NEUROLOGIC: No focal neurological deficits. CN II-XII grossly intact PSYCHIATRIC: Cooperative. Appropriate mood and affect [facility] Medical History Psoriasis Generalized headaches Surgical History Hx of tonsillectomy Family History Father No problems noted. Mother Asthma Maternal Grandfather CVD (cardiovascular disease) Brother No problems noted. Brother No problems noted. Brother No problems noted. Brother No problems noted. Social History Household Members: Family Caregiver staying overnight: Yes Housing: Other [email or web address] Are you a primary career consultant to a significant other at home: No Do you presently have visiting nurse or other home services: No 75 years or older and lives alone: No Alcohol intake: never Patient Tobacco Use Status: Former Tobacco user e-Cigarette/Vaping Use: Never Used Second Hand Smoke Exposure: No Special kaylan needs: No Agree to transfusion: Yes service: No Current occupational status: disabled Current occupational exposures/hazards: No Sexual orientation: Straight/Heterosexual Gender identity: Female Cognitive needs: No Hearing needs: No Vision needs: No Questionnaire Thrive Questionnaire Date Thrive assessed: 04/17/25 I am a: Patient What is your living situation today?: I have a steady place to live Within the past 12 months, did the food you bought not last and you didn't have the money to get more?: Never true Within the past 12 months, did you worry whether your food would run out before you got money to buy more?: Never true Do you have trouble paying for medicines?: No Do you have trouble getting transportation to medical appointments?: No Do you have trouble paying your heating and electricity bill?: No Do you have trouble taking care of your child, family member or friend?: No Do you have trouble with day-to-day activities such as bathing, preparing meals, shopping, managing finances, etc.?: No Are you currently unemployed and looking for a job?: No Are you interested in more education?: Yes Please select the resources that you would like help with: None Currently or been in a relationship where the following occur: No concerns reported THRIVE Score: 0 AUDIT C Alcohol Use Questionnaire (AUDIT-C) 1. How often do you have a drink containing alcohol?: Never 3. How often do you have six or more drinks on one occasion?: Never Total Score: 0 TONYA-7 AMB Questionnaire TONYA-7 Date TONYA - 7 assessed: 04/17/25 Source: Developed by Drs. Trey Contreras, Lyly Kang, Steve Canchola and colleagues, with an educational jose from [employer]. Physical exam (Primary Care) Vital Signs: Last Vital Signs Pulse 95 07/17/25 14:43 Resp 14 07/17/25 14:43 BP 104/64 07/17/25 14:43 Pulse Ox 97 07/17/25 14:43 Oxygen Delivery Method Room Air 07/17/25 14:43 BMI result Body Mass Index 27.9 Tobacco/Smoking Status: Tobacco use Status Tobacco use date assessed 06/25/25 07/17/25 14:47 Patient Tobacco Use Status Former Tobacco user 07/17/25 14:47 e-Cigarette/Vaping Use Never Used 07/17/25 14:47 Thrive Assessment: Date of Thrive Assessment Date Thrive assessed 04/17/25 07/17/25 14:47 Currently or been in a relationship where the following occur: No concerns reported Results AMB Hemoglobin A1c AMB Hemoglobin A1c 4.9 % Last Edit by Noelle Fitzpatrick CMA on 07/17/25 15:00 Coding Level of Care Code Est Pt Level 4 (22231) Diagnoses Constipation, unspecified constipation type K59.00 Constipation type: unspecified constipation type Schizoaffective disorder, bipolar type F25.0 Assessment & Plan Assessment & Plan (1) Constipation: Code(s): K59.00 - Constipation, unspecified Category: Medical Qualifiers: Constipation type: unspecified constipation type Qualified Code(s): K59.00 - Constipation, unspecified (2) Schizoaffective disorder, bipolar type: Code(s): F25.0 - Schizoaffective disorder, bipolar type Category: Medical Plan 34 year old to establish care past medical, surgical, social reviewed Constipation-Start magnesium hydroxide 400mg daily. Consider decreasing (psych) glycopyrrolate HLD-on statin ADD, bipolar stable on current medicaitons Orders: Orders AMB Hemoglobin A1c Today R73.09 - Other abnormal glucose Medications: New magnesium hydroxide 400 mg PO DAILY 90 tabs 3RF K59.00 - Constipation, unspecified
--- OUTSIDE RECORDS SUMMARY | 2025-07-17 18:55 | XMS_ITS | Encounter Summary ---
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 Name Role Phone Belen Oviedo MD Primary Care Provider [phone] Sandro Price NP Primary Care Provider [phone] Encounter Details Date Type Department Care Team (Late st Contact Info) Description 01/10/2021 Procedure Pass [facility], Ct Scan - [facility] [address] [place] [address] Social History Tobacco Use Types Packs/Day Years [...] Description 10/23/2025 11:00 AM EDT Office Visit [facility] Neu[facility] Movement Disorders [facility] [address] [place] [address] Yany Edmond MD [address] [place] [address] [email or web address] 10/24/2025 12:30 PM EDT Office Visit [facility] [address] [place] [address] Lyly Garza, PAULA [address] [address] [email or web address] documented as of this encounter Visit Diagnoses Not on filedocumented in this encounter Additional Health Concerns Infection Onset Date Last Indicated Resolved Time 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 Comment:Exposed by staff on 06/26/21 06/26/2021 07/04/2021 07/07/2021 1:[address] CDiff-Risk 06/11/2025 06/11/2025 06/11/2025 1:49 AM EST Noro-Risk 06/11/2025 06/12/2025 06/15/2025 10:2 4 PM EST documented as of this encounter Care Teams Water Reclamation Systems Operator Relationship Specialty Start Date End Date Belen Oviedo MD [address] [place] [address] PCP - General 10/31/20 02/08/23 Sandro Price NP [address] [place] [id number] PCP - General Nurse Practitioner 02/09/23 documented as of this encounter Additional Source Comments The information contained in this document represents components of the legal health record. It is not the complete legal health record.[facility]
--- OUTSIDE RECORDS SUMMARY | 2025-07-17 18:55 | XMS_ITS | Clinical Summary ---
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 dextroamphetam ine-amphetamin e (ADDERALL XR) 25 MG 24 hr capsuleIndicat ions:BRAND NAME ONLY MEDICALLY NECESSARY Take 1 capsule (25 mg total) by mouth 2 (two) times a day. Indications: BRAND NAME ONLY MEDICALLY NECESSARY 60 capsule 06/28/20 21 Active FLUoxetine (PROZAC) 40 MG capsule Take 80 mg by mouth daily. 12/01/19 24 Active acetaminophen (TYLENOL) 325 mg tablet Take 650 mg by mouth every 4 (four) hours as needed for pain (specific location in comments). Active lamoTRIgine (LAMICTAL) 150 MG IMMEDIATE release tablet Take 300 mg by mouth nightly at bedtime. 12/01/19 24 Active glycopyrrolate (ROBINUL) 1 mg tablet Take 1 mg by mouth nightly at bedtime. Also, takes gycopyrrolate 2 mg @ 0900 and 1500 12/28/19 24 Active loratadine (CLARITIN) 10 mg tablet Take 10 mg by mouth daily. 10/08/19 24 Active naproxen (EC NAPROSYN) 500 MG EC tablet Take 500 mg by mouth 2 (two) times a day as needed (pain). Active glycopyrrolate (ROBINUL) 1 mg tablet Take 2 mg by mouth 2 (two) times a day. The times are 0900 and 1500 Also takes glycopyrrolate 1 mg at bedtime Active metFORMIN (GLUCOPHAGE) 500 MG immediate release tablet Take 500 mg by mouth daily with breakfast. Active atorvastatin (LIPITOR) 10 MG tablet Take 10 mg by mouth nightly at bedtime. Active fluticasone propionate (FLONASE) 50 mcg/actuation nasal spray 2 sprays by Nasal route daily. Active paliperidone (INVEGA) 3 MG 24 hr tablet Take 1 tablet (3 mg total) by mouth daily. 30 tablet 06/19/20 25 Active cloZAPine (CLOZARIL) 100 MG tablet Take 300 mg by mouth nightly at bedtime. Taking with clozapine 50 mg @ 1800 11/12/19 24 025 Discontin ued(Stop Taking at Discharge ) benztropine (COGENTIN) 1 MG tablet Take 1 mg by mouth 2 (two) times a day. 025 Discontin ued(Stop Taking at Discharge ) cloZAPine (CLOZARIL) 50 MG tablet Take 50 mg by mouth daily. Timing of dose is 1800 daily Giving with clozapine 300 mg at bedtime 06/11/20 25 025 Discontin ued(Stop Taking at Discharge ) Active Problems Problem Noted Date Diagnosed Date Tachycardia 06/17/2025 Assessment & Plan (06/17/2025 5:48 PM EST): Sinus tach Possibly dehydration, pain Also may be SE of med, adderall Iso loose stool will treat with IVF 06/17 Assessment & Plan (06/17/2025 5:47 PM EST): Sinus tach Possibly dehydration, pain Also may be SE of med, adderall Iso loose stool will treat with IVF 06/17 Colitis 06/11/2025 Assessment & Plan (06/17/2025 5:48 PM EST): Proctocolitis with distention of the colon with air and a large amount of stool, dysmotility. S/p lap ex lap with viable bowel. Clinically improving. Had a bowel prep and passed stool. Clozaril discontinued. Clinically improving. Appreciate GI and Surgery input. --C/w bowel reg --Increase mobilization. --Follow abd exam --Will need GI f/u and colonoscopy in the future Assessment & Plan (06/17/2025 5:45 PM EST): Proctocolitis with distention of the colon with air and a large amount of stool, dysmotility. S/p lap ex lap with viable bowel. Clinically improving. Had a bowel prep and passed stool. Clozaril discontinued. Clinically improving. Appreciate GI and Surgery input. --C/w bowel reg --Increase mobilization. 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 The colon appeared viable. I removed her bandages and her incisions are clean and dry. She is significantly distended, her laboratory workup has been reviewed as above. She is now passing diarrheal movements. Her CT scan was notable for large amounts of stool within the colon. 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 GI is now following her, appreciate their expertise. Given her lactate is now normalized, WBC is improving, would not recommend further surgical intervention at this time. Though please reach out if she is to clinically worsen. In total, chart review, exam, discussion with patient and attending physician Dr. Glover took approximately 35 minutes. 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 The colon appeared viable. She is significantly distended, her laboratory workup has been reviewed as above. She is now passing diarrheal movements. Her CT scan was notable for large amounts of stool within the colon. She has never been constipated before. I discussed this with her guardian Jovana, who stated that she has not had any recent medication changes, nor diet changes that would contribute to such constipation. She is having bowel movements. Her stool samples are still pending. We will continue to follow this patient for any worsening for potential surgical intervention. Can continue clear liquid diet and bowel regimen. In total, chart review, exam, discussion with patient and attending physician Dr. Glover took approximately 35 minutes. Major depression, recurrent, chronic 06/06/2021 Schizoaffective disorder 11/02/2020 Assessment & Plan (06/17/2025 5:48 PM EST): Schizoaffective disorder, ADHD. Appears stable. Clozapine discontinued d/t colonic dysmotility and concern that it was contributing. Appears stable from Psych perspective. Appreciate Psych guidance. long-term unable to take her back over the weekend. --Invega to replace clozaril. Waldrop would need to be updated to include Lurasidone if a switch to that medication was needed in the future. No need for Cogentin at this time. Monitor for EPS sxs. --Continue usual Adderall and Lamictal Assessment & Plan (06/17/2025 5:45 PM EST): Schizoaffective disorder, ADHD. Appears stable. Clozapine discontinued d/t colonic dysmotility and concern that it was contributing. Appears stable from Psych perspective. Appreciate Psych guidance. long-term unable to take her back over the weekend. --Invega to replace clozaril. Waldrop would need to be updated to include Lurasidone if a switch to that medication was needed in the future. No need for Cogentin at this time. Monitor for EPS sxs. 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 Assessment & Plan (06/17/2025 5:48 PM EST): Assessment & Plan (06/17/2025 5:47 PM EST): Encounters Date Type Department Care Team Description 07/06/2025 10:15 AM EST Office Visit [address] [address] Bobby Huizar CNP Post-operative state (Primary Dx); S/P exploratory laparotomy 06/19/[address] [address] Verena Courtney RN Post op call 06/11/2025 9:22 AM EST Anesthesia Event OR Admitting Dept - Virtual Department [address] [place] [id number] Terrance Medina Jr., DO 06/11/2025 9:14 AM EST - 06/11/2025 12:33 PM EST Surgery OR Admitting Dept - Virtual Department [address] [place] [id number] Sadaf Glover MD Diagnostic Laparscopy 06/11/2025 Procedure Pass OR Admitting Dept - Virtual Department [address] [place] [address] 06/11/2025 Procedure Pass [facility], Ct Scan - [address] [address] 06/10/2025 11:32 PM EST - 06/18/2025 2:07 PM EST Hospital Encounter [facility] [address] [place] [id number] Refugio Mills DO Griffith, Andrew Thomas Liao, MD Arepally, Sandeep, MD Dumont, Charles A, MD, Carlos Rosas DO Barbosa-Kalpana Cook DO, MPH Isabelle Mcghee MD Discharge Disposition: Home or Self Care from [...] on file 11/27/2022 No 11/27/2022 No 11/27/2022 Food Answer Date Recorded Within the past 6 months we worried whether our food would run out before we got money to buy more. Unable to assess 025 Within the past 6 months the food we bought just didn't last and we didn't have enough money to get more. Unable to assess 06/12/2025 Residential Stability Answer Date Recor ded What is your housing situation today? I have dustin sing 06/12/2025 How many times have you move d in the past 12 months? Zero (I did not move) 06/12/2025 Paying for Meds Answer Date Recorded Do you have trouble paying for medicines? Unable to assess 06/12/2025 Paying Utility Bills Answer Date Record ed Do you have trouble paying y our heating or electricity bill? Unable to assess 06/12/2025 Transportation Answer Date Recorded Has the lack of transportati on kept you from medical appointments or from getting medications? Unable to assess 06/12/2025 Digital Access Answer Date Recorded No 06/12/2025 No 06/12/2025 Do you have reliable internet access at home? Un able to assess 06/12/2025 Do you have a device (e.g., phone, tablet, computer) with a working camera? Unable to assess 06/12/2025 Intimate Partner Violence Answer Date R ecorded Are you denied basic needs s uch as food, clothing, or medical care? No 06/11/2025 In the past 12 months have y ou been in a relationship with a person who hurts, threatens, or tries to control you? No 06/11/2025 Are you denied basic needs s uch as food, clothing, or medical care? No 06/11/2025 In the past 12 months have y ou been in a relationship with a person who hurts, threatens, or tries to control you? No 06/11/2025 Comments No Sex and Gender Information Value Date Recorded Sex Assigned at Female 11/01/2020 8:57 PM EDT Legal Sex Female 9:07 PM EDT Gender Identity Female 11/01/2020 8:57 PM EDT Sexual Orientation Straight 11/01/2020 8: 57 PM EDT Last Filed Vital Signs Vital Sign Reading Time Taken Comments Blood Pressure 108/52 07/06/2025 9:44 AM EST Pulse 90 07/06/2025 9:44 AM EST Temperature 36.3 C (97.3 F) 07/06/2025 9:44 AM EST Respiratory Rate 16 06/18/2025 7:20 AM EST Oxygen Saturation 95% 07/06/2025 9:44 AM EST Inhaled Oxygen Concentration - - Weight 77.2 kg (170 lb 3.2 oz) 07/06/2025 9:44 A M EST Height 160 cm (5' 3 ) 06/12/2025 1:00 PM EST Body Mass Index 30.15 06/12/2025 1:00 PM EST Plan of Treatment Upcoming Encounters Date Type Department Care Team (Late st Contact Info) Description 10/23/2025 11:00 AM EDT Office Visit [facility] [address] [place] [address] Yany Edmond MD [address] [place] [id number] [email or web address] 10/24/2025 12:30 PM EDT Office Visit [facility] [address] [place] [address] Lyly Garza, PAULA [address] [place] [phone] [email or web address] Due Date Last Done Comments SMOKING Hx and SMOKELESS TOBACCO SCREENING 2001 HEPATITIS C SCREENING 2006 HIV ONE-TIME SCREENING (18-65 YEARS) 2006 PAP SMEAR 2009 Adult Td,Tdap Booster 10/04/2023 10/03/2013 INFLUENZA VACCINE (#1) 2025 COVID-19 VACCINE (2 - season) 2025 07/31/2021 DEPRESSION SCREENING 11/23/2025 11/23/2024 CREATININE LEVEL 06/18/2026 06/18/2025, , 06/16/2025, Additional history exists SCREENING FOR DIABETES 06/18/2028 06/18/2025 HEPATITIS A VACCINES Aged Out No long [...] Procedure Name Priority Date/Time Associated Diagnosis Comments CBC Routine 06/18/2025 5:57 AM EST MAGNESIUM Routine 06/18/2025 5:57 AM EST COMPREHENSIVE METABOLIC PANEL (CMP) Routine 06/18/2025 5:57 AM EST PHOSPHORUS Routine 06/18/2025 5:57 AM EST POCT GLUCOSE Routine 06/17/2025 4:43 PM EST POCT GLUCOSE Routine 06/17/2025 11:56 AM EST CBC Routine 06/17/2025 8:28 AM EST MAGNESIUM Routine 06/17/2025 8:28 AM EST COMPREHENSIVE METABOLIC PANEL (CMP) Routine 06/17/2025 8:28 AM EST PHOSPHORUS Routine 06/17/2025 8:28 AM EST POCT GLUCOSE Routine 06/17/2025 7:36 AM EST POCT GLUCOSE Routine 06/16/2025 10:33 PM EST POCT GLUCOSE Routine 06/16/2025 4:56 PM EST POCT GLUCOSE Routine 06/16/2025 12:01 PM EST POCT GLUCOSE Routine 06/16/2025 7:26 AM EST PHOSPHORUS Routine 06/16/2025 5:43 AM EST MAGNESIUM Routine 06/16/2025 5:43 AM EST IONIZED CALCIUM Routine 06/16/2025 5:43 AM EST BASIC METABOLIC PANEL (BMP) Routine 06/16/2025 5:43 AM EST POCT GLUCOSE Routine 06/15/2025 9:17 PM EST PHOSPHORUS Timed 06/15/2025 4:15 PM EST MAGNESIUM Timed 06/15/2025 4:15 PM EST BASIC METABOLIC PANEL (BMP) Timed 06/15/2025 4:15 PM EST POCT GLUCOSE Routine 06/15/2025 11:57 AM EST POCT GLUCOSE Routine 06/15/2025 8:17 AM EST CBC AND DIFFERENTIAL Routine 06/15/2025 5:36 AM EST PHOSPHORUS Routine 06/15/2025 5:36 AM EST MAGNESIUM Routine 06/15/2025 5:36 AM EST BASIC METABOLIC PANEL (BMP) Routine 06/15/2025 5:36 AM EST CBC AND DIFFERENTIAL Routine 06/15/2025 5:36 AM EST POCT GLUCOSE Routine 06/14/2025 9:32 PM EST PHOSPHORUS STAT 06/14/2025 7:55 PM EST MAGNESIUM STAT 06/14/2025 7:55 PM EST IONIZED CALCIUM STAT 06/14/2025 7:55 PM EST BASIC METABOLIC PANEL (BMP) STAT 06/14/2025 7:55 PM EST POCT GLUCOSE Routine 06/14/2025 4:26 PM EST XR ABDOMEN 1 VIEW STAT 06/14/2025 12: 06 PM EST LACTATE (BLOOD GAS) STAT 06/14/2025 1 1:52 AM EST POCT GLUCOSE Routine 06/14/2025 11:34 AM EST ARTERIAL BLOOD GAS STAT 06/14/2025 9: 31 AM EST POCT GLUCOSE Routine 06/14/2025 8:57 AM EST POCT GLUCOSE Routine 06/14/2025 7:32 AM EST CBC AND DIFFERENTIAL Routine 06/14/2025 5:37 AM EST MAGNESIUM Routine 06/14/2025 5:37 AM EST PHOSPHORUS Routine 06/14/2025 5:37 AM EST CBC AND DIFFERENTIAL Routine 06/14/2025 5:37 AM EST BASIC METABOLIC PANEL (BMP) Routine 06/14/2025 5:37 AM EST TROPONIN STAT 06/14/2025 1:12 AM EST NT-PROBNP STAT 06/13/2025 10:50 PM EST TROPONIN STAT 06/13/2025 10:50 PM EST ECG 12-LEAD STAT 06/13/2025 10:37 PM EST XR CHEST PORTABLE STAT 06/13/2025 10: 08 PM EST POCT GLUCOSE Routine 06/13/2025 9:28 PM EST POCT GLUCOSE Routine 06/13/2025 5:19 PM EST PHOSPHORUS STAT 06/13/2025 2:26 PM EST BASIC METABOLIC PANEL (BMP) STAT 06/13/2025 2:26 PM EST VENOUS BLOOD GAS STAT 06/13/2025 2:26 PM EST LACTATE (BLOOD GAS) STAT 06/13/2025 2 :26 PM EST POCT GLUCOSE Routine 06/13/2025 11:57 AM EST POCT GLUCOSE Routine 06/13/2025 8:24 AM EST XR ABDOMEN 1 VIEW Routine 06/13/2025 7:2 2 AM EST CBC AND DIFFERENTIAL Routine 06/13/2025 3:58 AM EST MAGNESIUM Routine 06/13/2025 3:58 AM EST PHOSPHORUS Routine 06/13/2025 3:58 AM EST COMPREHENSIVE METABOLIC PANEL (CMP) Routine 06/13/2025 3:58 AM EST CBC AND DIFFERENTIAL Routine 06/13/2025 3:58 AM EST POCT GLUCOSE Routine 06/12/2025 9:10 PM EST ROTAVIRUS ANTIGEN, STOOL Routine 06/12/2025 4:39 PM EST NOROVIRUS PCR, STOOL Routine 06/12/2025 4:39 PM EST FECAL LEUKOCYTE EXAMINATION Routine 06/12/2025 4:39 PM EST POCT GLUCOSE Routine 06/12/2025 4:09 PM EST PHOSPHORUS Timed 06/12/2025 2:08 PM EST BASIC METABOLIC PANEL (BMP) Timed 06/12/2025 2:08 PM EST LACTATE (BLOOD GAS) Timed 06/12/2025 2 :07 PM EST XR ABDOMEN 1 VIEW Routine 06/12/2025 1:2 2 PM EST XR CHEST 1 VIEW Routine 06/12/2025 1:22 PM EST POCT GLUCOSE Routine 06/12/2025 10:13 AM EST CBC AND DIFFERENTIAL Routine 06/12/2025 4:29 AM EST CBC AND DIFFERENTIAL Routine 06/12/2025 4:29 AM EST PHOSPHORUS Routine 06/12/2025 4:28 AM EST MAGNESIUM Routine 06/12/2025 4:28 AM EST COMPREHENSIVE METABOLIC PANEL (CMP) Routine 06/12/2025 4:28 AM EST PHOSPHORUS Timed 06/11/2025 10:25 PM EST MAGNESIUM Timed 06/11/2025 10:25 PM EST BASIC METABOLIC PANEL (BMP) Timed 06/11/2025 10:25 PM EST LACTATE (BLOOD GAS) Timed 06/11/2025 1 0:24 PM EST POCT GLUCOSE Routine 06/11/2025 10:20 PM EST POCT GLUCOSE Routine 06/11/2025 5:56 PM EST IONIZED CALCIUM Timed 06/11/2025 4:30 PM EST CBC Timed 06/11/2025 4:30 PM EST PHOSPHORUS Timed 06/11/2025 4:30 PM EST MAGNESIUM Timed 06/11/2025 4:30 PM EST BASIC METABOLIC PANEL (BMP) Timed 06/11/2025 4:30 PM EST POCT GLUCOSE Routine 06/11/2025 1:43 PM EST MRSA PCR SCREEN Routine 06/11/2025 1:36 PM EST URINE SEDIMENT Today 06/11/2025 1:32 PM EST URINALYSIS WITH REFLEX TO URINE CULTURE Routine 06/11/2025 1:32 PM EST POCT GLUCOSE Routine 06/11/2025 11:20 AM EST AIRWAY PLACEMENT Routine 06/11/2025 9:28 AM EST EXPLORATORY LAPAROTOMY 9:25 AM EST ACUTE ABDOMEN LACTATE (BLOOD GAS) STAT 06/11/2025 7 :51 AM EST BLOOD CULTURE, ROUTINE STAT 7:51 AM EST BLOOD CULTURE, ROUTINE STAT 7:51 AM EST LACTATE (BLOOD GAS) STAT 06/11/2025 6 :10 AM EST LAB ADD-ON STAT 06/11/2025 5:[address] ABDOMEN/PELVIS WITH CONTRAST Routine 06/11/2025 4:47 AM EST HCG, SERUM QUALITATIVE STAT 12:49 AM EST CLOSTRIDIOIDES (CLOSTRIDIUM) DIFFICILE, PCR STAT 06/11/2025 12:48 AM EST LITHIUM LEVEL STAT 06/11/2025 12:48 AM EST CBC AND DIFFERENTIAL STAT 06/11/2025 12:48 AM EST LIPASE STAT 06/11/2025 12:48 AM EST MAGNESIUM STAT 06/11/2025 12:48 AM EST LFTS (HEPATIC PANEL) STAT 06/11/2025 12:48 AM EST BASIC METABOLIC PANEL (BMP) STAT 06/11/2025 12:48 AM EST CBC AND DIFFERENTIAL STAT 06/11/2025 12:48 AM EST STOOL CULTURE STAT 06/11/2025 12:48 AM EST ECG 12-LEAD Routine 06/10/2025 11:58 PM EST from Last 3 Months Results * (ABNORMAL) Comprehensive Metabolic Panel (CMP) (06/18/2025 5:57 AM EST) Only the most recent of4 resultswithin the time period is included. [facility] Signature Sodium 135(L) 136 - 145 mmol/L 06/18/2025 6:37 AM [facility] Potassium 4.3 3.4 - 5.1 mmol/L 06/18/2025 6:37 AM [facility] Chloride 102 98 - 107 mmol/L 06/18/2025 6:37 AM [facility] CO2 23 20 - 31 mmol/L 06/18/2025 6:37 AM [facility] Anion Gap 10 3 - 17 mmol/L 06/18/2025 6:37 AM [facility] BUN 7 6 - 23 mg/dL 06/18/2025 6:37 AM [facility] Creatinine 0.50 0.50 - 1.00 mg/dL 06/18/2025 6:37 AM [facility] eGFR 125 >59 mL/min/1.7 3m2 06/18/2025 6:37 AM [facility] Comment:Estimated glomerular filtration rate calculated using the CKD-EPI refit equation. Glucose 103(H) 70 - 99 mg/dL 06/18/2025 6:37 AM [facility] Calcium 8.3(L) 8.5 - 10.5 mg/dL 06/18/2025 6:37 AM [facility] AST 37(H) <33 U/L 06/18/2025 6:37 AM [facility] ALT 39(H) <34 U/L 06/18/2025 6:37 AM [facility] Alkaline Phosphatase 114 40 - 130 U/L 06/18/2025 6:37 AM [facility] Bilirubin, Total 0.2 0.0 - 1.2 mg/dL 06/18/2025 6:37 AM [facility] Total Protein 5.3(L) 6.4 - 8.3 g/dL 06/18/2025 6:37 AM [facility] Albumin 2.6(L) 3.5 - 5.2 g/dL 06/18/2025 6:37 AM [facility] Globulin 2.7 1.9 - 4.1 g/dL 06/18/2025 6:37 AM [facility] Blood (Blood) Venipuncture / Unknown 06/18/2025 5:57 AM EST 06/18/2025 6:07 AM EST us Kalpana Robb DO, MPH LAB BLOOD BKR O RDERAVIRGEN Final Result [facility] [address] [place] [address] * (ABNORMAL) CBC (06/18/2025 5:57 AM EST) Only the most recent of3 resultswithin the time period is included. WBC 6.59 4.00 - 11.00 K/uL 06/18/2025 6:24 AM [facility] RBC 3.72(L) 4.00 - 5.20 M/uL 06/18/2025 6:24 AM [facility] Hemoglobin 10.1(L) 12.0 - 16.0 g/dL 06/18/2025 6:24 AM [facility] Hematocrit 32.3(L) 36.0 - 46.0 % 06/18/2025 6:24 AM [facility] MCV 86.8 80.0 - 100.0 fL 06/18/2025 6:24 AM [facility] MCH 27.2 27.0 - 31.0 pg 06/18/2025 6:24 AM [facility] MCHC 31.3(L) 32.0 - 36.0 g/dL 06/18/2025 6:24 AM [facility] PLT 261 150 - 450 K/uL 06/18/2025 6:24 AM [facility] MPV 9.6 8.4 - 12.0 fL 06/18/2025 6:24 AM [facility] RDW-CV 14.9(H) 11.5 - 14.5 % 06/18/2025 6:24 AM [facility] Absolute NRBC 0.00 <=0.00 K cells/uL 06/18/2025 6:24 AM [facility] NRBC 0.0 <=0.0 /100 WBCs 06/18/2025 6:24 AM [facility] Blood (Blood) Venipuncture / Unknown 06/18/2025 5:57 AM EST 06/18/2025 6:07 AM EST us Kalpana Robb DO MPH LAB BLOOD BKR O RDERABLES Final Result Performing Organization Address [facility]/ZIP Co de Phone Number [address] [address] * Phosphorus (06/18/2025 5:57 AM EST) Only the most recent of13 resultswithin the time period is included. Phosphorus 3.8 2.5 - 4.5 mg/dL 06/18/2025 6:37 AM EST [facility] Blood (Blood) Venipuncture / Unknown 06/18/2025 5:57 AM EST 06/18/2025 6:07 AM EST us Kalpana Robb DO MPH LAB BLOOD BKR O RDERABLES Final Result Performing Organization Address [facility] Co de Phone Number [address] [address] * Magnesium (06/18/2025 5:57 AM EST) Only the most recent of12 resultswithin the time period is included. Magnesium 1.8 1.7 - 2.6 mg/dL 06/18/2025 6:37 AM EST [facility] Blood (Blood) Venipuncture / Unknown 06/18/2025 5:57 AM EST 06/18/2025 6:07 AM EST us Kalpana Robb DO MPH LAB BLOOD BKR O RDERABLES Final Result Performing Organization Address [facility] Co de Phone Number [address] [address] * (ABNORMAL) POCT Glucose (06/17/2025 4:43 PM EST) Only the most recent of26 resultswithin the time period is included. Glucose 112(H) 70 - 99 mg/dL 06/17/2025 4:44 PM EST [facility] Blood (Blood) 06/17/2025 4:4 3 PM EST 06/17/2025 4:44 PM EST us Kalpana Robb DO, MPH LAB POC T DOCKED DEVICE UNSOLICTED RESULTS Final Result Performing Organization Address City/[facility] Co de Phone Number [address] [address] * (ABNORMAL) Ionized Calcium (06/16/2025 5:43 AM EST) Only the most recent of3 resultswithin the time period is included. Pathologist [facility] Ionized Calcium 1.08(L) 1.14 - 1.30 mmol/L 06/16/2025 5:59 AM EST [facility] Blood (Blood, Venous) Venipuncture / Unknown 06/16/2025 5:43 AM EST 06/16/2025 5:49 AM EST us Kamron Giron ENAMEL FINISHER LAB BLOOD BKR ORDERABLES Final R esult Performing Organization Address [facility] Co de Phone Number [address] [address] * (ABNORMAL) Basic Metabolic Panel (BMP) (06/16/2025 5:43 AM EST) Only the most recent of10 resultswithin the time period is included. Pathologist [facility] Sodium 139 136 - 145 mmol/L 06/16/2025 6:19 AM [facility] Potassium 4.3 3.4 - 5.1 mmol/L 06/16/2025 6:19 AM [facility] Chloride 104 98 - 107 mmol/L 06/16/2025 6:19 AM [facility] CO2 26 20 - 31 mmol/L 06/16/2025 6:19 AM [facility] Anion Gap 9 3 - 17 mmol/L 06/16/2025 6:19 AM [facility] BUN 7 6 - 23 mg/dL 06/16/2025 6:19 AM [facility] Creatinine 0.50 0.50 - 1.00 mg/dL 06/16/2025 6:19 AM [facility] eGFR 125 >59 mL/min/1.7 3m2 06/16/2025 6:19 AM [facility] Comment:Estimated glomerular filtration rate calculated using the CKD-EPI refit equation. Glucose 98 70 - 99 mg/dL 06/16/2025 6:19 AM [facility] Calcium 8.2(L) 8.5 - 10.5 mg/dL 06/16/2025 6:19 AM [facility] Blood (Blood) Venipuncture / Unknown 06/16/2025 5:43 AM EST 06/16/2025 5:49 AM EST us Kamron Giron NP LAB BLOOD BKR ORDERABLES Final R esult Performing Organization Address City/State/[facility] Co de Phone Number [address] [address] * (ABNORMAL) CBC and Differential (06/15/2025 5:36 AM EST) Only the most recent of5 resultswithin the time period is included. WBC 8.42 4.00 - 11.00 K/uL 06/15/2025 6:12 AM [facility] RBC 3.58(L) 4.00 - 5.20 M/uL 06/15/2025 6:12 AM [facility] Hemoglobin 10.0(L) 12.0 - 16.0 g/dL 06/15/2025 6:12 AM [facility] Hematocrit 32.4(L) 36.0 - 46.0 % 06/15/2025 6:12 AM [facility] MCV 90.5 80.0 - 100.0 fL 06/15/2025 6:12 AM [facility] MCH 27.9 27.0 - 31.0 pg 06/15/2025 6:12 AM [facility] MCHC 30.9(L) 32.0 - 36.0 g/dL 06/15/2025 6:12 AM [facility] MPV 9.8 8.4 - 12.0 fL 06/15/2025 6:12 AM [facility] RDW-CV 15.0(H) 11.5 - 14.5 % 06/15/2025 6:12 AM [facility] PLT 225 150 - 450 K/uL 06/15/2025 6:12 AM [facility] Neutrophils 74.5 % 06/15/2025 6:12 AM [facility] Lymphocytes 9.3 % 06/15/2025 6:12 AM [facility] Monocytes 11.0 % 06/15/2025 6:12 AM [facility] Eosinophils 1.7 % 06/15/2025 6:12 AM [facility] Basophils 0.6 % 06/15/2025 6:12 AM [facility] Imm Grans 2.9 % 06/15/2025 6:12 AM [facility] NRBC 0.0 <=0.0 /100 WBCs 06/15/2025 6:12 AM [facility] Absolute Neutrophils 6.28 1.92 - 7.60 K/uL 06/15/2025 6:12 AM [facility] Absolute Lymphocytes 0.78 0.72 - 4.10 K/uL 06/15/2025 6:12 AM [facility] Absolute Monocytes 0.93 0.16 - 1.10 K/uL 06/15/2025 6:12 AM [facility] Absolute Eosinophils 0.14 0.00 - 0.50 K/uL 06/15/2025 6:12 AM [facility] Absolute Basophils 0.05 0.00 - 0.15 K/uL 06/15/2025 6:12 AM [facility] Absolute Imm Grans 0.24(H) 0.00 - 0.09 K/uL 06/15/2025 6:12 AM [facility] Absolute NRBC 0.00 <=0.00 K cells/uL 06/15/2025 6:12 AM [facility] Absolute Neutrophils 6.28 1.92 - 7.60 K/uL 06/15/2025 6:12 AM [facility] Comment:Automated cell count . Manual ANC may differ if performed. Diff Type Auto 06/15/2025 6:12 AM EST [facility] Blood (Blood) Catheter/Line / Unknown 06/15/2025 5:36 AM EST 06/15/2025 5:37 AM EST Harpal Castillo CNP LAB BLOOD BKR ORDERABLES Final Result [address] [address] * XR ABDOMEN 1 VIEW (06/14/2025 12:06 PM EST) Anatomical Region Laterality Modality Abdomen Computed Radiogr aphy 06/14/2025 12:0 9 PM EST Impressions 06/14/2025 12:13 PM EST 1. Multiple distended loops of colon and moderate to large stool burden similar to prior study Narrative 06/14/2025 12:13 PM EST XR ABDOMEN 1 VIEW Referring clinician's provided indication for this examination in [facility]: Abdominal distension; Bowel obstruction suspected; Infection; Pain COMPARISON: 06/13/2025 FINDINGS: Tubes/Lines: None Bowel: Multiple distended loops of colon and moderate to large stool burden similar to prior study. No acute osseous abnormalities. Procedure Note Bruno Ochoa MD - 06/14/2025 XR ABDOMEN 1 VIEW Referring clinician's provided indication for this examination in [facility]:Abdominal distension; Bowel obstruction suspected; Infection; Pain COMPARISON: 06/13/2025 FINDINGS: Tubes/Lines: None Bowel: Multiple distended loops of colon and moderate to large stoolburden similar to prior study. No acute osseous abnormalities. IMPRESSION: 1. Multiple distended loops of colon and moderate to large stool burdensimilar to prior study us Harpal Castillo CNP IMG XR ABDOMEN Final Res ult * Lactate, Whole Blood (06/14/2025 11:52 AM EST) Only the most recent of6 resultswithin the time period is included. Lactate, Whole Blood 1.0 0.5 - 2.0 mmol/L 06/14/2025 12:04 PM [facility] Blood (Blood, Venous) Catheter/Line / Unknown 06/14/2025 11:52 AM EST 06/14/2025 12:01 PM EST Harpal Castillo CNP LAB BLOOD BKR ORDERABLES Final Result Performing Organization Address City/[facility] Co de Phone Number [address] [address] * (ABNORMAL) Arterial Blood Gas (ABG) (06/14/2025 9:31 AM EST) Pathologist [facility] O2 Flow (L/min) 6.0 L/min 9:41 AM [facility] Comment:oxymask pH, Arterial 7.44 7.35 - 7.45 06/14/2025 9:41 AM [facility] pCO2, Arterial 39 35 - 45 mm[Hg] 06/14/2025 9:41 AM [facility] pO2, Arterial 60(L) 80 - 105 mm[Hg] 06/14/2025 9:41 AM [facility] Bicarbonate (HCO3) 26 22 - 26 mmol/L 06/14/2025 9:41 AM [facility] Base Excess 1.6 -3.0 - 3.0 mmol/L 06/14/2025 9:41 AM [facility] Oxygen Saturation, Arterial 90.7(L) 95.0 - 98.0 % 06/14/2025 9:41 AM [facility] Temperature 38.0 deg C 06/14/2025 9:41 AM [facility] Blood (Blood, Arterial) Arterial Puncture / Unknown 06/14/2025 9:31 AM EST 06/14/2025 9:37 AM EST us Harpal Castillo CNP LAB BLOOD BKR ORDERABLES Final Result Performing Organization Address City/[facility]/ZIP Co de Phone Number [address] [address] * Troponin (06/14/2025 1:12 AM EST) Only the most recent of2 resultswithin the time period is included. Troponin-T HS Gen5 <6 0 - 9 ng/L 06/14/2025 1:44 AM EST [facility] Blood (Blood) Catheter/Line / Unknown 06/14/2025 1:12 AM EST 06/14/2025 1:26 AM EST us Kamron Giron ENAMEL FINISHER LAB BLOOD BKR ORDERABLES Final R esult Performing Organization Address City/[facility]/ZIP Co de Phone Number [address] [address] * NT-proBNP (06/13/2025 10:50 PM EST) NT-ProBNP 119 0 - 450 pg/mL 06/13/2025 11:34 PM EST [facility] Comment: Age <50 years: 0-450 pg/ml Age 50-75 years: 0-900 pg/ml Age >75 years: 0-1800 pg/ml A NT-proBNP <300 pg/ml effectively rules out acute congestive heart failure, with 99% negative predictive value. NT-proBNP cutoffs were developed for the diagnosis of heart failure. Marked elevations in NT-proBNP levels may be observed in states other than left ventricular congestive heart failure. Falsely low NT-proBNP in congestive heart failure patients may be observed with increasing body-mass index. Blood (Blood) Catheter/Line / Unknown 06/13/2025 10:50 PM EST 06/13/2025 11:05 PM EST us Kamron Giron ENAMEL FINISHER LAB BLOOD BKR ORDERABLES Final R esult Performing Organization Address City/[facility]/ZIP Co de Phone Number [address] [address] * ECG 12-LEAD (06/13/2025 10:37 PM EST) Only the most recent of2 resultswithin the time period is included. Ventricular Rate EKG/MIN 110 BPM [facility] Atrial Rate 110 BPM [facility] AK Interval 160 ms [facility] QRS Duration 82 ms [facility] QT Interval 322 ms [facility] QTC Interval 435 ms [facility] P [place] 44 degrees [facility] R Wave [place] 57 degrees [facility] T Wave [place] 26 degrees [facility] 06/13/2025 10:3 7 PM EST 06/14/2025 8:24 AM EST Narrative [facility] - 06/14/2025 8:24 AM EST Sinus tachycardia Low voltage QRS Nonspecific T wave abnormality Abnormal ECG When compared with ECG of 10-Jun-2025 23:58, T wave inversion now evident in Anterior leads Confirmed by Dany Ragsdale ([id number]) on 06/14/2025 8:24:23 AM us Kamron Giron NP ECG ORDERABLES Final Result [facility] * XR Chest Portable (06/13/2025 10:08 PM EST) Anatomical Region Laterality Modality Chest Computed Radiogr aphy 06/14/2025 8:13 AM EST Impressions 06/14/2025 8:16 AM EST Abnormal exam. Hypoventilatory changes. Diffuse increased opacity in both lungs right greater than left may be due to worsening pulmonary edema, aspiration or multifocal pneumonia. Continued surveillance recommended Narrative 06/14/2025 8:16 AM EST XR CHEST PORTABLE Referring clinician's provided indication for this examination in Epic: Dyspnea (Shortness of Breath) COMPARISON: 06/12/2025 FINDINGS: Devices/Tubes/Lines: None. Lungs: Lung volumes are low. There is elevation of the right diaphragm again noted. There is diffuse increased opacity throughout both lungs right greater than left greatest in the right infrahilar region which may be due to worsening pulmonary edema, aspiration or multifocal pneumonia. Pleura: No large pleural effusions. No pneumothorax Heart/Mediastinum: Unchanged in appearance. Bones/Soft Tissues: No acute osseous abnormalities. Procedure Note Bruno Ochoa MD - 06/14/2025 XR CHEST PORTABLE Referring clinician's provided indication for this examination in Epic:Dyspnea (Shortness of Breath) COMPARISON: 06/12/2025 FINDINGS: Devices/Tubes/Lines: None. Lungs: Lung volumes are low. There is elevation of the right diaphragmagain noted. There is diffuse increased opacity throughout both lungsright greater than left greatest in the right infrahilar region which maybe due to worsening pulmonary edema, aspiration or multifocal pneumonia. Pleura: No large pleural effusions. No pneumothorax Heart/Mediastinum: Unchanged in appearance. Bones/Soft Tissues: No acute osseous abnormalities. IMPRESSION: Abnormal exam. Hypoventilatory changes. Diffuse increased opacity in both lungs right greater than left may be dueto worsening pulmonary edema, aspiration or multifocal pneumonia.Continued surveillance recommended us Kamron Giron ENAMEL FINISHER IMG XR CHEST Final Result * (ABNORMAL) Venous Blood Gas (VBG) (06/13/2025 2:26 PM EST) pH, Venous 7.41 7.31 - 7.41 06/13/2025 2:41 PM [facility] pCO2, Venous 36 35 - 45 mm[Hg] 06/13/2025 2:41 PM [facility] pO2, Venous 71(H) 35 - 40 mm[Hg] 06/13/2025 2:41 PM [facility] Base Excess -1.6 -3.0 - 3.0 mmol/L 06/13/2025 2:41 PM [facility] Bicarbonate (HCO3) 23 23 - 28 mmol/L 06/13/2025 2:41 PM [facility] Oxygen Saturation, Venous 93.3(H) 60.0 - 80.0 % 06/13/2025 2:41 PM [facility] Blood (Blood, Venous) Venipuncture / Unknown 06/13/2025 2:26 PM EST 06/13/2025 2:37 PM EST us Ashlee Remy PA-C, MS LAB BLOOD BKR ORD ERABLES Final Result Performing Organization Address City/[facility]/ZIP Co de Phone Number [address] [address] * XR ABDOMEN 1 VIEW (06/13/2025 7:22 AM EST) Anatomical Region Laterality Modality Abdomen Computed Radiogr aphy 06/13/2025 8:28 AM EST Impressions 06/13/2025 8:29 AM EST Similar prominent loops of bowel and large colonic stool burden. Narrative 06/13/2025 8:29 AM EST XR ABDOMEN 1 VIEW Referring clinician's provided indication for this examination in [facility]: Abdominal distension COMPARISON: XR ABDOMEN 1 VIEW FINDINGS: Tubes/Lines: None Bowel: Similar prominent loops of bowel and large colonic stool burden. Procedure Note Kushal Patrick DO, MPH - 06/13/2025 XR ABDOMEN 1 VIEW Referring clinician's provided indication for this examination in [facility]:Abdominal distension COMPARISON: XR ABDOMEN 1 VIEW FINDINGS: Tubes/Lines: None Bowel: Similar prominent loops of bowel and large colonic stool burden. IMPRESSION: Similar prominent loops of bowel and large colonic stool burden. us Ashlee Remy PA-C, MS IMG XR ABDOMEN F inal Result * Fecal Leukocyte Examination (06/12/2025 4:39 PM EST) Fecal Leukocyte Examination No fecal leukocytes seen 06/13/2025 8:37 AM EST [facility] Stool (Per Rectum) 06/12/2025 4:39 PM EST 06/12/2025 4:45 PM EST us Ashlee Remy PA-C, MS LAB BODY FLUIDS A ND STOOL ORDERABLES Final Result [address] [address] * Rotavirus Antigen, Stool (06/12/2025 4:39 PM EST) Rotavirus Ag, F Negative Negative 06/17/2025 2:07 PM EST [facility] Comment: ADDITIONAL INFORMATION Test Performed by Enzyme Immunoassay. Stool (Per Rectum) 06/12/2025 4:39 PM EST 06/12/2025 4:45 PM EST us Ashlee Remy PA-C, MS LAB BODY FLUIDS A ND STOOL ORDERABLES Final Result Performing Organization Address [facility] Co de Phone Number [place]AN[place] JO[address] [address], [facility] [phone] * Norovirus PCR, Stool (06/12/2025 4:39 PM EST) Norovirus G1 PCR Negative Negative 06/15/20 9:22 PM EST [facility] Norovirus G2 PCR Negative Negative 06/15/20 9:22 PM EST [facility] Comment: ADDITIONAL INFORMATION This test was developed and its performance characteristics determined by [facility] in a manner consistent with CLIA requirements. This test has not been cleared or approved by the U.S. Food and Drug Administration. Stool (Per Rectum) 06/12/2025 4:39 PM EST 06/12/2025 4:45 PM EST us Ashlee Remy PA-C, MS LAB BODY FLUIDS A ND STOOL ORDERABLES Final Result Performing Organization Address [facility] Co de Phone Number [place] [address] [address], [place] [phone] * XR ABDOMEN 1 VIEW (06/12/2025 1:22 PM EST) Anatomical Region Laterality Modality Abdomen Computed Radiogr aphy 06/12/2025 1:23 PM EST Impressions 06/12/2025 1:26 PM EST 1. Persistent large volume stool burden throughout the colon. Mild diffuse small bowel distention which may be related to ileus. Narrative 06/12/2025 1:26 PM EST XR ABDOMEN 1 VIEW Referring clinician's provided indication for this examination in [facility]: Abdominal distension COMPARISON: Abdomen/pelvis CT 06/11/2025 FINDINGS: Tubes/Lines: None Bowel: Large volume stool burden throughout the colon appears distended. Mild small bowel distention. No acute osseous abnormality Procedure Note Ibis Shepard MD - 06/12/2025 XR ABDOMEN 1 VIEW Referring clinician's provided indication for this examination in [facility]:Abdominal distension COMPARISON: Abdomen/pelvis CT 06/11/2025 FINDINGS: Tubes/Lines: None Bowel: Large volume stool burden throughout the colon appears distended.Mild small bowel distention. No acute osseous abnormality IMPRESSION: 1. Persistent large volume stool burden throughout the colon. Milddiffuse small bowel distention which may be related to ileus. Ashlee Remy PA-C, MS IMG XR ABDOMEN F inal Result * XR CHEST 1 VIEW (06/12/2025 1:22 PM EST) Anatomical Region Laterality Modality Chest Computed Radiogr aphy 06/12/2025 1:22 PM EST Impressions 06/12/2025 1:24 PM EST 1. Low lung volumes with atelectasis. 2. No pneumothorax. Narrative 06/12/2025 1:24 PM EST XR CHEST 1 VIEW Referring clinician's provided indication for this examination in [facility]: Dyspnea (Shortness of Breath); COMPARISON: CT abdomen/pelvis dated 06/11/2025 FINDINGS: Devices/Tubes/Lines: None. Lungs: Low lung volumes with atelectasis. Pleura: No pleural effusion or pneumothorax. Heart/Mediastinum: Heart size is normal. Bones/Soft Tissues: No acute abnormality. Procedure Note José Antonio Arenas MD - 06/12/2025 XR CHEST 1 VIEW Referring clinician's provided indication for this examination in Epic:Dyspnea (Shortness of Breath); COMPARISON: CT abdomen/pelvis dated 06/11/2025 FINDINGS: Devices/Tubes/Lines: None. Lungs: Low lung volumes with atelectasis. Pleura: No pleural effusion or pneumothorax. Heart/Mediastinum: Heart size is normal. Bones/Soft Tissues: No acute abnormality. IMPRESSION: 1. Low lung volumes with atelectasis. 2. No pneumothorax. Ashlee Remy PA-C, MS IMG XR CHEST F inal Result * MRSA NASAL SCREEN, PCR (06/11/2025 1:36 PM EST) Pathologist [facility] MRSA PCR Screen Negative for MRSA Negative for MRSA 06/11/2025 3:13 PM EST [facility] Swab (Anterior Nares) Non-Blood Collection / Unknown 06/11/2025 1:36 PM EST 06/11/2025 1:45 PM EST Harpal Castillo [facility] LAB GENERAL ORDERABLES Fi nal Result [facility] [address] [place] [address] * (ABNORMAL) Urinalysis with Reflex to Urine Culture (06/11/2025 1:32 PM EST) Color Yelitza(A) Yellow 06/11/2025 2:18 PM EST [facility] Comment:Abnormal urine color may be associated with false-positive results. Interpret results with caution. Clarity Clear Clear 06/11/2025 2:18 PM [facility] Glucose Negative Negative 06/11/2025 2:18 PM [facility] Bilirubin Urine 2+(A) Negative 2:18 PM [facility] Ketone Urine Trace(A) Negative 06/11/2025 2:18 PM [facility] Specific [place] >=1.030 1.001 - 1.035 06/11/2025 2:18 PM [facility] Blood 1+(A) Negative 06/11/2025 2:18 PM [facility] pH 5.5 5.0 - 8.0 06/11/2025 2:18 PM [facility] Protein Trace(A) Negative 06/11/2025 2:18 PM [facility] Nitrites Positive(A) Negative 06/11/2025 2:18 PM [facility] Leukocyte Esterase Negative Negative 06/11/2025 2:18 PM [facility] Urobilinogen Negative Negative 06/11/2025 2:18 PM [facility] Urine (Urine, Voided) Non-Blood Collection / Unknown 06/11/2025 1:32 PM EST 06/11/2025 1:44 PM EST Harpal Castillo [facility] LAB URINE ORDERABLES Francesca anabel Result [address] [address] * (ABNORMAL) URINE SEDIMENT (06/11/2025 1:32 PM EST) WBC 0-2 0 - 9 /hpf 06/11/2025 2:38 PM [facility] RBC 10-20(A) 0 - 2 /hpf 06/11/2025 2:38 PM [facility] Squamous Epithelial Cells 3-5(A) Not Present /hpf 06/11/2025 2:38 PM [facility] Mucus Present(A ) Not Present /hpf 06/11/2025 2:38 PM [facility] Urine (Urine, Voided) Non-Blood Collection / Unknown 06/11/2025 1:32 PM EST 06/11/2025 1:44 PM EST us Harpal Castillo CNP LAB URINE ORDERABLES Francesca l Result Performing Organization Address [facility]/ZIP Co de Phone Number [address] [address] * ANES ETT DOUBLE LUMEN - AIRWAY LDA (06/11/2025 9:28 AM EST) Narrative Terrance Medina Jr., - 06/11/2025 9:28 AM EST Terrance Medina Jr., 06/11/2025 9:55 AM Airway Placement Procedure Note: Patient was not difficult to intubate. Procedure performed by: anesthesiologist Anesthesiologist: Terrance Medina Jr., DO Airway procedure initiated at:06/11/2025 9:28 AM and ended at. Personal Protective Equipment: Mask: surgical mask Mask Ventilation: Quality: easy Adjunct: muscle relaxant Airway Placement: Technique: video laryngoscopy Rapid sequence induction: no Details: Blade type: Glidescope Blade size: 4 Video view: grade 1 Number of attempts: 1 ETT type: cuffed ETT size: 7.0 ETT depth at teeth: 22 Tube position confirmed by: bilateral breath sounds and EtCO2 Outcomes: Evidence of dental injury? no Terrance Medina Jr., DO [place] ANESTHESIA Final R esult * Blood Culture, Routine (06/11/2025 7:51 AM EST) Only the most recent of2 resultswithin the time period is included. Blood Culture/Test No growth at 5 days 06/16/2025 8:35 AM EST [facility] Blood (Blood) 06/11/2025 7:5 1 AM EST 06/11/2025 8:22 AM EST us Neymar Bansal MD LAB MICROBIOLOGY CULTURE ORDERABLES Final Result Performing Organization Address [facility]/ZIP Co de Phone Number [address] [address] * Lab Add-On (06/11/2025 5:25 AM EST) Specimen Date/Time 06/11/2025 10:13 PM EST [facility] Test Requested Stool culture 06/11/2025 10:13 PM EST [facility] Specimen Description 06/11/2025 10:13 PM [facility] Comments 06/11/2025 10:13 PM EST [facility] Was this request processed? Yes 06/11/2025 10:13 PM [facility] Other (Other) 06/11/2025 5:2 5 AM EST 06/11/2025 5:25 AM EST us Refugio Mills DO LAB GENERAL ORDERABLES Final Result [address] [address] * CT ABDOMEN/PELVIS WITH CONTRAST (06/11/2025 4:47 AM EST) MGB IMG MECHANICAL SHOVEL OPERATOR COMMENT Proctocolitis, possible stercoral component Large bowel illeus vs. partial obstruction Pneumatosis right colon, recommend correlation with lactate. Vessels are patent. [facility] Anatomical Region Laterality Modality Abdomen, Pelvis Computed Tomogra phy 06/11/2025 5:22 AM EST Impressions 06/11/2025 5:46 AM EST 1. Nonspecific proctocolitis with diarrheal illness, may be infectious/inflammatory and/or stercoral. 2. Diffuse distention/mild dilatation of the colon, with multiple large stool balls in the left-sided colon, may relate to ileus or partial obstruction. 3. Pneumatosis seen from the cecum to the distal ascending colon, recommend correlation with lactate. No portal venous gas. Mesenteric vessels are patent. A clinically significant result was initiated on 06/11/2025 5:46 AM, Message ID [id number]. Narrative 06/11/2025 5:[address] ABDOMEN/PELVIS WITH CONTRAST Referring clinician's provided indication for this examination in Epic: * Abdominal pain, acute, nonlocalized; * Nausea/vomiting TECHNIQUE: Multidetector-row CT of the abdomen and pelvis was performed after administration of intravenous contrast using tailored dose modulation techniques. Images were reconstructed in the axial, coronal, and sagittal planes. COMPARISON: FINDINGS: Artifact related to patient motion degrades image quality. Lower Chest: No consolidation or pleural effusions. Small hiatal hernia. Patulous distal esophagus with air-fluid level, likely related to reflux. Borderline cardiomegaly. Liver: No suspicious lesions. Geographic hypoattenuation falciform ligament may be perfusional or related to focal fat. Biliary: Noninflamed gallbladder. No calcified stones. No biliary ductal dilatation. Pancreas: No ductal dilatation or gross peripancreatic inflammation allowing for motion. Spleen: No suspicious lesions. Bowel: Normal appendix. Nondilated small bowel, although there are several loops of fecalized small bowel, which can be seen in the setting of slow transit/constipation. Diffuse distention/mild dilatation of the colon, with transverse colon measuring up to 7 cm and sigmoid colon measuring up to 6 cm. Diffuse liquid stool throughout the colon with air-fluid level, with multiple large stool ball seen in the left- sided colon. Mild rectal wall thickening, with relative narrowing of the mid right (which may be due to peristalsis/accentuated by large stool ball in the proximal rectum, as seen on series 904, image 80), but gas and fluid is seen to the distal rectum. Scattered colonic wall thickening, including splenic flexure, rectosigmoid with surrounding mesenteric edema, and rectum. Pneumatosis seen from the cecum to the distal ascending colon. No portal venous gas. Adrenal Glands: No suspicious nodules. Kidneys/Ureters: No obstructing stones or hydronephrosis. No suspicious mass. Pelvic Organs/Bladder: No suspicious lesion within limits of CT. Peritoneum/Retroperitoneum: No free air. Trace free fluid lower abdomen and pelvis, may be combination of reactive physiologic changes. Lymph Nodes: No suspicious lymphadenopathy by CT size criteria. Vessels: No abdominal aortic aneurysm. Accessory right renal artery. No acute venous abnormality allowing for phase of contrast. Bones/Soft Tissues: No acute findings. Procedure Note Kun Garcia MD / System, Provider Not In, PhD - 06/11/2025 CT ABDOMEN/PELVIS WITH CONTRAST Referring clinician's provided indication for this examination in Epic: *Abdominal pain, acute, nonlocalized; * Nausea/vomiting TECHNIQUE: Multidetector-row CT of the abdomen and pelvis was performedafter administration of intravenous contrast using tailored dosemodulation techniques. Images were reconstructed in the axial, coronal,and sagittal planes. COMPARISON: FINDINGS: Artifact related to patient motion degrades image quality. Lower Chest: No consolidation or pleural effusions. Small hiatal hernia.Patulous distal esophagus with air-fluid level, likely related to reflux.Borderline cardiomegaly. Liver: No suspicious lesions. Geographic hypoattenuation falciformligament may be perfusional or related to focal fat. Biliary: Noninflamed gallbladder. No calcified stones. No biliary ductaldilatation. Pancreas: No ductal dilatation or gross peripancreatic inflammationallowing for motion. Spleen: No suspicious lesions. Bowel: Normal appendix. Nondilated small bowel, although there are severalloops of fecalized small bowel, which can be seen in the setting of slowtransit/constipation. Diffuse distention/mild dilatation of the colon,with transverse colon measuring up to 7 cm and sigmoid colon measuring upto 6 cm. Diffuse liquid stool throughout the colon with air-fluid level,with multiple large stool ball seen in the left-sided colon. Mild rectalwall thickening, with relative narrowing of the mid right (which may bedue to peristalsis/accentuated by large stool ball in the proximal rectum,as seen on series 904, image 80), but gas and fluid is seen to the distalrectum. Scattered colonic wall thickening, including splenic flexure,rectosigmoid with surrounding mesenteric edema, and rectum. Pneumatosisseen from the cecum to the distal ascending colon. No portal venous gas. Adrenal Glands: No suspicious nodules. Kidneys/Ureters: No obstructing stones or hydronephrosis. No suspiciousmass. Pelvic Organs/Bladder: No suspicious lesion within limits of CT. Peritoneum/Retroperitoneum: No free air. Trace free fluid lower abdomenand pelvis, may be combination of reactive physiologic changes. Lymph Nodes: No suspicious lymphadenopathy by CT size criteria. Vessels: No abdominal aortic aneurysm. Accessory right renal artery. Noacute venous abnormality allowing for phase of contrast. Bones/Soft Tissues: No acute findings. IMPRESSION: 1. Nonspecific proctocolitis with diarrheal illness, may beinfectious/inflammatory and/or stercoral. 2. Diffuse distention/mild dilatation of the colon, with multiple largestool balls in the left-sided colon, may relate to ileus or partialobstruction. 3. Pneumatosis seen from the cecum to the distal ascending colon,recommend correlation with lactate. No portal venous gas. Mesentericvessels are patent. A clinically significant result was initiated on 06/11/2025 5:46 AM,Message ID [id number]. us Refugio Mills DO IMG CT ABD/PELVIS Edited Resu lt - Final * Human Chorionic Gonadotropin (HCG), Qualitative, Blood (06/11/2025 12:49 AM EST) hCG Qualitative Negative Negative 2:16 AM EST [facility] Blood (Blood) Venipuncture / Unknown 06/11/2025 12:49 AM EST 06/11/2025 1:09 AM EST us Refugio Mills DO LAB BLOOD BKR ORDERABLES Francesca l Result Performing Organization Address City/[facility]/ZIP Co de Phone Number [address] [address] * CLOSTRIDIOIDES (CLOSTRIDIUM) DIFFICILE, PCR (06/11/2025 12:48 AM EST) Pathologist [facility] C. difficile PCR Negative Negative 06/11/2025 1:49 AM EST [facility] Comment:Negative for C. diff icile Stool (Per Rectum) 06/11/2025 12:48 AM EST 06/11/2025 12:53 AM EST us Refugio Mills DO LAB BODY FLUIDS AND STOOL ORD ERABLES Final Result Performing Organization Address [facility]/ZIP Co de Phone Number [address] [address] * Hepatic Panel (LFTs) (06/11/2025 12:48 AM EST) AST 20 <33 U/L 06/11/2025 1:45 AM [facility] ALT 27 <34 U/L 06/11/2025 1:45 AM [facility] Alkaline Phosphatase 76 40 - 130 U/L 06/11/2025 1:45 AM [facility] Bilirubin, Total 0.7 0.0 - 1.2 mg/dL 06/11/2025 1:45 AM [facility] Bilirubin, Direct 0.2 0.0 - 0.3 mg/dL 06/11/2025 1:45 AM [facility] Total Protein 6.4 6.4 - 8.3 g/dL 06/11/2025 1:45 AM [facility] Albumin 3.9 3.5 - 5.2 g/dL 06/11/2025 1:45 AM [facility] Globulin 2.5 1.9 - 4.1 g/dL 06/11/2025 1:45 AM [facility] Blood (Blood) Venipuncture / Unknown 06/11/2025 12:48 AM EST 06/11/2025 1:09 AM EST us Refugio Mills DO LAB BLOOD BKR ORDERABLES Francesca l Result [address] [address] * Stool Culture (06/11/2025 12:48 AM EST) Stool Culture/Test No Salmonella, Shigella, Aeromonas, Plesiomonas, or Campylobacter isolated 06/14/2025 9:02 AM [facility] Stool (Per Rectum) 06/11/2025 12:48 AM EST 06/11/2025 12:53 AM EST us Refugio Mills DO LAB MICROBIOLOGY CULTURE ORDE RABLES Final Result [address] [address] * Lipase (06/11/2025 12:48 AM EST) Lipase 15 - 60 U/L 06/11/2025 1:45 AM EST [facility] Blood (Blood) Venipuncture / Unknown 06/11/2025 12:48 AM EST 06/11/2025 1:09 AM EST us Refugio G Mills DO LAB BLOOD BKR ORDERABLES Francesca l Result Performing Organization Address City/[facility]/ZIP Co de Phone Number [address] [address] * (ABNORMAL) [place] Level (06/11/2025 12:48 AM EST) [place] <0.05(L) 0.50 - 1.20 mmol/L 06/11/2025 2:01 AM EST [facility] Blood (Blood) Venipuncture / Unknown 06/11/2025 12:48 AM EST 06/11/2025 1:09 AM EST us [employer] DO LAB BLOOD BKR ORDERABLES Francesca l Result Performing Organization Address City/[facility]/ZIP Co de Phone Number [address] [address] from Last 3 Months Insurance [facility] ACO ACO ACO [employer] [place] [address] [place] [address] [place] [address] [place] [address] ACO [facility] ACO Advance Directives For more information, please contact: [phone] (9AM - 5PM [facility], Wednesday-Wednesday) Documents on File Type Date Recorded Patient Supervisor Claims Expl anation Legal Guardianship 06/19/2025 3:50 PM Gra nted Legal Guardianship 06/14/2025 3:29 PM Ashish ers Order Legal Guardianship 06/13/2025 6:04 PM Gua rdianship Decree * Full Code (Latest Code Status on [...] Answer Comments Code Status Confirmed With: Patient Healthcare Agents on File Name Relationship Healthcare Agent Relationship Communication Jovana (Aunt) Nieto Relative Court Appoi nted Guardian for Healthcare (documentation on file) [email or web address] Teams Manager Storage Relationship Specialty Start Date End Date Sandro Price NP [address] [place] [address] [id number] PCP - General Nurse Practitioner 7/11/23 Additional Source Comments The information contained in this document represents components of the legal health record. It is not the complete legal health record.[facility]
--- OUTSIDE RECORDS SUMMARY | 2025-07-17 18:55 | XMS_ITS | Encounter Summary ---
Author Organization [facility] Address [address] [place] [address] Phone Care Team Providers Care Hunter Skin Diver Name Role Phone Sandro Price ENDLESS BED DRUM SANDER Primary Care Provider [phone] Encounter Details Date Type Department Care Team (Late st Contact Info) Description 06/11/2025 Procedure Pass [facility], Ct Scan - [facility] [address] [place] [address] Social History Tobacco Use Types Packs/Day Years [...] your housing situation today? I have dustin leyva 06/12/2025 How many times have you move [...] PM EDT documented as of this encounter Functional Status * Calculated C-SSRS Risk Score (Lifetime/Recent) Answer Date of Assessment Author No Risk Indicated 06/11/2025 12:08 AM EST Jefferson, Estelita, RN * [place] Suicide Severity Rating Scale (Screener/Recent Self-Report) Question Answer Date of Assessment Author 1. Wish to be (Past 1 Month) No 025 12:08 AM Estelita Serna RN 2. Non-Specific Active Suici denisa Thoughts (Past 1 Month) No 06/11/2025 12:08 AM Hiro Serna RN 6. Suicidal Behavior (Lifetime) No 12:08 AM Estelita Serna RN documented as of this encounter Plan of Treatment Upcoming Encounters Date Type Department Care Team (Late st Contact Info) Description 10/23/2025 11:00 AM EDT Office Visit [facility] Neurology Movement Disorders Program [address] [place] [address] Yany Edmond MD [address] [place] [address] [email or web address] 10/24/2025 12:30 PM EDT Office Visit [facility] Gastroenterology Clinic [address] [place] [address] Lyly Garza, PAULA [address] [place] [phone] [email or web address] documented as of this encounter Visit Diagnoses Not on filedocumented in this encounter Additional Health Concerns Infection Onset Date Last Indicated Resolved Time CDiff-Risk 06/11/2025 06/11/2025 06/11/2025 1:49 AM EST Noro-Risk 06/11/2025 06/12/2025 06/15/2025 10:2 4 PM EST documented as of this encounter Care Teams Hunter Skin Diver Relationship Specialty Start Date End Date Sandro Price NP [address] [place] [address] PCP - General Nurse Practitioner 02/09/23 documented as of this encounter Additional Source Comments The information contained in this document represents components of the legal health record. It is not the complete legal health record.[facility]
--- OUTSIDE RECORDS SUMMARY | 2025-07-17 18:55 | XMS_ITS | Encounter Summary ---
Author Organization [facility] Address [address] [place] [address] Phone Care Team Providers Care Template Fitter Name Role Phone Sandro Price GROUP BILLING COORDINATOR Primary Care Provider [phone]- [phone] Encounter Details Date Type Department Care Team (Late st Contact Info) Description 11/23/[address] [facility], [facility] [address] [place] [address] Social History Tobacco Use Types Packs/Day Years [...] Description 10/23/2025 11:00 AM EDT Office Visit [facility] Movement Disorders Program [address] [place] [address] Yany Edmond MD [address] [place] [phone] [email or web address] 10/24/2025 12:30 PM EDT Office Visit [facility] Gastroenterology Clinic [address] [place] [address] Lyly Garza, PAULA [address] [address] [email or web address] documented as of this encounter Visit Diagnoses Not on filedocumented in this encounter Additional Health Concerns Infection Onset Date Last Indicated Resolved Time CDiff-Risk 06/11/2025 06/11/2025 06/11/2025 1:49 AM EST Noro-Risk 06/11/2025 06/12/202506/15/2025 10:2 4 PM EST documented as of this encounter Care Teams Template Fitter Relationship Specialty Start Date End Date Sandro Price NP [address] [place] [address] PCP - General Nurse Practitioner 02/09/23 documented as of this encounter Additional Source Comments The information contained in this document represents components of the legal health record. It is not the complete legal health record.[facility]
--- OUTSIDE RECORDS SUMMARY | 2025-07-17 18:55 | XMS_ITS | Encounter Summary ---
Author Organization [facility] Address [address] [place] [address] Phone Care Team Providers Care Environmental Air Specialist Name Role Phone Belen Oviedo MD Primary Care Provider [phone] Sandro Price NP Primary Care Provider [phone] Encounter Details Date Type Department Care Team (Late st Contact Info) Description 01/17/2021 Procedure Pass [facility], [facility] [address] [place] [address] Social History Tobacco Use Types Packs/Day Years [...] Description 10/23/2025 11:00 AM EDT Office Visit [facility] Neurology Movement Disorders Program [address] [place] [address] Yany Edmond MD [address] [place] [address] [email or web address] 10/24/2025 12:30 PM EDT Office Visit [facility] Gastroenterology Clinic [address] [place] [address] Lyly Garza, PAULA [address] [address] [email or web address] documented as of this encounter Visit Diagnoses Not on filedocumented in this encounter Additional Health Concerns Infection Onset Date Last Indicated Resolved Time CoV-Exposed Comment:Exposed by staff on 06/26/21 06/26/2021 07/04/2021 07/07/2021 1:[address] CDiff-Risk 06/11/2025 06/11/2025 06/11/2025 1:49 AM EST Noro-Risk 06/11/2025 06/12/2025 06/15/2025 10:2 4 PM EST documented as of this encounter Care Teams Environmental Air Specialist Relationship Specialty Start Date End Date Belen Oviedo MD [facility] [place] [address] PCP - General 10/31/20 02/08/23 Sandro Price NP [address] [place] [address] PCP - General Nurse Practitioner 02/09/23 documented as of this encounter Additional Source Comments The information contained in this document represents components of the legal health record. It is not the complete legal health record.[facility]
--- OUTSIDE RECORDS SUMMARY | 2025-07-17 18:55 | XMS_ITS | Encounter Summary ---
Author Organization [facility] Address [address] [place] [address] Phone Care Team Providers Care Sem Manager Name Role Phone Sandro Price MERCHANDISING DIRECTOR Primary Care Provider [phone] Encounter Details Date Type Department Care Team (Late st Contact Info) Description 06/11/2025 Procedure Pass [place] Admitting Dept - Virtual Department [address] [place] [address] Social History Tobacco Use Types Packs/Day Years [...] Author No Risk Indicated 06/11/2025 12:08 AM Estelita Serna RN * [place] Suicide Severity Rating Scale (Screener/Recent Self-Report) Question [...] Description 10/23/2025 11:00 AM EDT Office Visit [facility]' Neurology Movement Disorders Program [address] [place] [address] Yany Edmond MD [address] [place] [address] [email or web address] 10/24/2025 12:30 PM EDT Office Visit [facility] Gastroenterology Clinic [address] [place] [address] Lyly Garza, PAULA [address] [place] [address] [email or web address] documented as of this encounter Visit Diagnoses Not on filedocumented in this encounter Additional Health Concerns Infection Onset Date Last Indicated Resolved Time CDiff-Risk 06/11/2025 06/11/2025 06/11/2025 1:49 AM EST Noro-Risk 06/11/2025 06/12/2025 06/15/2025 10:2 4 PM EST documented as of this encounter Care Teams Sem Manager Relationship Specialty Start Date End Date Sandro Price NP [address] [place] [address] PCP - General Nurse Practitioner 02/09/23 documented as of this encounter Additional Source Comments The information contained in this document represents components of the legal health record. It is not the complete legal health record.[facility]
== END 2025-07-17 15:22 | disposition home or self-care (01) ==
LOC: HO.HMCFM 14:41
PROVIDERS: PCP Internal Medicine; Visit Provider Internal Medicine
DX: K59.00 Constipation, unspecified (principal); F25.0 Schizoaffective disorder, bipolar type; R73.09 Other abnormal glucose

== ENCOUNTER → 2025-07-17 14:40 | Outpatient (BNVA) | payer OTHER, SELFPAY | PROVIDERS: PCP Nurse Practitioner Family; Visit Provider Internal Medicine | DX: Z76.89 Persons encountering health services in other specified circumstances (principal); K59.00 Constipation, unspecified; F25.0 Schizoaffective disorder, bipolar type; F98.8 Other specified behavioral and emotional disorders with onset usually occurring in childhood and adolescence; R73.09 Other abnormal glucose; Z79.899 Other long term (current) drug therapy | CPT/HCPCS: 83036; 99212 ==